=== PATIENT | male | born 1965 | race Two or more races ===

== ENCOUNTER 2023-06-11 10:01 | Emergency (ER) | payer OTHER ==
[~2023-06-11] VITALS: Ht 182.9 cm; Wt 96.3 kg
[2023-06-11 10:59] LABS: Basophils # (auto) 0.1 10 ^3/uL (0-0.2); Basophils % (auto) 1.1 % (0.0-2.0); Eosinophils # (auto) 0.3 10 ^3/uL (0-0.8); Eosinophils % (auto) 2.7 % (0.0-7.0); Hematocrit 48.1 % (41.0-53.0); Hemoglobin 16.9 g/dL (13.5-17.5); Lymphocytes # (auto) 2.1 10 ^3/uL (0.4-5.4); Lymphocytes % (auto) 20.8 % (10.0-50.0); Mean Corpuscular Hemoglobin 31.2 pg (28.0-32.0); Mean Corpuscular Hgb Conc. 35.2 g/dL (32.0-36.0); Mean Corpuscular Volume 88.6 fL (80.0-100.0); Monocytes # (auto) 0.9 10 ^3/uL (0-1.3); Monocytes % (auto) 8.7 % (0.0-12.0); Neutrophils # (auto) 6.7 10 ^3/uL (1.6-8.6); Neutrophils % (auto) 66.7 % (37.0-80.0); Nucleated Red Blood Cells % 0.1 %; Red Blood Cells 5.42 10^6/uL (4.5-5.90); Red Cell Distribution Width 13.7 % (11.8-14.3)
[2023-06-11] MEDS: SODIUM CHLORIDE 0.9% 500 ML IVB ONE (11:19)
[2023-06-11] MEDS: ONDANSETRON ODT 4 MG TAB PO ONE (11:24)
[2023-06-11 11:25] VITALS: PULSE 71; RESP 19; O2SAT 96
[2023-06-11 11:44] LABS: Alanine Aminotransferase 58 U/L (7-40); Albumin 4.5 g/dL (3.2-4.8); Alkaline Phosphatase 78 U/L (46-116); Anion Gap 6 (5-15); Aspartate Aminotransferase 37 U/L (13-40); BUN/Creatinine Ratio 14.2 (10.0-20.0); Blood Urea Nitrogen 17 mg/dL (9-23); Calcium 9.5 mg/dL (8.7-10.4); Carbon Dioxide 31 mmol/L (20-30); Chloride 99 mmol/L (98-107); Glucose 276 mg/dL (74-106); Lipase 47 U/L (12-53); Potassium 3.3 mmol/L (3.5-5.1); Sodium 136 mmol/L (136-145)
[2023-06-11 11:45] LABS: Bilirubin, Total 0.9 mg/dL (0.2-1.0); Total Protein 6.8 g/dL (5.7-8.2)
[2023-06-11 12:05] LABS: Urine Bacteria NONE SEEN /hpf (None Seen); Urine Blood Negative /uL (Negative); Urine Clarity Clear (Clear); Urine Color Yellow (Yellow); Urine Hyaline Cast FEW /lpf (0 - 2); Urine Mucus FEW (None Seen); Urine Protein, UAD TRACE (Negative); Urine Specific Gravity 1.028 (1.001-1.035); Urine Urobilinogen Normal (Negative); Urine WBC 1 /hpf (0 - 3)
[2023-06-11] MEDS ORDERED: ZOFR4T PO (12:15)
[2023-06-11 12:36] VITALS: BP 124/75; PULSE 61; RESP 15; TEMP 97; O2SAT 98
== END 2023-06-11 12:38 | disposition home or self-care (01) ==
LOC: ER 10:01
DX: B34.9 Viral infection, unspecified (principal); R11.0 Nausea; I10 Essential (primary) hypertension; Z79.899 Other long term (current) drug therapy
CPT/HCPCS: 36415; 74176; 80053; 81001; 83690; 85025; 96360; 99284; J7040; Q0162

== ENCOUNTER 2023-07-14 09:27 | Inpatient (IN) | payer OTHER ==
[~2023-07-14] VITALS: Ht 182.9 cm; Wt 95.6 kg
[~2023-07-14 09:27] MED LIST: ZOFR4T PO
[2023-07-14 10:12] LABS: Urine Bacteria None Seen /hpf (None Seen)
[2023-07-14 10:36] LABS: Basophils # (auto) 0.1 10 ^3/uL (0-0.2); Eosinophils # (auto) 0.2 10 ^3/uL (0-0.8); Eosinophils % (auto) 2.5 % (0.0-7.0); Hematocrit 48.8 % (41.0-53.0); Hemoglobin 16.9 g/dL (13.5-17.5); Lymphocytes # (auto) 1.7 10 ^3/uL (0.4-5.4); Lymphocytes % (auto) 24.3 % (10.0-50.0); Mean Corpuscular Hemoglobin 31.1 pg (28.0-32.0); Mean Corpuscular Hgb Conc. 34.6 g/dL (32.0-36.0); Monocytes # (auto) 0.5 10 ^3/uL (0-1.3); Monocytes % (auto) 7.2 % (0.0-12.0); Neutrophils # (auto) 4.5 10 ^3/uL (1.6-8.6); Nucleated Red Blood Cells % 0.1 %; Red Blood Cells 5.42 10^6/uL (4.5-5.90); Red Cell Distribution Width 13.5 % (11.8-14.3); White Blood Cell 6.9 10^3/uL (4.4-10.8)
[2023-07-14 10:39] LABS: Chloride 110 mmol/L (98-107); Sodium 144 mmol/L (136-145)
[2023-07-14 10:40] LABS: Anion Gap 8 (5-15); Calcium 9.5 mg/dL (8.5-10.1); Carbon Dioxide 26 mmol/L (20-30)
[2023-07-14 10:45] LABS: BUN/Creatinine Ratio 13.3 (10.0-20.0); Blood Urea Nitrogen 15 mg/dL (9-23); Glucose 297 mg/dL (74-106)
[2023-07-14 11:10] LABS: Urine Blood Negative /uL (Negative); Urine Clarity Clear (Clear); Urine Color Light-Yellow (Yellow); Urine Protein, UAD Negative (Negative); Urine Specific Gravity 1.028 (1.001-1.035); Urine Urobilinogen Normal (Negative); Urine WBC <1 /hpf (0 - 3)
[2023-07-14] MEDS: SODIUM CHLORIDE 0.9% 1,000 ML IV ONE (11:13)
[2023-07-14] MEDS ORDERED: ONDANSETRON HCL 4 MG/2 ML VIAL IV PRN (12:30)
[2023-07-14] MEDS ORDERED: DOCUSATE SOD 100 MG CAP PO PRN (12:30)
[2023-07-14] MEDS ORDERED: DEXTROSE (50%) 50ML SYRG IV PRN (12:30)
[2023-07-14] MEDS ORDERED: MORPHINE SULFATE INJ 2 MG/ml SYRG IV PRN (12:30)
[2023-07-14] MEDS: ACCU-CHEK COMFORT CURVE STRIP VI SCH (22:17)
[2023-07-14] MEDS: SODIUM CHLORIDE 0.9% 1,000 ML IV SCH (22:17)
[2023-07-14] MEDS: InsuLIN REG 1unit/0.01ml Soln (100units/ml) SC SCH (22:21)
[2023-07-14 22:24] VITALS: PULSE 62; RESP 18; O2SAT 97
[2023-07-14] MEDS: TAMSULOSIN HYDROCHLORIDE 0.4 MG CAP PO SCH (22:28)
[2023-07-15] VITALS (8 sets, daily range): BP systolic 115–138; BP diastolic 72–92; PULSE 48–75; RESP 14–20; TEMP 97.9–98.3; O2SAT 92–100
[2023-07-15] MEDS ORDERED: LISI20TA56 PO (00:30)
[2023-07-15] MEDS ORDERED: LISI-707 PO (00:30)
[2023-07-15] MEDS ORDERED: TAMS-35 PO (00:31)
[2023-07-15 05:43] LABS: Basophils # (auto) 0.1 10 ^3/uL (0-0.2); Basophils % (auto) 0.7 % (0.0-2.0); Eosinophils # (auto) 0.2 10 ^3/uL (0-0.8); Eosinophils % (auto) 2.8 % (0.0-7.0); Hemoglobin 14.8 g/dL (13.5-17.5); Lymphocytes % (auto) 25.1 % (10.0-50.0); Mean Corpuscular Hemoglobin 31.6 pg (28.0-32.0); Mean Corpuscular Hgb Conc. 35.2 g/dL (32.0-36.0); Mean Corpuscular Volume 89.6 fL (80.0-100.0); Monocytes # (auto) 0.6 10 ^3/uL (0-1.3); Monocytes % (auto) 7.7 % (0.0-12.0); Neutrophils # (auto) 5.1 10 ^3/uL (1.6-8.6); Neutrophils % (auto) 63.7 % (37.0-80.0); Red Blood Cells 4.69 10^6/uL (4.5-5.90); Red Cell Distribution Width 13.3 % (11.8-14.3)
[2023-07-15 05:52] LABS: Alanine Aminotransferase 40 U/L (7-40); Albumin 3.7 g/dL (3.2-4.8); Alkaline Phosphatase 65 U/L (46-116); Anion Gap 5 (5-15); Aspartate Aminotransferase 21 U/L (13-40); BUN/Creatinine Ratio 23.7 (10.0-20.0); Bilirubin, Total 1.4 mg/dL (0.2-1.0); Blood Urea Nitrogen 23 mg/dL (9-23); Calcium 9.1 mg/dL (8.7-10.4); Carbon Dioxide 29 mmol/L (20-30); Chloride 108 mmol/L (98-107); Potassium 3.6 mmol/L (3.5-5.1); Sodium 142 mmol/L (136-145); Total Protein 5.5 g/dL (5.7-8.2)
[2023-07-15] MEDS: ACETAMINOPHEN 325 MG TAB PO PRN (06:14)
[2023-07-15 06:24] LABS: Glucose 153 mg/dL (74-106)
[2023-07-16 01:00] VITALS: BP_SYST 138; BP_SYST 143; BP_DIAS 85; BP_DIAS 89; PULSE 57; PULSE 69; RESP 20; TEMP 97.8; O2SAT 93; O2SAT 95
[2023-07-16 05:00] VITALS: BP 136/89; PULSE 69; RESP 20; TEMP 98.1; O2SAT 96
[2023-07-16 07:06] LABS: Anion Gap 3 (5-15); Carbon Dioxide 27 mmol/L (20-30); Chloride 112 mmol/L (98-107); Potassium 3.9 mmol/L (3.5-5.1); Sodium 142 mmol/L (136-145)
[2023-07-16 07:08] LABS: Calcium 8.9 mg/dL (8.7-10.4)
[2023-07-16 07:12] LABS: BUN/Creatinine Ratio 20.4 (10.0-20.0); Blood Urea Nitrogen 19 mg/dL (9-23); Glucose 133 mg/dL (74-106)
[2023-07-16 07:15] LABS: Folate (Folic Acid) 10.32 ng/mL (>5.38)
[2023-07-16 07:19] LABS: Basophils # (auto) 0 10 ^3/uL (0-0.2); Basophils % (auto) 0.6 % (0.0-2.0); Eosinophils # (auto) 0.2 10 ^3/uL (0-0.8); Eosinophils % (auto) 3.4 % (0.0-7.0); Hematocrit 42.5 % (41.0-53.0); Hemoglobin 14.8 g/dL (13.5-17.5); Lymphocytes # (auto) 1.5 10 ^3/uL (0.4-5.4); Lymphocytes % (auto) 24.6 % (10.0-50.0); Mean Corpuscular Hemoglobin 31.3 pg (28.0-32.0); Mean Corpuscular Hgb Conc. 34.9 g/dL (32.0-36.0); Mean Corpuscular Volume 89.7 fL (80.0-100.0); Monocytes # (auto) 0.5 10 ^3/uL (0-1.3); Neutrophils # (auto) 3.8 10 ^3/uL (1.6-8.6); Neutrophils % (auto) 63.4 % (37.0-80.0); Nucleated Red Blood Cells % 0.2 %; Red Blood Cells 4.74 10^6/uL (4.5-5.90); Red Cell Distribution Width 13.6 % (11.8-14.3)
[2023-07-16 08:00] VITALS: PULSE 51
[2023-07-16 09:00] VITALS: BP 149/76; PULSE 57; RESP 20; TEMP 97.5; O2SAT 98
[2023-07-16 13:00] VITALS: BP_SYST 123; BP_SYST 142; BP_SYST 147; BP_DIAS 82; BP_DIAS 92; BP_DIAS 95; PULSE 56; RESP 18; TEMP 98; O2SAT 93
[2023-07-16] MEDS ORDERED: METF-489 PO (13:43)
[2023-07-16] MEDS ORDERED: LINA5TAB PO (13:43)
[2023-07-16 14:30] VITALS: TEMP 36.7
== END 2023-07-16 15:30 | disposition home or self-care (01) | DRG 639 ==
LOC: ER 09:27 → TELE 13:33 → TELE-WESTW 23:07
PROVIDERS: ADMIT Internal Medicine Pulmonary Disease; ATTEND Internal Medicine Pulmonary Disease
DX: E11.65 Type 2 diabetes mellitus with hyperglycemia (principal); I49.5 Sick sinus syndrome; I10 Essential (primary) hypertension; N40.0 Benign prostatic hyperplasia without lower urinary tract symptoms; Z79.4 Long term (current) use of insulin; Z79.899 Other long term (current) drug therapy
CPT/HCPCS: 36415; 70450; 80048; 80053; 81001; 82010; 82607; 82746; 82962; 83036; 83735; 84443; 84484; 85025; 93306; 93886; 96360; G0378; J1815

== ENCOUNTER 2024-01-14 15:13 | Emergency (ER) | payer OTHER ==
[~2024-01-14] VITALS: Ht 182.9 cm; Wt 96.9 kg
[~2024-01-14 15:13] MED LIST changes: +LINA5TAB PO; +LISI-707 PO; +METF-489 PO; +TAMS-35 PO
[2024-01-14 15:42] VITALS: BP 143/97; PULSE 75; RESP 16; TEMP 98; O2SAT 97
[2024-01-14] MEDS: cefTRIAXone SOD 1,000 MG VL IM ONE (16:43)
[2024-01-14 17:22] LABS: Basophils # (auto) 0.1 10 ^3/uL (0-0.2); Eosinophils # (auto) 0.4 10 ^3/uL (0-0.8); Eosinophils % (auto) 5.7 % (0.0-7.0); Hematocrit 43.6 % (41.0-53.0); Hemoglobin 15.3 g/dL (13.5-17.5); Lymphocytes # (auto) 1.6 10 ^3/uL (0.4-5.4); Lymphocytes % (auto) 22.5 % (10.0-50.0); Mean Corpuscular Hemoglobin 31.8 pg (28.0-32.0); Mean Corpuscular Hgb Conc. 35.1 g/dL (32.0-36.0); Mean Corpuscular Volume 90.9 fL (80.0-100.0); Monocytes # (auto) 0.8 10 ^3/uL (0-1.3); Monocytes % (auto) 10.6 % (0.0-12.0); Neutrophils # (auto) 4.3 10 ^3/uL (1.6-8.6); Neutrophils % (auto) 60.2 % (37.0-80.0); Nucleated Red Blood Cells % 0.1 %; Platelet Count (auto) 247 10^3/uL (140-450); Red Blood Cells 4.79 10^6/uL (4.5-5.90); Red Cell Distribution Width 13.6 % (11.8-14.3); White Blood Cell 7.2 10^3/uL (4.4-10.8)
[2024-01-14 17:25] LABS: Chloride 109 mmol/L (98-107); Sodium 146 mmol/L (136-145)
[2024-01-14 17:26] LABS: Anion Gap 6 (5-15); Calcium 10.5 mg/dL (8.7-10.4); Carbon Dioxide 31 mmol/L (20-31)
[2024-01-14] MEDS ORDERED: TRIO1TP EX (17:28)
[2024-01-14] MEDS ORDERED: LORA10TA6 PO (17:28)
[2024-01-14 17:31] LABS: BUN/Creatinine Ratio 11.7 (10.0-20.0); Blood Urea Nitrogen 13 mg/dL (9-23); Glucose 115 mg/dL (74-106)
== END 2024-01-14 17:56 | disposition home or self-care (01) ==
LOC: ER 15:13
DX: I87.2 Venous insufficiency (chronic) (peripheral) (principal); I10 Essential (primary) hypertension; Z79.84 Long term (current) use of oral hypoglycemic drugs; Z79.899 Other long term (current) drug therapy
CPT/HCPCS: 36415; 80048; 85025; 93970; 96372; 99285; J0696

== ENCOUNTER 2024-07-13 09:33 | Inpatient (IN) | payer OTHER ==
[~2024-07-13] VITALS: Ht 182.9 cm; Wt 95.0 kg
[~2024-07-13 09:33] MED LIST changes: +LORA10TA6 PO; +TRIO1TP EX
--- NOTE | 2024-07-13 10:01 | ECG ---
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
--- NOTE | 2024-07-13 11:03 | ED.PDOC ---
History of Present Illness HPI Comments 59 y/o M, with a Hx of DMII, HTN, BPH, and chewing tobacco use, presents with c/o dizziness, lightheadedness, nausea, headache, and shortness of breath for 4 days, today. Patient reports persisting symptoms that occur whenever he stands up or stand for prolong periods of time following initial, unprovoked onset. He also reports on having yellow-watery diarrhea with other symptoms that has since subsided prior to ED arrival. Patient reports no recent injuries, sick contact, travel, or other relevant information upon initial assessment. He denies any chest pain, weakness, fever, chills, urinary symptoms, or other associated symptoms or modifiers at this time. Chief Complaint: Dizziness Time Seen by MD: 10:45 Primary Care Provider: unknown Reviewed Notes: Nurses Notes, Medications, Allergies Allergies: Coded Allergies: Penicillins (Verified Allergy, Severe, anaphylaxis, 07/13/24) Home Meds Active Scripts Loratadine (Loratadine) 10 Mg Tab, 10 MG PO DAILY for 30 Days, #30 TAB 0 Refills Prov:RATNA BECKER NP 01/14/24 Triamcinolone Acetonide (Triamcinolone Acetonide) 0.1 % Cre, 2 GRAMS EX BID for 10 Days, #120 GRAMS 0 Refills Prov:RATNA BECKER NP 01/14/24 Linagliptin Base (TRADJENTA) 5 Mg Tab, 1 TAB PO DAILY for 30 Days, #30 TAB 2 Refills Prov:STEFANIE CHAVEZ RESIDENT 07/16/23 Metformin Hydrochloride (METFORMIN HCL ER) 500 Mg Tab, 1 TAB PO DAILY for 30 Days, #30 TAB 2 Refills Prov:STEFANIE CHAVEZ RESIDENT 07/16/23 Ondansetron Odt 4MG Tab (ZOFRAN PO) 4 Mg Tb, 4 MG PO Q8HP PRN for 5 Days, #15 TAB ODT TAB-DISSOLVE IN MOUTH, THEN SWALLOW Prov:EDELMIRA RICHTER MD 06/11/23 Reported Medications Tamsulosin Hcl (Flomax) 0.4 Mg Cap, 0.4 MG PO DAILY, CAP 07/15/23 Lisinopril & Hydrochlorothiazi (Zestoretic 20-25 mg) 1 Tab Tab, 1 TAB PO DAILY, TAB 07/15/23 Information Source: Patient Mode of Arrival: Ambulatory Severity: Moderate Timing: Days Duration: Since onset Prehospital treatment: None Past Medical History PAST MEDICAL HISTORY: DM (type II ), HTN Past Medical History (Other): BPH Surgical History: Tonsillectomy Family History Family History: Reviewed,noncontributory to illness, No family hx of Cancer, No family hx of Heart vamsi, No family hx of HTN, No family hx ofKidney vamsi, No family hx of Liver vamsi, No family hx of Lung vamsi, No family hx of Stroke, Family hx of DM Social History Smoker: Non-Smoker Alcohol: Denies ETOH Use Drugs: Other (chewing tobacco ) Lives In: Home Constitutional: denies: chills, diaphoresis, fatigue, fever, malaise, sweats, weakness, others EENTM: denies: blurred vision, double vision, ear bleeding, ear discharge, ear drainage, ear pain, ear ringing, eye pain, eye redness, hearing loss, mouth pain, mouth swelling, nasal discharge, nose bleeding, nose congestion, nose pa in, photophobia, tearing, throat pain, throat swelling, voice changes, others Respiratory: reports: shortness of breath; denies: cough, hemoptysis, orthopnea, SOB at rest, SOB with excertion, stridor, wheezing, others Cardiovascular: reports: dizzy spells, lightheadedness; denies: chest pain, diaphoresis, Dyspnea on exertion, edema, irregular heart beat, left arm pain, palpitations, PND, syncope, others Gastrointestinal: reports: nausea; denies: abdomen distended, abdominal pain, blood streaked bowels, constipated, diarrhea, dysphagia, difficulty swallowing, hematemesis, melena, poor appetite, poor fluid intake, rectal bleeding, rectal pain, vomiting, others Genitourinary: denies: burning, dysuria, flank pain, frequency, hematuria, incontinence, penile discharge, penile sore, pain, testicle pain, testicle swelling, urgency, others Neurological: reports: headache; denies: dizziness, fainting, left sided numbness, left sided weakness, numbness, paresthesia, pre-existing deficit, right sided numbness, right sided weakness, seizure, speech problems, tingling, tremors, weakness, others Musculoskeletal: denies: back pain, gout, joint pain, joint swelling, muscle pain, muscle stiffness, neck pain, others Integumetry: denies: bruises, change in color, change in hair/nails, dryness, laceration, lesions, lumps, rash, wounds, others Allergic/Immunocompromised: denies: Difficulty Healing, Frequent Infections, Hives, Itching, others Hematologic/Lymphatic: denies: anemia, blood clots, easy bleeding, easy bruising, swollen glands, others Endocrine: denies: excessive hunger, excessive sweating, excessive thirst, excessive urination, flushing, intolerance to cold, intolerance to heat, unexplained weight gain, unexplained weight loss, others Psychiatric: denies: anxiety, bipolar disorder, depression, hopeless, panic disorder, schizophrenia, sleepless, suicidal, others All Other Systems: Reviewed and Negative Physical Exam General Appearance: Moderate Distress HEENT: Normal ENT Inspection, Pharynx Normal, TMs Normal Neck: Full Range of Motion, Non-Tender, Normal, Normal Inspection Respiratory: Chest Non-Tender, Lungs Clear, No Accessory Muscle Use, No Respiratory Distress, Normal Breath Sounds Cardiovascular: No Edema, No JVD, No Murmur, No Gallop, Normal Peripheral Pulses, Regular Rate/Rhythm Breast Exam: Deferred Gastrointestinal: No Organomegaly, Non Tender, No Pulsatile Mass, Normal Bowel Sounds, Soft Genitalia: Deferred Pelvic: Deferred Rectal: Deferred Extremities: No calf tenderness, Normal capillary refill, No pedal edema Musculoskeletal : Apperance: Normal Neurologic: Alert, graduate internship II-XII nml as Tested, Motor Weakness, Normal Affect, Normal Mood, No Sensory Deficits Cerebellar Function: Ataxia Reflexes: Normal Skin: Dry, Normal Color, Warm Lymphatic: No Adenopathy Was a procedure done? Was a procedure done?: No Differential Dx Considerations may include: vertigo, electrolyte imbalance, dehydration, viral syndrome, URI, UTI, among others X-Ray, Labs, Meds, VS Vital Signs Date Time Temp Pulse Resp B/P (MAP) Pulse Ox O2 Delivery O2 Flow Rate FiO2 07/13/24 09:54 97.9 87 18 111/72 (85) 96 97.9 07/13/24 09:52 72 Lab Test 07/13/24 11:09 Range/Units White Blood Count 8.1 4.4-10.8 10^3/uL Red Blood Count 5.53 4.5-5.90 10^6/uL Hemoglobin 17.2 13.5-17.5 g/dL Hematocrit 50.0 41.0-53.0 % Mean Corpuscular Volume 90.5 80.0-100.0 fL Mean Corpuscular Hemoglobin 31.1 28.0-32.0 pg Mean Corpuscular Hemoglobin Concent 34.4 32.0-36.0 g/dL Red Cell Distribution Width 13.6 11.8-14.3 % Platelet Count 232 140-450 10^3/uL Mean Platelet Volume 7.8 6.9-10.8 fL Neutrophils (%) (Auto) 63.1 37.0-80.0 % Lymphocytes (%) (Auto) 24.5 10.0-50.0 % Monocytes (%) (Auto) 9.2 0.0-12.0 % Eosinophils (%) (Auto) 2.2 0.0-7.0 % Basophils (%) (Auto) 1.0 0.0-2.0 % Neutrophils # (Auto) 5.1 1.6-8.6 10 ^3/uL Lymphocytes # (Auto) 2.0 0.4-5.4 10 ^3/uL Monocytes # (Auto) 0.7 0-1.3 10 ^3/uL Eosinophils # (Auto) 0.2 0-0.8 10 ^3/uL Basophils # (Auto) 0.1 0-0.2 10 ^3/uL Nucleated Red Blood Cells 0.1 % D-Dimer, Quantitative 0.30 0.0-0.49 mg/L FEU Sodium Level 142 136-145 mmol/L Potassium Level 3.4 L 3.5-5.1 mmol/L Chloride Level 103 98-107 mmol/L Carbon Dioxide Level 30 20-31 mmol/L Anion Gap 9 5-15 Blood Urea Nitrogen 21 9-23 mg/dL Creatinine 1.11 0.700-1.30 mg/dL Glomerular Filtration Rate Calc 76 >90 mL/min BUN/Creatinine Ratio 18.9 10.0-20.0 Serum Glucose 124 H 74-106 mg/dL Calcium Level 10.4 8.7-10.4 mg/dL CAT scan of the head is negative The patient's CBC is within normal limits The chemistry panel is within normal limits The D-dimer is negative At this time, the patient is stating they can get somewhat dizzy and seems somewhat off balance. The patient is being admitted with a diagnosis of autonomic dysfunction IV Hep-Lock was established Neurology consult will be obtained Images Reviewed?: Images reviewed and evaluated by me Time of 1ST Reevaluation: 11:15 Reevaluation 1ST: Unchanged Patient Education/Counseling: Diagnosis, Treatment, Prognosis Family Education/Counseling: No Family Present Departure 1 Departure Time of Disposition: 12:07 Impression: Primary Impression: Generalized weakness Additional Impression: Autonomic dysfunction Disposition: 09 ADMITTED INPATIENT Admit to: Tele Condition: Fair Critical Care Note Critical Care Time?: Yes (35 min-critical care time only) Stability Stability form required: Yes Unstable for transfer: Telemetry monitoring (Telemetry monitoring required), ED Physician Assesment (Clinical assesment) Heart Score Heart Score: Heart Score Response (Comments) Value History Moderate Suspicious 1 EKG Normal 0 Age 45-64 1 Risk Factors >3 or Hx ASHD 2 Troponin N/A 0 Total 4 I personally scribed for EDELMIRA RICHTER MD ([email or web address]) on 07/13/24 at 11:03. Electronically submitted by Jeffrey Virgen ([email or web address]). EDELMIRA RICHTER MD Jul 13, 2024 11:03
--- NOTE | 2024-07-13 11:18 | DVH ---
CLINICAL INFORMATION: 59 years old, Male; dizziness. TECHNIQUE: Axial imaging was obtained through the brain without contrast. Coronal and sagittal reform atted images were obtained, reviewed, and stored. Images were reviewed in brain and bone windows. Al l CT scans at this medical facility are performed using dose modulation techniques as appropriate to a performed exam including the following: Automated exposure control was utilized; adjustment of the MA and/or KV according to patient size; and use of iterative reconstruction technique. CTDIvol = 56.9 2 mGy DLP = 912.37 mGy-cm COMPARISON: CT HEAD WITHOUT CONTRAST on DOS: 07/14/23 FINDINGS: There is no acute intracranial hemorrhage. No mass effect or midline shift. The ventricles and sulci are within normal limits in size for age. Basal cisterns are patent. The calvarium is unre markable. Paranasal sinuses and mastoid air cells are clear. IMPRESSION: No CT evidence of acute intracranial abnormality.
[2024-07-13 11:30] LABS: Chloride 103 mmol/L (98-107); Sodium 142 mmol/L (136-145)
[2024-07-13 11:31] LABS: Anion Gap 9 (5-15); Carbon Dioxide 30 mmol/L (20-31)
[2024-07-13 11:36] LABS: BUN/Creatinine Ratio 18.9 (10.0-20.0); Blood Urea Nitrogen 21 mg/dL (9-23)
[2024-07-13 11:38] LABS: Calcium 10.4 mg/dL (8.7-10.4); Glucose 124 mg/dL (74-106); Potassium 3.4 mmol/L (3.5-5.1)
[2024-07-13 11:40] LABS: Basophils # (auto) 0.1 10 ^3/uL (0-0.2); Eosinophils # (auto) 0.2 10 ^3/uL (0-0.8); Eosinophils % (auto) 2.2 % (0.0-7.0); Hemoglobin 17.2 g/dL (13.5-17.5); Lymphocytes % (auto) 24.5 % (10.0-50.0); Mean Corpuscular Hemoglobin 31.1 pg (28.0-32.0); Mean Corpuscular Hgb Conc. 34.4 g/dL (32.0-36.0); Mean Corpuscular Volume 90.5 fL (80.0-100.0); Monocytes # (auto) 0.7 10 ^3/uL (0-1.3); Monocytes % (auto) 9.2 % (0.0-12.0); Neutrophils # (auto) 5.1 10 ^3/uL (1.6-8.6); Neutrophils % (auto) 63.1 % (37.0-80.0); Nucleated Red Blood Cells % 0.1 %; Platelet Count (auto) 232 10^3/uL (140-450); Red Blood Cells 5.53 10^6/uL (4.5-5.90); Red Cell Distribution Width 13.6 % (11.8-14.3); White Blood Cell 8.1 10^3/uL (4.4-10.8)
[2024-07-13 14:01] VITALS: PULSE 66; RESP 16; O2SAT 97
[2024-07-13] MEDS ORDERED: [UNRECOGNIZED DRUG - CODE] PO (14:41)
[2024-07-13] MEDS ORDERED: HYDROcodone-ACET 5/325MG TAB PO PRN (14:45)
[2024-07-13] MEDS ORDERED: DOCUSATE SOD 100 MG CAP PO PRN (14:45)
[2024-07-13] MEDS ORDERED: MORPHINE SULFATE INJ 2 MG/ml SYRG IV PRN (14:45)
[2024-07-13] MEDS ORDERED: DEXTROSE (50%) 50ML SYRG IV PRN (14:45)
[2024-07-13] MEDS ORDERED: ONDANSETRON HCL 4 MG/2 ML VIAL IV PRN (14:45)
[2024-07-13] MEDS ORDERED: NITROGLYCERIN 0.4 MG SL TAB SL PRN (14:45)
--- NOTE | 2024-07-13 14:57 | DVHHP2 ---
History of Present Illness Reason for Visit: Dizziness History of Present Illness Norman Garibay is a 59-year-old male with past medical history of hypertension, diabetes, and BPH, who came in with complaints of being dizzy. Patient states he has been dizzy and had diarrhea for about 5 days. He took medication for the diarrhea yesterday 3 times and states he had diarrhea twice yesterday morning, but nothing since. He states he has been experiencing nausea and headaches as well. Cardiovascular: HTN Musculoskeletal: Chronic low back pain Renal/: Benign prostatic enlarg. Endocrine: Diabetes Past Surgical History: Tonsillectomy Smoke: No ALCOHOL: none Drugs: None Lives: with Family Domestic Violence: Neg Review of Systems Constitutional: Yes: Weakness, Other (headache); No: Fever, Chills, Sweats, Malaise Eyes: No: Pain, Vision change, Conjunctivae inflammation, Eyelid inflammation, Other, Redness ENT: No: Ear pain, Ear discharge, Nose pain, Nose discharge, Nose congestion, Mouth pain, Mouth swelling, Throat pain, Throat swelling, Other Respiratory: No: Cough, Dry, Shortness of breath, SOB with excertion, Wheezing, Hemoptysis, Pleuritic Pain, Sputum, Wheezing, Other Cardiovascular: No: Chest Pain, Palpitations, Orthopnea, Paroxysmal Noc. Dyspnea, Edema, Lt Headedness, Other Gastrointestinal: Diarrhea; No: Nausea, Vomiting, Abdominal Pain, Constipation, Melena, Hematochezia, Other Genitourinary: No Dysuria, No Frequency, No Incontinence, No Hematuria, No Retention, No Other Musculoskeletal: No: other, neck pain, shoulder pain, arm pain, back pain, hand pain, leg pain, foot pain Skin: No: Rash, Lesions, Jaundice, Bruising, Other Neurological: Incoordination, Other (dizziness); No: Weakness, Numbness, Change in speech, Confusion, Seizures Allergies: Coded Allergies: Penicillins (Verified Allergy, Severe, anaphylaxis, 07/13/24) Medications Current Medications Medications Dose Ordered Sig/Shubham Route Start Time Stop Time Status Last Admin Dose Admin Acetaminophen/ Hydrocodone Bitart 1 tab Q4HP PRN PO 07/13/24 14:45 UNV Ondansetron HCl 4 mg Q4HP PRN IV 07/13/24 14:45 UNV Docusate Sodium 100 mg BIDPRN PRN PO 07/13/24 14:45 UNV Acetaminophen 650 mg Q6HP PRN PO 07/13/24 14:45 UNV Nitroglycerin 0.4 mg Q5MINP PRN SL 07/13/24 14:45 UNV Morphine Sulfate 2 mg Q30M PRN IV 07/13/24 14:45 UNV Tamsulosin HCl 0.4 mg DAILY PO 07/14/24 10:00 UNV Patient Own Medication 1 tab DAILY PO 07/14/24 10:00 UNV Diagnostic Test (Pha) 1 strip ACHS 07/13/24 17:00 UNV Insulin Human Regular HS SC 07/13/24 22:00 UNV Insulin Human Regular AC SC 07/13/24 17:00 UNV Dextrose 50 ml UD PRN IV 07/13/24 14:45 UNV Exam Vital Signs Vital Signs Date Time Temp Pulse Resp B/P (MAP) Pulse Ox O2 Delivery O2 Flow Rate FiO2 07/13/24 14:34 51 16 91/60 (70) 97 07/13/24 14:01 Room Air* 0 21 07/13/24 14:01 98.2 98.2 General Appearance: Alert, Oriented X3, Cooperative HEENT: Atraumatic, PERRLA, Mucous membr. moist/pink Respiratory: Clear to auscultation, Normal air movement Cardiovascular: Regular rate, Normal S1, Normal S2, No murmurs Abdominal: Normal bowel sounds, Soft, No tenderness, No hepatospenomegaly Extremities: No clubbing, No cyanosis, No edema, Normal pulses Skin: No rashes, No breakdown, No significant lesion Neuro: Normal gait, Normal speech, Strength at 5/5 X4 ext, Normal tone Psych/Mental Status: Mental status NL, Mood NL Labs/Xrays Labs Test 07/13/24 11:09 Range/Units White Blood Count 8.1 4.4-10.8 10^3/uL Red Blood Count 5.53 4.5-5.90 10^6/uL Hemoglobin 17.2 13.5-17.5 g/dL Hematocrit 50.0 41.0-53.0 % Mean Corpuscular Volume 90.5 80.0-100.0 fL Mean Corpuscular Hemoglobin 31.1 28.0-32.0 pg Mean Corpuscular Hemoglobin Concent 34.4 32.0-36.0 g/dL Red Cell Distribution Width 13.6 11.8-14.3 % Platelet Count 232 140-450 10^3/uL Mean Platelet Volume 7.8 6.9-10.8 fL Neutrophils (%) (Auto) 63.1 37.0-80.0 % Lymphocytes (%) (Auto) 24.5 10.0-50.0 % Monocytes (%) (Auto) 9.2 0.0-12.0 % Eosinophils (%) (Auto) 2.2 0.0-7.0 % Basophils (%) (Auto) 1.0 0.0-2.0 % Neutrophils # (Auto) 5.1 1.6-8.6 10 ^3/uL Lymphocytes # (Auto) 2.0 0.4-5.4 10 ^3/uL Monocytes # (Auto) 0.7 0-1.3 10 ^3/uL Eosinophils # (Auto) 0.2 0-0.8 10 ^3/uL Basophils # (Auto) 0.1 0-0.2 10 ^3/uL Nucleated Red Blood Cells 0.1 % D-Dimer, Quantitative 0.30 0.0-0.49 mg/L FEU Sodium Level 142 136-145 mmol/L Potassium Level 3.4 L 3.5-5.1 mmol/L Chloride Level 103 98-107 mmol/L Carbon Dioxide Level 30 20-31 mmol/L Anion Gap 9 5-15 Blood Urea Nitrogen 21 9-23 mg/dL Creatinine 1.11 0.700-1.30 mg/dL Glomerular Filtration Rate Calc 76 >90 mL/min BUN/Creatinine Ratio 18.9 10.0-20.0 Serum Glucose 124 H 74-106 mg/dL Calcium Level 10.4 8.7-10.4 mg/dL CT Head: FINDINGS: There is no acute intracranial hemorrhage. No mass effect or midline shift. The ventricles and sulci are within normal limits in size for age. Basal cisterns are patent. The calvarium is unremarkable. Paranasal sinuses and mastoid air cells are clear. IMPRESSION: No CT evidence of acute intracranial abnormality. Assessment/Plan Assessment/Plan Assessment: Autonomic dysfunction, Hypokalemia, Dehydration, Hypertension, Diabetes, Plan: Admit to Tele, Neurology consult, IV hydration, Manage/Monitor electrolytes closely, Home medications reconciled, Plan discussed with: Patient My Orders Orders - GREYSON PELAYO CONCRETE VIBRATOR OPERATOR Procedure Category Date Status Time Admit ADMIT 07/13/24 Transmitted 14:32 Code Status CODE 07/13/24 Transmitted 14:32 2 Gm Sodium Diet DIET 07/13/24 Transmitted Dinner Hydrocodone-Acet PHA 07/13/24 Logged 5/325mg Tab ([place] 14:45 Ondansetron Hcl PHA 07/13/24 Logged (Zofran) 14:45 Docusate Sodium PHA 07/13/24 Logged Capsule (Colace 14:45 Complete Blood Count LAB 07/14/24 Verified 04:00 Comprehensive LAB 07/14/24 Verified Metabolic Panel 04:00 Condition: Serious BRIANA 07/13/24 In Process 14:32 Acetaminophen Tablet PHA 07/13/24 Logged (Tylenol Tablet) 14:45 Nitroglycerin PHA 07/13/24 Logged Sublingual (Ntrostat 14:45 Morphine Sulfate PHA 07/13/24 Logged Injection 14:45 Stat Ekg For Chest BRIANA 07/13/24 In Process Pain 14:32 Notify Md Of Changes BANNER 07/13/24 In Process From Base 14:32 Wastewater Treatment Plant Supervisor For BANNER 07/13/24 In Process 24 Hours 14:32 Emergency Dysrhythmia BANNER 07/13/24 In Process Protocol 14:32 Rhythm Strips Once BANNER 07/13/24 In Process Every Shift 14:32 Oxygen By Nasal RT 07/13/24 Transmitted Cannula 14:32 Tamsulosin PHA 07/14/24 Logged Hydrochloride (Flomax) 10:00 (Nf) Lisinopril & PHA 07/14/24 Logged Hydrochlorothiazi (Zes 10:00 Glucose Blood PHA 07/13/24 Logged (Accu-Chek Comfort 17:00 Insulin R (Human) PHA 07/13/24 Logged (Insulin R) 22:00 Insulin R (Human) PHA 07/13/24 Logged (Insulin R) 17:00 Dextrose 50% Syringe PHA 07/13/24 Logged 14:45 Sodium Chloride 0.9% PHA 07/13/24 Logged 14:45 Potassium Er Tablet PHA 07/13/24 Logged (Klor-Con Tablet) 14:45 Date of Service: Jul 13, 2024 Billing Provider: GREYSON PELAYO CONCRETE VIBRATOR OPERATOR Common Visit Codes: [id number] INP/OBS CARE (MOD) GREYSON PELAYO [facility] Jul 13, 2024 14:57
[2024-07-13] MEDS: SODIUM CHLORIDE 0.9% 1,000 ML IV ONE (15:41)
[2024-07-13] MEDS: POTASSIUM CHL 20 Meq TABLET PO ONE (15:49)
[2024-07-13 15:54] LABS: COVID19 ANTIGEN SOFIA FIA NEGATIVE (NEGATIVE)
[2024-07-13 17:00] LABS: Urine Bacteria None Seen /hpf (None Seen)
[2024-07-13 17:14] LABS: Urine Blood Negative /uL (Negative); Urine Clarity Clear (Clear); Urine Color Light-Yellow (Yellow); Urine Hyaline Cast FEW /lpf (0 - 2); Urine Mucus FEW (None Seen); Urine Protein, UAD TRACE (Negative); Urine Specific Gravity 1.016 (1.001-1.035); Urine Squamous Epithelial Cell FEW /hpf (<5); Urine Urobilinogen Normal (Negative); Urine WBC < 1 /HPF (0-3); Urine pH 5.5 (5.0-9.0)
[2024-07-13] MEDS: ACCU-CHEK COMFORT CURVE STRIP VI SCH (17:50)
[2024-07-13] MEDS: InsuLIN REG 1unit/0.01ml Soln (100units/ml) SC SCH ×2 (17:51→22:00)
--- NOTE | 2024-07-13 23:30 | DVHINCON2 ---
Date of service: Jul 13, [address] Elena Reason for Consultation Cerebellar dysfunction History of Present Illness Mr. Garibay is a 59 years old right-handed gentleman with a history of hypertension, diabetes, BPH, he came to the [facility] on 07/13/2024 with a chief company of dizziness, headache. At this time, he is alert and fully oriented, but is not a good historian,, he provided the following history Since 05/2024, he has very brief spells of dizziness/spinning sensation, being tilted off triggered by lying down, getting up from bed, reason or bending the head Since 05/2024, he has bed consistent dizziness/spinning sensation along with nausea, headache, and problems are obvious worsened by lying down, getting up, raising or bending the head, he also has associated imbalance, nausea. He denies vision changes focal weakness numbness except for intermittent pain in the right leg Urinalysis, 07/13/2024: WBC: 1, urine leukocyte esterase: negative CBC, 07/13/2024: Unremarkable BMP, 07/13/2024: Unremarkable Vitamin B12, 06/2023: 970 Folic acid, 06/2023: 10.32 CT head, : No CT evidence of acute intracranial abnormality Past Medical History Hypertension, diabetes, BPH Past Surgical History Tonsillectomy Family History: Diabetes mellitus G8 MOTHER Family History Diabetes mother had dementia Social History He is not a tobacco smoker, he chews tobacco. He was no history of alcohol or recreational substance abuse Allergies: Coded Allergies: Penicillins (Verified Allergy, Severe, anaphylaxis, 07/13/24) Home Meds Active Scripts Loratadine (Loratadine) 10 Mg Tab, 10 MG PO DAILY for 30 Days, #30 TAB 0 Refills Prov:RATNA BECKER GEOCHEMIST 01/14/24 Linagliptin Base (TRADJENTA) 5 Mg Tab, 1 TAB PO DAILY for 30 Days, #30 TAB 2 Refills Prov:STEFANIE CHAVEZ 07/16/23 Reported Medications Metformin Hydrochloride (Glumetza) 1,000 Mg Tab, 1000 MG PO BID 07/13/24 Tamsulosin Hcl (Flomax) 0.4 Mg Cap, 0.4 MG PO DAILY, CAP 07/15/23 Lisinopril & Hydrochlorothiazi (Zestoretic 20-25 mg) 1 Tab Tab, 1 TAB PO DAILY, TAB 07/15/23 Discontinued Scripts Triamcinolone Acetonide (Triamcinolone Acetonide) 0.1 % Cre, 2 GRAMS EX BID for 10 Days, #120 GRAMS 0 Refills Prov:RATNA BECKER GEOCHEMIST 01/14/24 Metformin Hydrochloride (METFORMIN HCL ER) 500 Mg Tab, 1 TAB PO DAILY for 30 Days, #30 TAB 2 Refills Prov:STEFANIE CHAVEZ RESIDENT 07/16/23 Ondansetron Odt 4MG Tab (ZOFRAN PO) 4 Mg Tb, 4 MG PO Q8HP PRN for 5 Days, #15 TAB ODT TAB-DISSOLVE IN MOUTH, THEN SWALLOW Prov:EDELMIRA ELENA MD 06/11/23 Current Medications Current Medications Medications (Trade) Dose Ordered Sig/Shubham Route PRN Reason Start Time Stop Time Status Last Admin Acetaminophen/ Hydrocodone Bitart ([place] 5/325MG Tab) 1 tab Q4HP PRN PO MODERATE PAIN (4-6 PAIN SCALE) 07/13/24 14:45 Ondansetron HCl (Zofran) 4 mg Q4HP PRN IV NAUSEA / VOMITING 07/13/24 14:45 Docusate Sodium (Colace Capsule) 100 mg BIDPRN PRN PO FOR CONSTIPATION 07/13/24 14:45 Acetaminophen (Tylenol Tablet) 650 mg Q6HP PRN PO PAIN SCALE 1-3 OR TEMP>100.4 07/13/24 14:45 Nitroglycerin (Ntrostat Sublingual) 0.4 mg Q5MINP PRN SL FOR CHEST PAIN 07/13/24 14:45 Morphine Sulfate 2 mg Q30M PRN IV FOR CHEST PAIN 07/13/24 14:45 Tamsulosin HCl (Flomax) 0.4 mg DAILY PO 07/14/24 10:00 Patient Own Medication 1 tab DAILY PO 07/14/24 10:00 UNV Diagnostic Test (Pha) (Accu-Chek Comfort Curve T) 1 strip ACHS 07/13/24 17:00 07/13/24 17:50 Insulin Human Regular (InsuLIN R) HS SC 07/13/24 22:00 Insulin Human Regular (InsuLIN R) AC SC 07/13/24 17:00 Dextrose 50 ml UD PRN IV Blood Sugar LESS THAN 60 07/13/24 14:45 Lisinopril (Zestril Tablet) 20 mg DAILY PO 07/14/24 10:00 Hydrochlorothiazide (hydroCHLOROthiazide TABLET) 25 mg DAILY PO 07/14/24 10:00 Review of Systems As above, the other systems are negative Vital Signs Vital Signs Date Time Temp Pulse Resp B/P (MAP) Pulse Ox O2 Delivery O2 Flow Rate FiO2 07/13/24 14:34 51 16 91/60 (70) 97 07/13/24 14:01 Room Air* 0 21 07/13/24 14:01 98.2 98.2 Physical Exam GENERAL EXAM: General: the patient is well developed and nourished. No acute distress. HEENT: Normocephalic, neck is supple, no carotid bruits. No mass. RESPIRATORY: Normal respiratory effort with symmetrical lung expansion. Lungs clear to auscultation. CARDIOVASCULAR: Regular rate and rhythm with no murmurs. S1, S2. ABDOMEN: Soft, nontender, normal bowel sound NEUROLOGICAL: MENTAL STATUS: Awake and alert. Oriented to person, place, time and general circumstances. SPEECH, LANGUAGE, HIGHER CORTICAL FUNCTION: no aphasia or dysathria. CRANIAL NERVES: #2: Intact visual duncan to confrontation. The optic discs were sharp. #3,4,6: Pupils are equal, round and reactive. EOMs full and conjugate. No nystagmus. #5: Facial sensation intact in all three divisions bilaterally. Mandibular strength intact. #7: Facial muscles symmetrical and strength intact. #8: Hearing grossly normal to voice. Tympanic membranes are intact #9,10: Uvula and soft palate rise in the midline. Swallow and voice are normal. #11: Trapezius and sternomastoid strength intact bilaterally. #12: Tongue midline. No fasciculations or atrophy. SENSATION: Sensation to touch and pinprick is normal. MOTOR: Normal tone in the upper and lower extremity. Normal muscle bulk. No fasciculations. No abnormal movements or posturing. Muscle strength of the major groups in the upper extremities is 5/5. Muscle strength of the major groups in the lower extremities is 5/5. REFLEXES: Deep tendon reflexes normal and symmetrical. No pathological reflexes. CEREBELLAR/COORDINATION: Finger to nose is normal bilaterally. GAIT/STATION: deferred. Labs/Diagnostic Data Labs Test 07/13/24 17:46 07/13/24 16:58 07/13/24 14:00 4/15/25 11:09 Range/Units POC Glucose 121 H 70-106 mg/dl Urine Color Light-yellow Yellow Urine Clarity Clear Clear Urine pH 5.5 5.0-9.0 Urine Specific [place] 1.016 1.001-1.035 Urine Protein Trace H Negative Urine Ketones Trace Negative Urine Blood Negative Negative /uL Urine Nitrite Negative Negative Urine Bilirubin Negative Negative Urine Urobilinogen Normal Negative mg/dL Urine Leukocyte Esterase Negative Negative /uL Urine RBC 1 0 - 3 /hpf Urine Microscopic WBC < 1 0-3 /HPF Urine Squamous Epithelial Cells Few <5 /hpf Urine Bacteria None seen None Seen /hpf Urine Hyaline Casts Few 0 - 2 /lpf Urine Mucus Few None Seen Urine Glucose Normal Normal mg/dL SARS-CoV-2 Antigen (Rapid) Negative NEGATIVE White Blood Count 8.1 4.4-10.8 10^3/uL Red Blood Count 5.53 4.5-5.90 10^6/uL Hemoglobin 17.2 13.5-17.5 g/dL Hematocrit 50.0 41.0-53.0 % Mean Corpuscular Volume 90.5 80.0-100.0 fL Mean Corpuscular Hemoglobin 31.1 28.0-32.0 pg Mean Corpuscular Hemoglobin Concent 34.4 32.0-36.0 g/dL Red Cell Distribution Width 13.6 11.8-14.3 % Platelet Count 232 140-450 10^3/uL Mean Platelet Volume 7.8 6.9-10.8 fL Neutrophils (%) (Auto) 63.1 37.0-80.0 % Lymphocytes (%) (Auto) 24.5 10.0-50.0 % Monocytes (%) (Auto) 9.2 0.0-12.0 % Eosinophils (%) (Auto) 2.2 0.0-7.0 % Basophils (%) (Auto) 1.0 0.0-2.0 % Neutrophils # (Auto) 5.1 1.6-8.6 10 ^3/uL Lymphocytes # (Auto) 2.0 0.4-5.4 10 ^3/uL Monocytes # (Auto) 0.7 0-1.3 10 ^3/uL Eosinophils # (Auto) 0.2 0-0.8 10 ^3/uL Basophils # (Auto) 0.1 0-0.2 10 ^3/uL Nucleated Red Blood Cells 0.1 % D-Dimer, Quantitative 0.30 0.0-0.49 mg/L FEU Sodium Level 142 136-145 mmol/L Potassium Level 3.4 L 3.5-5.1 mmol/L Chloride Level 103 98-107 mmol/L Carbon Dioxide Level 30 20-31 mmol/L Anion Gap 9 5-15 Blood Urea Nitrogen 21 9-23 mg/dL Creatinine 1.11 0.700-1.30 mg/dL Glomerular Filtration Rate Calc 76 >90 mL/min BUN/Creatinine Ratio 18.9 10.0-20.0 Serum Glucose 124 H 74-106 mg/dL Calcium Level 10.4 8.7-10.4 mg/dL Assessment Vertigo Benign paroxysmal positional vertigo Rule out acute intracranial pathology, including cerebellum pathology Plan/Recommendation Monitoring Supportive treatment Telemetry MRI brain Echocardiogram Carotid Doppler Up to chair Physical therapy More recommendation per clinical course This medical document was created using an electronic medical record system with [employer] dictation system. Although this document has been carefully reviewed, there may still be some phonetic and typographical errors. These areas are purely typographical due to imperfections of the software programs, and do not reflect any compromise in the patient's medical care. Plan discussed with: Patient VAISHALI MEJIA MD Jul 13, 2024 23:30
[2024-07-14] VITALS (8 sets, daily range): BP systolic 112–144; BP diastolic 56–76; PULSE 54–82; RESP 17–18; TEMP 97.6–98.5; O2SAT 94–96
[2024-07-14] MEDS: ACETAMINOPHEN 325 MG TAB PO PRN (04:48)
[2024-07-14 07:40] LABS: Basophils # (auto) 0 10 ^3/uL (0-0.2); Basophils % (auto) 0.6 % (0.0-2.0); Eosinophils # (auto) 0.2 10 ^3/uL (0-0.8); Eosinophils % (auto) 2.7 % (0.0-7.0); Hematocrit 45.9 % (41.0-53.0); Hemoglobin 16.6 g/dL (13.5-17.5); Lymphocytes # (auto) 1.9 10 ^3/uL (0.4-5.4); Mean Corpuscular Hemoglobin 32.5 pg (28.0-32.0); Mean Corpuscular Hgb Conc. 36.1 g/dL (32.0-36.0); Monocytes # (auto) 0.8 10 ^3/uL (0-1.3); Monocytes % (auto) 8.9 % (0.0-12.0); Neutrophils % (auto) 66.8 % (37.0-80.0); Nucleated Red Blood Cells % 0.1 %; Platelet Count (auto) 206 10^3/uL (140-450); Red Cell Distribution Width 13.5 % (11.8-14.3)
[2024-07-14 07:55] LABS: Albumin 4.5 g/dL (3.2-4.8); Alkaline Phosphatase 61 U/L (46-116); Anion Gap 8 (5-15); Aspartate Aminotransferase 21 U/L (13-40); BUN/Creatinine Ratio 20.6 (10.0-20.0); Blood Urea Nitrogen 20 mg/dL (9-23); Calcium 9.9 mg/dL (8.7-10.4); Carbon Dioxide 27 mmol/L (20-31); Chloride 106 mmol/L (98-107); Potassium 3.6 mmol/L (3.5-5.1); Sodium 141 mmol/L (136-145); Total Protein 6.5 g/dL (5.7-8.2)
[2024-07-14 07:57] LABS: Alanine Aminotransferase 42 U/L (7-40); Bilirubin, Total 1.3 mg/dL (0.2-1.0); Glucose 140 mg/dL (74-106)
[2024-07-14] MEDS: TAMSULOSIN HYDROCHLORIDE 0.4 MG CAP PO SCH (09:13)
[2024-07-14] MEDS: LISINOPRIL 20 MG TAB PO SCH (09:14)
[2024-07-14] MEDS: hydroCHLOROthiazide 25 MG TAB PO SCH (09:14)
[2024-07-14] MEDS ORDERED: PATIENTS OWN MEDICATION (Lisinopril & Hydrochlorothiazi (Zestoretic 20-25 mg) 1 TAB) PO SCH (10:00)
--- NOTE | 2024-07-14 14:59 | DVHPN2 ---
Subjective Patient continues to report having some dizziness. Reviewed: Care Plan, H&P, Labs, Medications Changes from previous H/P or p: No Changes General: Per HPI Eyes: No Pain, No Vision change, No Conjunctivae inflammation, No Eyelid inflammation, No Other, No Redness ENT: No Ear pain, No Ear discharge, No Nose pain, No Nose discharge, No Nose congestion, No Mouth pain, No Mouth swelling, No Throat pain, No Throat swelling, No Other Cardiovascular: No Chest Pain, No Palpitations, No Orthopnea, No Paroxysmal Noc. Dyspnea, No Edema, No Lt Headedness, No Other Respiratory: No Cough, No Dry, No Shortness of breath, No SOB with excertion, No Wheezing, No Hemoptysis, No Pleuritic Pain, No Sputum, No Other Gastrointestinal: No Nausea, No Vomiting, No Abdominal Pain; Diarrhea; No Constipation, No Melena, No Hematochezia, No Other Genitourinary: No Dysuria, No Frequency, No Incontinence, No Hematuria, No Retention, No Other Musculoskeletal: No other, No neck pain, No shoulder pain, No arm pain, No back pain, No hand pain, No leg pain, No foot pain Skin: No Rash, No Lesions, No Jaundice, No Bruising, No Other Objective Vitals Vital Signs Date Time Temp Pulse Resp B/P (MAP) Pulse Ox O2 Delivery O2 Flow Rate FiO2 07/14/24 12:10 98.0 61 18 118/72 (87) 95 98.0 07/14/24 08:00 Room Air* 0 21 Intake/Output Intake and Output 07/14/24 07:00 Intake Total 1000 ml Balance 1000 ml Intake Oral 0 ml IV Total 1000 ml General Appearance: Alert, Oriented X3, Cooperative, No acute distress HEENT: Atraumatic, PERRLA Lungs: Clear to auscultation, Normal air movement Cardiovascular: Normal S1, Normal S2 Abdomen: Normal bowel sounds, Soft, No tenderness, No hepatospenomegaly, No masses Rectal: Normal inspection Musculoskeletal: Normal sensory function, Normal motor function Neuro: Normal speech Skin: Dry, Intact Psych/Mental Status: Mental status NL Medications Current Medications Medications Dose Ordered Sig/Shubham Route Start Time Stop Time Status Last Admin Dose Admin Acetaminophen/ Hydrocodone Bitart 1 tab Q4HP PRN PO 07/13/24 14:45 Ondansetron HCl 4 mg Q4HP PRN IV 07/13/24 14:45 Docusate Sodium 100 mg BIDPRN PRN PO 07/13/24 14:45 Acetaminophen 650 mg Q6HP PRN PO 07/13/24 14:45 07/14/24 04:48 650 MG Nitroglycerin 0.4 mg Q5MINP PRN SL 07/13/24 14:45 Morphine Sulfate 2 mg Q30M PRN IV 07/13/24 14:45 Tamsulosin HCl 0.4 mg DAILY PO 07/14/24 10:00 07/14/24 09:13 0.4 MG Patient Own Medication 1 tab DAILY PO 07/14/24 10:00 UNV Diagnostic Test (Pha) 1 strip ACHS 07/13/24 17:00 07/14/24 11:35 1 STRIP Insulin Human Regular HS SC 07/13/24 22:00 Insulin Human Regular AC SC 07/13/24 17:00 07/14/24 11:37 3 UNITS Dextrose 50 ml UD PRN IV 07/13/24 14:45 Lisinopril 20 mg DAILY PO 07/14/24 10:00 07/14/24 09:14 20 MG Hydrochlorothiazide 25 mg DAILY PO 07/14/24 10:00 07/14/24 09:14 25 MG Laboratory Results Laboratory Tests 07/14/24 07:05 Chemistry Test 07/14/24 07:05 Albumin 4.5 g/dL (3.2-4.8) Calcium Level 9.9 mg/dL (8.7-10.4) Total Protein 6.5 g/dL (5.7-8.2) LFT Test 07/14/24 07:05 Alanine Aminotransferase (ALT) 42 U/L (7-40) H Alkaline Phosphatase 61 U/L (46-116) Aspartate Amino Transferase (AST) 21 U/L (13-40) Total Bilirubin 1.3 mg/dL (0.2-1.0) H Urinalysis Test 07/13/24 16:58 Urine Color Light-yellow (Yellow) Urine Clarity Clear (Clear) Urine pH 5.5 (5.0-9.0) Urine Specific [place] 1.016 (1.001-1.035) Urine Protein Trace (Negative) H Urine Ketones Trace (Negative) Urine Blood Negative /uL (Negative) Urine Nitrite Negative (Negative) Urine Bilirubin Negative (Negative) Urine Urobilinogen Normal mg/dL (Negative) Urine Leukocyte Esterase Negative /uL (Negative) Urine RBC 1 /hpf (0 - 3) Urine Microscopic WBC < 1 /HPF (0-3) Urine Squamous Epithelial Cells Few /hpf (<5) Urine Bacteria None seen /hpf (None Seen) Urine Hyaline Casts Few /lpf (0 - 2) Urine Mucus Few (None Seen) Urine Glucose Normal mg/dL (Normal) Labs and/or images reviewed: Labs reviewed by me, Image(s) reviewed by me Assessment/Plan Assessment/Plan Impression: -? BPPV -orthostatic hypotension -recent diarrhea -primary hypertension -diabetes mellitus -BPH Plan: -orthostatic blood pressures -stop antihypertensives -neurology consultation: Recommendations reviewed -MRI of the brain pending -chest x-ray -check A1c -regular insulin sliding scale -start IV hydration Total time spent with patient discussing and formulating plan of care: 35 minutes. This medical document was created using an electronic medical record system with [employer] dictation system. Although this document has been carefully reviewed, there may still be some phonetic and typographical errors. These areas are purely typographical due to imperfections of the software programs, and do not reflect any compromise in the patient's medical care. Plan discussed with: Patient, Other (RN) My Orders Orders - JADE JORGE NP Procedure Category Date Status Time NS PHA 07/14/24 Verified 15:00 Meclizine Tablet PHA 07/14/24 Verified (Antivert Tablet) 15:00 Hemoglobin A1c LAB 07/14/24 Verified 14:51 C-Reactive Protein LAB 07/14/24 Verified 14:51 Erythrocyte LAB 07/14/24 Verified Sedimentation Rate 14:51 Date of Service: Jul 14, 2024 Billing Provider: JADE JORGE NP Common Visit Codes: [id number] INP/OBS CARE(HIGH) JADE JORGE NP Jul 14, 2024 14:59
--- NOTE | 2024-07-14 15:53 | DVH ---
CHEST RADIOGRAPH Indication: shortness of breath Technique: Single frontal view of the chest was obtained Comparison: None FINDINGS: Lines and Tubes: None Lungs: No focal consolidation. Pleura: No effusion. No pneumothorax. Cardiomediastinal contours: Unremarkable Bones: No acute osseous abnormality. IMPRESSION: No acute cardiopulmonary disease.
[2024-07-14 16:06] LABS: Erythrocyte Sedimentation Rate 2 mm/hr (0-20)
[2024-07-14] MEDS: SODIUM CHLORIDE 0.9% 1,000 ML IV SCH (17:09)
--- NOTE | 2024-07-14 19:21 | DVH ---
PROCEDURE: MRI BRAIN HEAD WO CONTRAST INDICATION: Persistent dizziness, headache, vertigo EXAM DATE: 07/14/2024 04:24 PM COMPARISON: None TECHNIQUE: MRI of the brain without intravenous contrast. FINDINGS: Diffusion weighted images of the brain demonstrate no evidence of acute infarct. No evidence of intracranial hemorrhage, extra-axial collection, mass effect, midline shift, herniati on or hydrocephalus. Ventricles, sulci and cisterns are age appropriate. Signal intensities of the brain parenchyma are within normal limits. No signal abnormality noted on susceptibility weighted sequences. Visualized paranasal sinuses and mastoid air cells are clear. Soft tissues and osseous structures are unremarkable. IMPRESSION: No intracranial abnormality identified.
--- NOTE | 2024-07-14 21:21 | DVHPN2 ---
Progress Note - Dictate Date Seen: Jul 14, 2024 Medical Necessity Reason Pt with a Central, PICC or Fol: No Subjective Mr. Garibay is a 59 years old right-handed gentleman with a history of hypertension, diabetes, BPH, he came to the [facility] on 07/13/2024 with a chief company of dizziness, headache. I have seen and examined the patient, I have discussed with himself and his nurse, he is doing fine but had dizzy spells of dizzy spells today He was not read about the BPPV (in his smartphone) No new complaints Urinalysis, 07/13/2024: WBC: 1, urine leukocyte esterase: negative CBC, 07/13/2024: Unremarkable BMP, 07/13/2024: Unremarkable Vitamin B12, 06/2023: 970 Folic acid, 06/2023: 10.32 CT head, : No CT evidence of acute intracranial abnormality MRI head, 07/14/2024: No intracranial abnormality identified. vital signs Vital Sign Date Time Temp Pulse Resp B/P (MAP) Pulse Ox O2 Delivery O2 Flow Rate FiO2 07/14/24 21:00 98.1 81 18 112/72 (85) 95 98.1 07/14/24 08:00 Room Air* 0 21 Total Intake and Output 07/13/24 07/13/24 07/14/24 15:00 23:00 07:00 Intake Total 1000 ml 0 ml Balance 1000 ml 0 ml medications Current Medications Medications Dose Ordered Sig/Shubham Route Start Time Stop Time Status Last Admin Dose Admin Acetaminophen/ Hydrocodone Bitart 1 tab Q4HP PRN PO 07/13/24 14:45 Ondansetron HCl 4 mg Q4HP PRN IV 07/13/24 14:45 Docusate Sodium 100 mg BIDPRN PRN PO 07/13/24 14:45 Acetaminophen 650 mg Q6HP PRN PO 07/13/24 14:45 07/14/24 04:48 650 MG Nitroglycerin 0.4 mg Q5MINP PRN SL 07/13/24 14:45 Morphine Sulfate 2 mg Q30M PRN IV 07/13/24 14:45 Tamsulosin HCl 0.4 mg DAILY PO 07/14/24 10:00 07/14/24 09:13 0.4 MG Patient Own Medication 1 tab DAILY PO 07/14/24 10:00 UNV Diagnostic Test (Pha) 1 strip ACHS 07/13/24 17:00 07/14/24 17:09 1 STRIP Insulin Human Regular HS SC 07/13/24 22:00 Insulin Human Regular AC SC 07/13/24 17:00 07/14/24 17:14 2 UNITS Dextrose 50 ml UD PRN IV 07/13/24 14:45 Sodium Chloride 1,000 ml @ 100 mls/hr Q10H IV 07/14/24 15:00 07/14/24 17:09 100 MLS/HR Meclizine HCl 25 mg Q8HPRN PRN PO 07/14/24 15:00 objective General: the patient is well developed and nourished. No acute distress. MENTAL STATUS: Awake and alert. Oriented to person, place, time and general circumstances. SPEECH, LANGUAGE, HIGHER CORTICAL FUNCTION: no aphasia or dysathria. CRANIAL NERVES: Pupils are equal, round and reactive. EOMs full and conjugate. No nystagmus. Facial sensation intact in all three divisions bilaterally. Mandibular strength intact. Facial muscles symmetrical and strength intact. . SENSATION: Sensation to touch and pinprick is normal. MOTOR: Normal tone in the upper and lower extremity. Normal muscle bulk. No fasciculations. No abnormal movements or posturing. Muscle strength of the major groups in the upper extremities is 5/5. Muscle strength of the major groups in the lower extremities is 5/5. REFLEXES: Deep tendon reflexes normal and symmetrical. No pathological reflexes. CEREBELLAR/COORDINATION: Finger to nose is normal bilaterally. GAIT/STATION: deferred. laboratory and microbiology Laboratory Tests 07/14/24 07:05 Test 07/14/24 07:05 Range/Units Serum Glucose 140 H 74-106 mg/dL Problem List Vertigo Benign paroxysmal positional vertigo Assessment/Plan Monitoring Supportive treatment Telemetry Up to chair Physical therapy More recommendation per clinical course Okay to discharge in the morning from neurologic point of view This medical document was created using an electronic medical record system with [employer] system. Although this document has been carefully reviewed, there may still be some phonetic and typographical errors. These areas are purely typographical due to imperfections of the software programs, and do not reflect any compromise in the patient's medical care. Prognosis fair Plan discussed with: Patient, Other VAISHALI MEJIA MD Jul 14, 2024 21:21
[2024-07-15] VITALS (7 sets, daily range): BP systolic 106–119; BP diastolic 62–82; PULSE 58–86; RESP 17–18; TEMP 97.9–98.1; O2SAT 94–97
--- NOTE | 2024-07-15 13:58 | DVHDS2 ---
Discharge Summary Date of Admission Jul 13, 2024 at 14:32 Date of Discharge: Jul 15, 2024 Admitting Diagnosis Autonomic dysfunction Labs/Diagnostic Data: Laboratory Results Test 07/15/24 11:25 07/14/24 07:05 07/13/24 16:58 07/13/24 14:00 POC Glucose 151 mg/dl (70-106) White Blood Count 9.0 10^3/uL (4.4-10.8) Red Blood Count 5.10 10^6/uL (4.5-5.90) Hemoglobin 16.6 g/dL (13.5-17.5) Hematocrit 45.9 % (41.0-53.0) Mean Corpuscular Volume 90.0 fL (80.0-100.0) Mean Corpuscular Hemoglobin 32.5 pg (28.0-32.0) Mean Corpuscular Hemoglobin Concent 36.1 g/dL (32.0-36.0) Red Cell Distribution Width 13.5 % (11.8-14.3) Platelet Count 206 10^3/uL (140-450) Mean Platelet Volume 7.8 fL (6.9-10.8) Neutrophils (%) (Auto) 66.8 % (37.0-80.0) Lymphocytes (%) (Auto) 21.0 % (10.0-50.0) Monocytes (%) (Auto) 8.9 % (0.0-12.0) Eosinophils (%) (Auto) 2.7 % (0.0-7.0) Basophils (%) (Auto) 0.6 % (0.0-2.0) Neutrophils # (Auto) 6.0 10 ^3/uL (1.6-8.6) Lymphocytes # (Auto) 1.9 10 ^3/uL (0.4-5.4) Monocytes # (Auto) 0.8 10 ^3/uL (0-1.3) Eosinophils # (Auto) 0.2 10 ^3/uL (0-0.8) Basophils # (Auto) 0 10 ^3/uL (0-0.2) Nucleated Red Blood Cells 0.1 % Erythrocyte Sedimentation Rate 2 mm/hr (0-20) Sodium Level 141 mmol/L (136-145) Potassium Level 3.6 mmol/L (3.5-5.1) Chloride Level 106 mmol/L (98-107) Carbon Dioxide Level 27 mmol/L (20-31) Anion Gap 8 (5-15) Blood Urea Nitrogen 20 mg/dL (9-23) Creatinine 0.97 mg/dL (0.700-1.30) Glomerular Filtration Rate Calc 89 mL/min (>90) BUN/Creatinine Ratio 20.6 (10.0-20.0) Serum Glucose 140 mg/dL (74-106) Hemoglobin A1c 6.6 % A1C (<5.7) Calcium Level 9.9 mg/dL (8.7-10.4) Total Bilirubin 1.3 mg/dL (0.2-1.0) Aspartate Amino Transferase (AST) 21 U/L (13-40) Alanine Aminotransferase (ALT) 42 U/L (7-40) Alkaline Phosphatase 61 U/L (46-116) C-Reactive Protein High Sensitivity 0.36 mg/dL (<1.0) Total Protein 6.5 g/dL (5.7-8.2) Albumin 4.5 g/dL (3.2-4.8) Urine Color Light-yellow (Yellow) Urine Clarity Clear (Clear) Urine pH 5.5 (5.0-9.0) Urine Specific [place] 1.016 (1.001-1.035) Urine Protein Trace (Negative) Urine Ketones Trace (Negative) Urine Blood Negative /uL (Negative) Urine Nitrite Negative (Negative) Urine Bilirubin Negative (Negative) Urine Urobilinogen Normal mg/dL (Negative) Urine Leukocyte Esterase Negative /uL (Negative) Urine RBC 1 /hpf (0 - 3) Urine Microscopic WBC < 1 /HPF (0-3) Urine Squamous Epithelial Cells Few /hpf (<5) Urine Bacteria None seen /hpf (None Seen) Urine Hyaline Casts Few /lpf (0 - 2) Urine Mucus Few (None Seen) Urine Glucose Normal mg/dL (Normal) SARS-CoV-2 Antigen (Rapid) Negative (NEGATIVE) Test 07/13/24 11:09 D-Dimer, Quantitative 0.30 mg/L FEU (0.0-0.49) Other Laboratory Tests 07/14/24 07:05 Brief Hx & Hospital Course: History of Present Illness Norman Garibay is a 59-year-old male with past medical history of hypertension, diabetes, and BPH, who came in with complaints of being dizzy. Patient states he has been dizzy and had diarrhea for about 5 days. He took medication for the diarrhea yesterday 3 times and states he had diarrhea twice yesterday morning, but nothing since. He states he has been experiencing nausea and headaches as well. Course of hospitalization: Neurology consultation was placed. Recommendations reviewed including MRI. MRI unremarkable. Patient had orthostatic blood pressures with the patient was found to have noted increase blood pressure while standing. IV hydration was given to the patient. Discussion was made with the patient regarding his blood pressure dropping secondary to his diarrhea and not having appropriate volume replete. Patient was also treated with meclizine. Patient was also educated on BPPV, for which the primary nurse will provide exercises to assist with this possible condition for his vertigo. Patient was continue all previous home medications. All questions answered. Physical examination General: Alert and Oriented x3. No acute distress. Well-nourished. Eyes: EOMI. Anicteric. HENT: Moist mucous membranes. Lungs: Clear to auscultation bilaterally. No accessory muscle use. Cardiovascular: Regular rate and rhythm. No murmur. No JVD. Abdomen: Soft, non-tender and non-distended. No palpable masses. Extremities: No edema. Non-tender. Skin: No rashes or lesions. Warm. Neurologic: No focal neurological deficits. CN II-XII grossly intact, but not individually tested. Psychiatric: Cooperative. Appropriate mood and affect. Total time spent with patient discussing and formulating plan of care: 35 minutes. This medical document was created using an electronic medical record system with [employer] dictation system. Although this document has been carefully reviewed, there may still be some phonetic and typographical errors. These areas are purely typographical due to imperfections of the software programs, and do not reflect any compromise in the patient's medical care. Consults/Reason for consult Neurology: Dizziness, headache Condition at Discharge: Fair Final Diagnosis/Problems List Autonomic dysfunction Severe hypovolemia Secondary diagnosis: -? BPPV -orthostatic hypotension -recent diarrhea -primary hypertension -diabetes mellitus -BPH Discharge Disposition: Home Discharge Instruct/Medications Follow Up/Referral: PCP in 1-2 weeks Medications: Continue all home medications Meclizine 25 mg p.o. q.8 hours as needed for dizziness 36 Discharge Statement: "Patient was advised to return to the ER or call 911 if any headaches, dizziness, shortness of breath, chest pain, abdominal pain, bleeding, fevers, or worsening of medical condition. Patient was counseled about treatment plan, medications, possible side effects, patientverbalized understanding. All questions were answered to the best of my ability. This discharge took greater then 30 minutes in planning, reviewing documentation, counseling the patient, and discussing with other team members." ASSESSMENT ASSESSMENT Assessment Date of Service: Jul 15, 2024 Billing Provider: JADE JORGE NP Common Visit Codes: 29482-BFL/OBS DISCH DAY >30min JADE JORGE NP Jul 15, 2024 13:58
[2024-07-15] MEDS ORDERED: MECL1TAB42 PO (13:59)
[2024-07-15] MEDS: MECLIZINE HCL 25 MG TAB PO PRN (14:02)
== END 2024-07-15 17:20 | disposition home or self-care (01) | DRG 74 ==
LOC: ER 09:33 → OVERFLOW 14:32 → TELE-WESTW 07-14 03:40
PROVIDERS: ADMIT Nurse Practitioner Acute Care; ATTEND Nurse Practitioner Acute Care
DX: G90.89 Other disorders of autonomic nervous system (principal); E86.1 Hypovolemia; I95.1 Orthostatic hypotension; E86.0 Dehydration; E87.6 Hypokalemia; N40.0 Benign prostatic hyperplasia without lower urinary tract symptoms; H81.13 Benign paroxysmal vertigo, bilateral; I10 Essential (primary) hypertension; G89.29 Other chronic pain; Z87.891 Personal history of nicotine dependence; Z81.8 Family history of other mental and behavioral disorders; Z88.0 Allergy status to penicillin; Z79.84 Long term (current) use of oral hypoglycemic drugs; Z83.3 Family history of diabetes mellitus
CPT/HCPCS: 36415; 70450; 70551; 71045; 80048; 80053; 81001; 82962; 83036; 85025; 85379; 85652; 86141; 87426; 93005; 99291; G0378; J1815

== ENCOUNTER 2024-07-18 15:56 | Emergency (ER) | payer OTHER ==
[~2024-07-18] VITALS: Ht 185.4 cm; Wt 88.3 kg
[~2024-07-18 15:56] MED LIST changes: +MECL1TAB42 PO; -METF-489 PO; -TRIO1TP EX; -ZOFR4T PO; +[UNRECOGNIZED DRUG - CODE] PO
--- NOTE | 2024-07-18 16:09 | ECG ---
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
--- NOTE | 2024-07-18 16:15 | ED.PDOC ---
HPI (NEURO) HPI Comments 59y M who presents to the ED for chief complaint of dizziness. Pt states he was discharged on 07/15/24 after coming to [facility] on 07/13 for dizziness and the following day 07/16, he started to have dizziness with associated shortness of breath that had worsened so he came to the ED for further evaluation. Pt now in the ED, otherwise is alert and oriented x 4 and able to answer all questions. Pt now in the ED, otherwise denies any other symptoms. Time Seen by MD: 16:11 Primary Care Provider: unknown Reviewed Notes: Medications, Allergies Information Source: Patient Mode of Arrival: Ambulatory Brought in by: self Severity: Moderate Dizziness/Weakness Severity: Does not affect activitie Headache Severity: None Timing: Days Duration: Since onset Prehospital treatment: None Onset: At rest Circumstances: Spontaneous Symptoms: Other (shortness of breath) History of: DM, Hypertension Modifying factors: Nothing Associated Signs and Symptoms: None Past Medical History PAST MEDICAL HISTORY: DM, HTN Surgical History: Tonsillectomy Family History Family History: Reviewed,noncontributory to illness, No family hx of Cancer, No family hx of Heart vamsi, No family hx of HTN, No family hx ofKidney vamsi, No family hx of Liver vamsi, No family hx of Lung vamsi, No family hx of Stroke, Family hx of DM Social History Smoker: Non-Smoker Alcohol: Denies ETOH Use Drugs: Other Lives In: Home Constitutional: denies: chills, diaphoresis, fatigue, fever, malaise, sweats, weakness, others EENTM: denies: blurred vision, double vision, ear bleeding, ear discharge, ear drainage, ear pain, ear ringing, eye pain, eye redness, hearing loss, mouth pain, mouth swelling, nasal discharge, nose bleeding, nose congestion, nose pain, photophobia, tearing, throat pain, throat swelling, voice changes, others Respiratory: reports: shortness of breath; denies: cough, hemoptysis, orthopnea, SOB at rest, SOB with excertion, stridor, wheezing, others Cardiovascular: denies: chest pain, dizzy spells, diaphoresis, Dyspnea on exertion, edema, irregular heart beat, left arm pain, lightheadedness, palpitations, PND, syncope, others Gastrointestinal: denies: abdomen distended, abdominal pain, blood streaked bowels, constipated, diarrhea, dysphagia, difficulty swallowing, hematemesis, melena, nausea, poor appetite, poor fluid intake, rectal bleeding, rectal pain, vomiting, others Genitourinary: denies: burning, dysuria, flank pain, frequency, hematuria, incontinence, penile discharge, penile sore, pain, testicle pain, testicle swelling, urgency, others Neurological: reports: dizziness; denies: fainting, headache, left sided numbness, left sided weakness, numbness, paresthesia, pre-existing deficit, right sided numbness, right sided weakness, seizure, speech problems, tingling, tremors, weakness, others Musculoskeletal: denies: back pain, gout, joint pain, joint swelling, muscle pain, muscle stiffness, neck pain, others Integumetry: denies: bruises, change in color, change in hair/nails, dryness, laceration, lesions, lumps, rash, wounds, others Allergic/Immunocompromised: denies: Difficulty Healing, Frequent Infections, Hives, Itching, others Hematologic/Lymphatic: denies: anemia, blood clots, easy bleeding, easy bruising, swollen glands, others Endocrine: denies: excessive hunger, excessive sweating, excessive thirst, excessive urination, flushing, intolerance to cold, intolerance to heat, unexplained weight gain, unexplained weight loss, others Psychiatric: denies: anxiety, bipolar disorder, depression, hopeless, panic disorder, schizophrenia, sleepless, suicidal, others All Other Systems: Reviewed and Negative Physical Exam General Appearance: No Apparent Distress HEENT: Normal ENT Inspection, Pharynx Normal, TMs Normal Neck: Full Range of Motion, Non-Tender, Normal, Normal Inspection Respiratory: Chest Non-Tender, Lungs Clear, No Accessory Muscle Use, No Respiratory Distress, Normal Breath Sounds Cardiovascular: No Edema, No JVD, No Murmur, No Gallop, Normal Peripheral Pulses, Regular Rate/Rhythm Breast Exam: Deferred Gastrointestinal: No Organomegaly, Non Tender, No Pulsatile Mass, Normal Bowel Sounds, Soft Genitalia: Deferred Pelvic: Deferred Rectal: Deferred Extremities: No calf tenderness, Normal capillary refill, Normal inspection, Normal range of motion, Non-tender, No pedal edema Musculoskeletal : Apperance: Normal 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 Was a procedure done?: No Differential Diagnosis (SZ) Seizure: N/A General Weakness: Anemia, Dehydration, Electrolyte imbalance, Encephalopathy, Hypoglycemia, Hypotension, Vertigo: central, Vertigo: peripheral, Vestibular neuronitis Headache: Cluster, Closed Head Injury, Sinusitis X-Ray, Labs, Meds, VS Vital Signs Date Time Temp Pulse Resp B/P (MAP) Pulse Ox O2 Delivery O2 Flow Rate FiO2 07/18/24 16:15 96 07/18/24 16:09 97.1 91 20 121/82 (95) 97 97.1 07/18/24 16:08 96 Lab Test 07/18/24 16:21 Range/Units White Blood Count 9.1 4.4-10.8 10^3/uL Red Blood Count 5.43 4.5-5.90 10^6/uL Hemoglobin 17.2 13.5-17.5 g/dL Hematocrit 48.4 41.0-53.0 % Mean Corpuscular Volume 89.1 80.0-100.0 fL Mean Corpuscular Hemoglobin 31.7 28.0-32.0 pg Mean Corpuscular Hemoglobin Concent 35.5 32.0-36.0 g/dL Red Cell Distribution Width 13.5 11.8-14.3 % Platelet Count 244 140-450 10^3/uL Mean Platelet Volume 7.8 6.9-10.8 fL Neutrophils (%) (Auto) 61.1 37.0-80.0 % Lymphocytes (%) (Auto) 26.5 10.0-50.0 % Monocytes (%) (Auto) 8.3 0.0-12.0 % Eosinophils (%) (Auto) 3.5 0.0-7.0 % Basophils (%) (Auto) 0.6 0.0-2.0 % Neutrophils # (Auto) 5.6 1.6-8.6 10 ^3/uL Lymphocytes # (Auto) 2.4 0.4-5.4 10 ^3/uL Monocytes # (Auto) 0.8 0-1.3 10 ^3/uL Eosinophils # (Auto) 0.3 0-0.8 10 ^3/uL Basophils # (Auto) 0.1 0-0.2 10 ^3/uL Nucleated Red Blood Cells 0.0 % Sodium Level 141 136-145 mmol/L Potassium Level 3.9 3.5-5.1 mmol/L Chloride Level 105 98-107 mmol/L Carbon Dioxide Level 27 20-31 mmol/L Anion Gap 9 5-15 Blood Urea Nitrogen 18 9-23 mg/dL Creatinine 1.22 0.700-1.30 mg/dL Glomerular Filtration Rate Calc 68 >90 mL/min BUN/Creatinine Ratio Pending Serum Glucose 131 H 74-106 mg/dL Calcium Level 10.5 H 8.7-10.4 mg/dL CBC and chemistry panel are within normal limits The glucose is 131 The previous MRI was negative The patient was being discharged at this time The patient was diagnosis paroxysmal vertigo Images Reviewed?: Images reviewed and evaluated by me Time of 1ST Reevaluation: 16:40 Reevaluation 1ST: Unchanged Patient Education/Counseling: Diagnosis, Treatment, Prognosis, Need For Follow Up Family Education/Counseling: No Family Present Additional Information -Reviewed patient's previous visit(s): - The following tests were ordered, and results were reviewed by me: cbc, cmp, ekg x1 - Additional information was gathered from interviewing the following independent Historian: patient - I reviewed and agreed with the following test results read by other provider: none - I discussed treatments and results with medical personnel and: patient Comprehensive systems review obtained and negative except for what is stated in the HPI. Departure 1 Departure Time of Disposition: 16:46 Impression: Primary Impression: Benign paroxysmal positional vertigo Qualified Codes: H81.10 - Benign paroxysmal vertigo, unspecified ear Disposition: 01 HOME / SELF CARE / HOMELESS Condition: Fair Discharged With: Self Critical Care Note Critical Care Time?: No Stability Stability form required: No Heart Score Heart Score: Heart Score Response (Comments) Value History N/A 0 EKG N/A 0 Age N/A 0 Risk Factors N/A 0 Troponin N/A 0 Total 0 I personally scribed for EDELMIRA RICHTER MD ([email or web address]) on 07/18/24 at 16:15. Electronically submitted by Delma Velasquez ([facility] [email or web address]). I personally scribed for EDELMIRA RICHTER MD ([email or web address]) on 07/18/24 at 16:15. Electronically submitted by Delma Velasquez ([email or web address]). EDELMIRA RICHTER MD Jul 18, 2024 16:15
[2024-07-18 16:31] LABS: Basophils # (auto) 0.1 10 ^3/uL (0-0.2); Basophils % (auto) 0.6 % (0.0-2.0); Eosinophils # (auto) 0.3 10 ^3/uL (0-0.8); Eosinophils % (auto) 3.5 % (0.0-7.0); Hematocrit 48.4 % (41.0-53.0); Hemoglobin 17.2 g/dL (13.5-17.5); Lymphocytes # (auto) 2.4 10 ^3/uL (0.4-5.4); Lymphocytes % (auto) 26.5 % (10.0-50.0); Mean Corpuscular Hemoglobin 31.7 pg (28.0-32.0); Mean Corpuscular Hgb Conc. 35.5 g/dL (32.0-36.0); Mean Corpuscular Volume 89.1 fL (80.0-100.0); Monocytes # (auto) 0.8 10 ^3/uL (0-1.3); Monocytes % (auto) 8.3 % (0.0-12.0); Neutrophils # (auto) 5.6 10 ^3/uL (1.6-8.6); Neutrophils % (auto) 61.1 % (37.0-80.0); Platelet Count (auto) 244 10^3/uL (140-450); Red Blood Cells 5.43 10^6/uL (4.5-5.90); Red Cell Distribution Width 13.5 % (11.8-14.3); White Blood Cell 9.1 10^3/uL (4.4-10.8)
[2024-07-18 16:37] LABS: Chloride 105 mmol/L (98-107); Potassium 3.9 mmol/L (3.5-5.1); Sodium 141 mmol/L (136-145)
[2024-07-18 16:38] LABS: Anion Gap 9 (5-15); Carbon Dioxide 27 mmol/L (20-31)
[2024-07-18 16:40] LABS: Calcium 10.5 mg/dL (8.7-10.4)
[2024-07-18 16:44] LABS: Glucose 131 mg/dL (74-106)
[2024-07-18 16:56] VITALS: BP 121/82; PULSE 91; RESP 20; TEMP 97.7; O2SAT 97
[2024-07-18 17:01] LABS: BUN/Creatinine Ratio 14.8 (10.0-20.0); Blood Urea Nitrogen 18 mg/dL (9-23)
== END 2024-07-18 17:00 | disposition home or self-care (01) ==
LOC: ER 16:02
DX: H81.10 Benign paroxysmal vertigo, unspecified ear (principal); E11.9 Type 2 diabetes mellitus without complications; I10 Essential (primary) hypertension; Z90.89 Acquired absence of other organs
CPT/HCPCS: 36415; 80048; 85025; 93005

== ENCOUNTER 2024-08-02 12:19 | Inpatient (IN) | payer OTHER ==
[~2024-08-02] VITALS: Ht 182.9 cm; Wt 92.8 kg
--- NOTE | 2024-08-02 12:49 | ECG ---
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
--- NOTE | 2024-08-02 13:02 | ED.PDOC ---
History of Present Illness HPI Comments 59 year old male presents to the ED with a chief complaint of slurred speech onset yesterday (08/01/24). states she noticed patient was experiencing slurred speech since yesterday as well as poor appetite. For the past 3 weeks, patient has been experiencing dizziness, was diagnosed with vertigo, has seen chiropractor and done recommended exercises with no improvement of symptoms. PMHx HTN, DM. Denies nausea, vomiting, diarrhea, headache, chest pain, shortness of breath. No other symptoms or modifying factors present at this time. Chief Complaint: Dizziness Time Seen by MD: 12:42 Primary Care Provider: courtney Morgan Notes: Medications, Allergies Allergies: Coded Allergies: Penicillins (Verified Allergy, Severe, anaphylaxis, 07/13/24) Home Meds Active Scripts Meclizine HCl (Meclizine 25) 25 Mg Tab, 25 MG PO Q8HP PRN, #30 TAB Prov:JADE JORGE LAWN CARE WORKER 07/15/24 Loratadine (Loratadine) 10 Mg Tab, 10 MG PO DAILY for 30 Days, #30 TAB 0 Refills Prov:RATNA BECKER LAWN CARE WORKER 01/14/24 Linagliptin Base (TRADJENTA) 5 Mg Tab, 1 TAB PO DAILY for 30 Days, #30 TAB 2 Refills Prov:STEFANIE CHAVEZ RESIDENT 07/16/23 Reported Medications Metformin Hydrochloride (Glumetza) 1,000 Mg Tab, 1000 MG PO BID 07/13/24 Tamsulosin Hcl (Flomax) 0.4 Mg Cap, 0.4 MG PO DAILY, CAP 07/15/23 Lisinopril & Hydrochlorothiazi (Zestoretic 20-25 mg) 1 Tab Tab, 1 TAB PO DAILY, TAB 07/15/23 Information Source: Patient, Spouse Mode of Arrival: Wheelchair Severity: Moderate Timing: Days Duration: Since onset Prehospital treatment: None Past Medical History PAST MEDICAL HISTORY: DM, HTN Surgical History: Tonsillectomy Family History Family History: Family hx of DM, Family hx of Cancer, Family hx of stroke Social History Smoker: Non-Smoker Alcohol: Denies ETOH Use Drugs: Other Lives In: Home Constitutional: denies: chills, diaphoresis, fatigue, fever, malaise, sweats, weakness, others EENTM: denies: blurred vision, double vision, ear bleeding, ear discharge, ear drainage, ear pain, ear ringing, eye pain, eye redness, hearing loss, mouth pain, mouth swelling, nasal discharge, nose bleeding, nose congestion, nose pain, photophobia, tearing, throat pain, throat swelling, voice changes, others Respiratory: denies: cough, hemoptysis, orthopnea, SOB at rest, shortness of breath, SOB with excertion, stridor, wheezing, others Cardiovascular: denies: chest pain, dizzy spells, diaphoresis, Dyspnea on exertion, edema, irregular heart beat, left arm pain, lightheadedness, palpitations, PND, syncope, others Gastrointestinal: reports: poor appetite; denies: abdomen distended, abdominal pain, blood streaked bowels, constipated, diarrhea, dysphagia, difficulty swallowing, hematemesis, melena, nausea, poor fluid intake, rectal bleeding, rectal pain, vomiting, others Genitourinary: denies: burning, dysuria, flank pain, frequency, hematuria, incontinence, penile discharge, penile sore, pain, testicle pain, testicle swelling, urgency, others Neurological: reports: dizziness, speech problems (slurred); denies: fainting, headache, left sided numbness, left sided weakness, numbness, paresthesia, pre- existing deficit, right sided numbness, right sided weakness, seizure, tingling, tremors, weakness, others Musculoskeletal: denies: back pain, gout, joint pain, joint swelling, muscle pain, muscle stiffness, neck pain, others Integumetry: denies: bruises, change in color, change in hair/nails, dryness, laceration, lesions, lumps, rash, wounds, others Allergic/Immunocompromised: denies: Difficulty Healing, Frequent Infections, Hives, Itching, others Hematologic/Lymphatic: denies: anemia, blood clots, easy bleeding, easy bruising, swollen glands, others Endocrine: denies: excessive hunger, excessive sweating, excessive thirst, excessive urination, flushing, intolerance to cold, intolerance to heat, unexplained weight gain, unexplained weight loss, others Psychiatric: denies: anxiety, bipolar disorder, depression, hopeless, panic disorder, schizophrenia, sleepless, suicidal, others All Other Systems: Reviewed and Negative Physical Exam General Appearance: No Apparent Distress, Normal HEENT: Normal ENT Inspection, Pharynx Normal, TMs Normal Neck: Full Range of Motion, Non-Tender, Normal, Normal Inspection Respiratory: Chest Non-Tender, Lungs Clear, No Accessory Muscle Use, No Respiratory Distress, Normal Breath Sounds Cardiovascular: No Edema, No JVD, No Murmur, No Gallop, Normal Peripheral Pulses, Regular Rate/Rhythm Breast Exam: Deferred Gastrointestinal: No Organomegaly, Non Tender, No Pulsatile Mass, Normal Bowel Sounds, Soft Genitalia: Deferred Pelvic: Deferred Rectal: Deferred Extremities: No calf tenderness, Normal capillary refill, Normal inspection, Normal range of motion, Non-tender, No pedal edema Musculoskeletal : Apperance: Normal Neurologic: Alert, insurance clerk II-XII nml as Tested, No Motor Deficits, Normal Affect, Normal Mood, No Sensory Deficits Cerebellar Function: Normal Reflexes: Normal Skin: Dry, Normal Color, Warm Lymphatic: No Adenopathy Was a procedure done? Was a procedure done?: No Differential Dx Considerations may include: CVA, ACS, viral syndrome, X-Ray, Labs, Meds, VS Vital Signs Date Time Temp Pulse Resp B/P (MAP) Pulse Ox O2 Delivery O2 Flow Rate FiO2 08/02/24 12:48 74 08/02/24 12:42 98.4 70 19 115/83 (94) 96 98.4 Lab Test 08/02/24 13:11 08/02/24 12:35 Range/Units White Blood Count 7.0 4.4-10.8 10^3/uL Red Blood Count 5.43 4.5-5.90 10^6/uL Hemoglobin 16.8 13.5-17.5 g/dL Hematocrit 48.8 41.0-53.0 % Mean Corpuscular Volume 90.0 80.0-100.0 fL Mean Corpuscular Hemoglobin 31.0 28.0-32.0 pg Mean Corpuscular Hemoglobin Concent 34.5 32.0-36.0 g/dL Red Cell Distribution Width 13.7 11.8-14.3 % Platelet Count 231 140-450 10^3/uL Mean Platelet Volume 7.7 6.9-10.8 fL Neutrophils (%) (Auto) 67.1 37.0-80.0 % Lymphocytes (%) (Auto) 19.7 10.0-50.0 % Monocytes (%) (Auto) 9.1 0.0-12.0 % Eosinophils (%) (Auto) 3.8 0.0-7.0 % Basophils (%) (Auto) 0.3 0.0-2.0 % Neutrophils # (Auto) 4.7 1.6-8.6 10 ^3/uL Lymphocytes # (Auto) 1.4 0.4-5.4 10 ^3/uL Monocytes # (Auto) 0.6 0-1.3 10 ^3/uL Eosinophils # (Auto) 0.3 0-0.8 10 ^3/uL Basophils # (Auto) 0 0-0.2 10 ^3/uL Nucleated Red Blood Cells 0.0 % Sodium Level 144 136-145 mmol/L Potassium Level 3.8 3.5-5.1 mmol/L Chloride Level 111 H 98-107 mmol/L Carbon Dioxide Level 24 20-31 mmol/L Anion Gap 9 5-15 Blood Urea Nitrogen 21 9-23 mg/dL Creatinine 0.96 0.700-1.30 mg/dL Glomerular Filtration Rate Calc 90 >90 mL/min BUN/Creatinine Ratio 21.9 H 10.0-20.0 Serum Glucose 159 H 74-106 mg/dL Calcium Level 9.9 8.7-10.4 mg/dL Troponin I High Sensitivity 5 </=54 ng/L POC Glucose 161 H 70-106 mg/dl [place] [id number] Ph: [phone] DIAGNOSTIC IMAGING Diagnostic Imaging Report : [id number] Signed PATIENT: RICHARD TORRES ACCT: [id number] UNIT: [id number] : 1965 LOC: ER ROOM / BED: / AGE / SEX: 59 / M ADM STATUS: REG ER SERVICE 1249 ORDERING PHYSICIAN: HECTOR NASH MD PROCEDURE(s): CXRP - CHEST PORTABLE REASON: slurred speach ORDER NUMBER(s): [id number], ACCESSION NUMBER(s): [id number] CHEST RADIOGRAPH Indication: slurred speach Technique: Single frontal view of the chest was obtained COMPARISON: XY CHEST XRAY 1 VIEW on DOS: 07/14/24 FINDINGS: Lines and Tubes: None Lungs: Clear Pleura: No effusion. No pneumothorax. Cardiomediastinal contours: Unremarkable Bones: Unremarkable IMPRESSION: No acute disease. ATED BY: JOHN MCDONOUGH MD DICTATED DATE/TIME: 08/02/241339 SIGNED BY: JOHN MCDONOUGH MD SIGNED DATE/TIME: 08/02/241339 CC: Time of 1ST Reevaluation: 13:12 Reevaluation 1ST: Unchanged Patient Education/Counseling: Diagnosis, Treatment, Prognosis Family Education/Counseling: Diagnosis, Treatment, Prognosis Additional Information The following tests were ordered, and results were reviewed by me: EKG, BMP, CBC, TROP -x3, UA, XY CHEST, CT HEAD WO CONTRAST Additional Information was gathered from interviewing the following independent historians: I reviewed and agreed with the following test results read by other providers: XY CHEST, CT HEAD WO CONTRAST I discussed treatment and results with medical personnel and: patient, Comprehensive systems review obtained and negative except for what is stated in the HPI. Departure 1 Departure Time of Disposition: 14:00 (Patient with a concern for CVA however patient is out of the window. Labs are benign and CT brain is unremarkable. We will admit patient for further workup) Impression: Primary Impression: Slurred speech Additional Impression: Dizziness Disposition: ADMITTED INPATIENT Admit to: Med Surg Condition: Serious Critical Care Note Critical Care Time?: Yes Critical care comment: Concern for CVA Authorized and Performed by: Hector Nash MD Total critical care time: Approximately 43 minutes Due to a high probability of clinically significant, life threatening deterioration, the patient required my highest level of preparedness to intervene emergently and I personally spent this critical care time directly and personally managing the patient. This critical care time included obtaining a history; examining the patient; pulse oximetry; ordering and review of studies; arranging urgent treatment with development of a management plan; evaluation of patient's response to treatment; frequent reassessment; and, discussions with other providers. This critical care time was performed to assess and manage the high probability of imminent, life-threatening deterioration that could result in multi-organ failure. It was exclusive of separately billable procedures and treating other patients and teaching time. Please see my other sections and the rest of the note for further information on patient assessment and treatment. Stability Stability form required: No I personally scribed for HECTOR NASH MD ([email or web address]) on 08/02/24 at 13:02. Electronically submitted by Arely Sosa ([email or web address]). I personally scribed for HECTOR NASH MD ([email or web address]) on 08/02/24 at 13:16. Electronically submitted by Arely Sosa ([email or web address]). I personally scribed for HECTOR NASH MD ([email or web address]) on 08/02/24 at 13:47. Electronically submitted by Arely Sosa ([email or web address]). HECTOR NASH MD August 02, 2024 13:02
[2024-08-02 13:27] LABS: Basophils # (auto) 0 10 ^3/uL (0-0.2); Basophils % (auto) 0.3 % (0.0-2.0); Eosinophils # (auto) 0.3 10 ^3/uL (0-0.8); Eosinophils % (auto) 3.8 % (0.0-7.0); Hematocrit 48.8 % (41.0-53.0); Hemoglobin 16.8 g/dL (13.5-17.5); Lymphocytes # (auto) 1.4 10 ^3/uL (0.4-5.4); Lymphocytes % (auto) 19.7 % (10.0-50.0); Mean Corpuscular Hgb Conc. 34.5 g/dL (32.0-36.0); Monocytes # (auto) 0.6 10 ^3/uL (0-1.3); Monocytes % (auto) 9.1 % (0.0-12.0); Neutrophils # (auto) 4.7 10 ^3/uL (1.6-8.6); Neutrophils % (auto) 67.1 % (37.0-80.0); Platelet Count (auto) 231 10^3/uL (140-450); Red Blood Cells 5.43 10^6/uL (4.5-5.90); Red Cell Distribution Width 13.7 % (11.8-14.3)
[2024-08-02 13:36] LABS: Potassium 3.8 mmol/L (3.5-5.1); Sodium 144 mmol/L (136-145)
[2024-08-02 13:37] LABS: Anion Gap 9 (5-15); Calcium 9.9 mg/dL (8.7-10.4); Carbon Dioxide 24 mmol/L (20-31); Chloride 111 mmol/L (98-107)
[2024-08-02 13:42] LABS: BUN/Creatinine Ratio 21.9 (10.0-20.0); Blood Urea Nitrogen 21 mg/dL (9-23)
--- NOTE | 2024-08-02 13:42 | DVH ---
CHEST RADIOGRAPH Indication: slurred speach Technique: Single frontal view of the chest was obtained COMPARISON: XY CHEST XRAY 1 VIEW on DOS: 07/14/24 FINDINGS: Lines and Tubes: None Lungs: Clear Pleura: No effusion. No pneumothorax. Cardiomediastinal contours: Unremarkable Bones: Unremarkable IMPRESSION: No acute disease.
[2024-08-02 13:45] LABS: Glucose 159 mg/dL (74-106)
--- NOTE | 2024-08-02 13:53 | DVH ---
EXAM: CT HEAD WITHOUT CONTRAST INDICATION: slurred speach TECHNIQUE: CT of the head without intravenous contrast. Radiation Dose : 1. Head: CT Dose: CTDI volume is 58.75 mGy. Dose-length product is 1040.27 mGy*cm The dose indicators for CT are the volume Computed Tomography (CT) Dose Index (CTDIvol) and the Dose Length Product (DLP), and are measured in units of mGy and mGy-cm, respectively. These indicators are not patient dose, but values generated from the CT scanner acquisition factors. The report includes radiation exposure data for exposures received during this examination. COMPARISON: CT HEAD WITHOUT CONTRAST on DOS: 07/13/24, CT HEAD WITHOUT CONTRAST on DOS: 07/14/23 FINDINGS: There is no evidence of acute intracranial hemorrhage, extra-axial collection, mass effect, midline s hift, herniation or hydrocephalus. The ventricles, sulci and cisterns are age appropriate. The paz-white differentiation is intact. Patchy periventricular and subcortical white matter hypoattenuation is nonspecific but may be related to small vessel ischemic disease. The visualized paranasal sinuses and mastoid air cells are clear. The surrounding soft tissues and osseous structures are unremarkable. IMPRESSION: No acute intracranial abnormality. Radiation optimization: All CT scans at this facility use at least one of these dose optimization kacie hniques: automated exposure control mA and/or kV adjustment per patient size (includes targeted exam s where dose is matched to clinical indication) or iterative reconstruction.
[2024-08-02 17:08] VITALS: PULSE 58; RESP 16; O2SAT 95
[2024-08-02] MEDS ORDERED: ONDANSETRON HCL 4 MG/2 ML VIAL IV PRN (19:00)
[2024-08-02] MEDS ORDERED: DEXTROSE (50%) 50ML SYRG IV PRN (19:00)
[2024-08-02 19:28] LABS: LDL Cholesterol 118 mg/dL (< 100); Triglycerides 158 mg/dL (< 150)
[2024-08-02 19:29] LABS: Cholesterol 163 mg/dL (< 200)
[2024-08-02 19:36] LABS: HDL Cholesterol 30 mg/dL (40-59)
[2024-08-02] MEDS: ACETAMINOPHEN 325 MG TAB PO PRN (20:07)
[2024-08-02 20:15] VITALS: BP 125/77; PULSE 65; RESP 16; TEMP 98; O2SAT 98
[2024-08-02 20:27] VITALS: BP 125/77; PULSE 65; RESP 16; TEMP 98; O2SAT 97
[2024-08-02] MEDS: ACCU-CHEK COMFORT CURVE STRIP VI SCH (21:41)
[2024-08-02] MEDS: InsuLIN REG 1unit/0.01ml Soln (100units/ml) SC SCH (21:47)
[2024-08-02] MEDS: ATORVASTATIN 20 MG TAB PO SCH (21:50)
--- NOTE | 2024-08-02 22:02 | DVHHP2 ---
History of Present Illness Reason for Visit: Generalized weakness r History of Present Illness 59-year-old male presents for evaluation of generalized weakness. Patient reports a history of generalized weakness with associated fatigue, dizziness and questionable slurred speech. Patient reports feeling extremely weak and unable to get out of bed. No unilateral weakness no headache or blurred vision. Patient reports having difficulty formulating words. Past Medical History Hypertension and diabetes mellitus Past Surgical History Tonsillectomy Family History Cancer, diabetes mellitus Smoke: No ALCOHOL: none Drugs: None Lives: with Family Review of Systems Review of Systems Review of systems are currently negative otherwise addressed in HPI. Allergies: Coded Allergies: Penicillins (Verified Allergy, Severe, anaphylaxis, 07/13/24) Medications Current Medications Medications Dose Ordered Sig/Shubham Route Start Time Stop Time Status Last Admin Dose Admin Lisinopril 20 mg DAILY PO 08/03/24 10:00 Hydrochlorothiazide 25 mg DAILY PO 08/03/24 10:00 Diagnostic Test (Pha) 1 strip ACHS 08/02/24 22:00 08/02/24 21:41 1 STRIP Insulin Human Regular ACHS SC 08/02/24 22:00 08/02/24 21:47 4 UNITS Dextrose 50 ml UD PRN IV 08/02/24 19:00 Ondansetron HCl 4 mg Q4HP PRN IV 08/02/24 19:00 Acetaminophen 650 mg Q6HP PRN PO 08/02/24 19:00 08/02/24 20:07 650 MG Aspirin 81 mg DAILY PO 08/03/24 10:00 Atorvastatin Calcium 10 mg HS PO 08/02/24 22:00 Exam Vital Signs Vital Signs Date Time Temp Pulse Resp B/P (MAP) Pulse Ox O2 Delivery O2 Flow Rate FiO2 08/02/24 20:27 65 16 97 Room Air* 0 21 08/02/24 20:27 98.0 125/77 (93) 98.0 Exam Gen: 59-year-old male in no apparent distress. Skin: Warm, dry, normal color and texture, no rash. HEENT: Normocephalic atraumatic, mucous membranes moist and pink. Neck: Cervical and supraclavicular nodes normal without enlargement, trachea is midline, thyroid gland is normal without masses. Pulmonary: Clear to auscultation and percussion bilaterally. Cardiac: Regular rate and rhythm. No murmur Abdomen: Soft, nontender, nondistended, bowel sounds present all 4 quadrants, no guarding, no rigidity, no organomegaly. Extremities: No cyanosis, clubbing, no edema Neuro: Cranial nerves II through XII grossly intact, normal affect and speech, no focal motor deficits. Labs/Xrays ORDERING PHYSICIAN: HECTOR NASH MD PROCEDURE(s): CXRP - CHEST PORTABLE REASON: mitchelurred danielle ORDER NUMBER(s): [id number], ACCESSION NUMBER(s): [id number] CHEST RADIOGRAPH Indication: slurred speach Technique: Single frontal view of the chest was obtained COMPARISON: XY CHEST XRAY 1 VIEW on DOS: 07/14/24 FINDINGS: Lines and Tubes: None Lungs: Clear Pleura: No effusion. No pneumothorax. Cardiomediastinal contours: Unremarkable Bones: Unremarkable IMPRESSION: No acute disease. RING PHYSICIAN: HECTOR NASH MD PROCEDURE(s): HWOCT - HEAD WITHOUT CONTRAST REASON: slurred spealma delia ORDER NUMBER(s): [id number], ACCESSION NUMBER(s): [id number] EXAM: CT HEAD WITHOUT CONTRAST INDICATION: slurred speach TECHNIQUE: CT of the head without intravenous contrast. Radiation Dose : 1. Head: CT Dose: CTDI volume is 58.75 mGy. Dose-length product is 1040.27 mGy*cm The dose indicators for CT are the volume Computed Tomography (CT) Dose Index (CTDIvol) and the Dose Length Product (DLP), and are measured in units of mGy a nd mGy-cm, respectively. These indicators are not patient dose, but values generated from the CT scanner acquisition factors. The report includes radiation exposure data for exposures received during this examination. COMPARISON: CT HEAD WITHOUT CONTRAST on DOS: 07/13/24, CT HEAD WITHOUT CONTRAST on DOS: 07/14/23 FINDINGS: There is no evidence of acute intracranial hemorrhage, extra-axial collection, mass effect, midline shift, herniation or hydrocephalus. The ventricles, sulci and cisterns are age appropriate. The paz-white differentiation is intact. Patchy periventricular and subcortical white matter hypoattenuation is n onspecific but may be related to small vessel ischemic disease. The visualized paranasal sinuses and mastoid air cells are clear. The surrounding soft tissues and osseous structures are unremarkable. IMPRESSION: No acute intracranial abnormality. Radiation optimization: All CT scans at this facility use at least one of these dose optimization techniques: automated exposure control mA and/or kV adjustment per patient size (includes targeted exams where dose is matched to clinical indication) or iterative reconstruction. Labs Test 08/02/24 21:32 08/02/24 16:16 08/02/24 13:11 Range/Units POC Glucose 202 H 70-106 mg/dl Troponin I High Sensitivity 5 </=54 ng/L White Blood Count 7.0 4.4-10.8 10^3/uL Red Blood Count 5.43 4.5-5.90 10^6/uL Hemoglobin 16.8 13.5-17.5 g/dL Hematocrit 48.8 41.0-53.0 % Mean Corpuscular Volume 90.0 80.0-100.0 fL Mean Corpuscular Hemoglobin 31.0 28.0-32.0 pg Mean Corpuscular Hemoglobin Concent 34.5 32.0-36.0 g/dL Red Cell Distribution Width 13.7 11.8-14.3 % Platelet Count 231 140-450 10^3/uL Mean Platelet Volume 7.7 6.9-10.8 fL Neutrophils (%) (Auto) 67.1 37.0-80.0 % Lymphocytes (%) (Auto) 19.7 10.0-50.0 % Monocytes (%) (Auto) 9.1 0.0-12.0 % Eosinophils (%) (Auto) 3.8 0.0-7.0 % Basophils (%) (Auto) 0.3 0.0-2.0 % Neutrophils # (Auto) 4.7 1.6-8.6 10 ^3/uL Lymphocytes # (Auto) 1.4 0.4-5.4 10 ^3/uL Monocytes # (Auto) 0.6 0-1.3 10 ^3/uL Eosinophils # (Auto) 0.3 0-0.8 10 ^3/uL Basophils # (Auto) 0 0-0.2 10 ^3/uL Nucleated Red Blood Cells 0.0 % Sodium Level 144 136-145 mmol/L Potassium Level 3.8 3.5-5.1 mmol/L Chloride Level 111 H 98-107 mmol/L Carbon Dioxide Level 24 20-31 mmol/L Anion Gap 9 5-15 Blood Urea Nitrogen 21 9-23 mg/dL Creatinine 0.96 0.700-1.30 mg/dL Glomerular Filtration Rate Calc 90 >90 mL/min BUN/Creatinine Ratio 21.9 H 10.0-20.0 Serum Glucose 159 H 74-106 mg/dL Calcium Level 9.9 8.7-10.4 mg/dL Triglycerides Level 158 H < 150 mg/dL Cholesterol Level 163 < 200 mg/dL LDL Cholesterol 118 H < 100 mg/dL HDL Cholesterol 30 L 40-59 mg/dL Thyroid Stimulating Hormone (TSH) 1.15 0.55-4.78 uIU/mL Assessment/Plan Assessment/Plan Assessment Rule out CVA Diabetes mellitus Hypertension Plan Admit the patient to [facility] to the hospitalist MRI of the brain pending Resume home medications Continue treatment per orders. Plan discussed with: Patient My Orders Orders - RENU OROSCO Procedure Category Date Status Time Lisinopril Tablet PHA 08/03/24 In Process (Zestril Tablet) 10:00 Hydrochlorothiazide PHA 08/03/24 In Process Tablet (Hydrochlorot 10:00 Brain Head Wo Contrast MRI 08/02/24 Logged 18:48 Glucose Blood PHA 08/02/24 In Process (Accu-Chek Comfort 22:00 Insulin R (Human) PHA 08/02/24 In Process (Insulin R) 22:00 Dextrose 50% Syringe PHA 08/02/24 In Process 19:00 Admit ADMIT 08/02/24 Transmitted 18:48 Ondansetron Hcl PHA 08/02/24 In Process (Zofran) 19:00 Condition: Stable BRIANA 08/02/24 In Process 18:48 Acetaminophen Tablet PHA 08/02/24 In Process (Tylenol Tablet) 19:00 Bedrest With Bathroom BRIANA 08/02/24 In Process Privileg 18:48 Aspirin Tablet PHA 08/03/24 In Process 10:00 Atorvastatin (Lipitor) PHA 08/02/24 In Process 22:00 Mrsa Screen DAX 08/02/24 Logged 21:30 Mrsa Screen DAX 08/02/24 In Process 21:29 Date of Service: August 02, 2024 Billing Provider: RENU OROSCO Common Visit Codes: [id number] INP/OBS CARE (HIGH) RENU OROSCO August 02, 2024 22:02
[2024-08-03 01:00] VITALS: BP 142/94; PULSE 54; RESP 15; TEMP 97.7; O2SAT 96
[2024-08-03 01:19] LABS: Urine Bacteria FEW /hpf (None Seen); Urine Blood Negative /uL (Negative); Urine Clarity Clear (Clear); Urine Color Yellow (Yellow); Urine Mucus FEW (None Seen); Urine Protein, UAD TRACE (Negative); Urine Specific Gravity 1.034 (1.001-1.035); Urine Squamous Epithelial Cell FEW /hpf (<5); Urine Urobilinogen Normal (Negative); Urine WBC 2 /HPF (0-3); Urine pH 5.5 (5.0-9.0)
[2024-08-03 05:08] VITALS: BP 142/86; PULSE 50; RESP 14; TEMP 97.8; O2SAT 96
--- NOTE | 2024-08-03 08:54 | DVH ---
MRI BRAIN HEAD WO CONTRAST INDICATION: r/o cva : 59 old Male r/o cva EXAM DATE: 08/03/2024 08:14 AM COMPARISON: MRI BRAIN HEAD WO CONTRAST on DOS: 07/14/24 PROCEDURE: Using a 1.5 Amie scanner, multisequence multiplanar imaging of the brain was obtained. FINDINGS: The brainshows normal morphology and signal characteristics. No abnormal T2 hyperintensity, diffusion restriction, or susceptibility hypointensity is present. The ventricles are normal in size . The midline structures are intact. The major intracranial flow voids are present. The aerated space s are normal. The orbital contents and extracranial soft tissues appear normal. IMPRESSION: No acute abnormal MRI findings of the brain.
[2024-08-03] MEDS: ASPirin 81 mg TAB PO SCH (09:35)
[2024-08-03] MEDS: LISINOPRIL 20 MG TAB PO SCH (09:36)
[2024-08-03] MEDS: hydroCHLOROthiazide 25 MG TAB PO SCH (09:37)
[2024-08-03 10:55] VITALS: BP 126/72; PULSE 67; RESP 18; TEMP 97.8; O2SAT 97
[2024-08-03 12:30] VITALS: BP 138/74; PULSE 51; RESP 20; TEMP 97.9; O2SAT 97
[2024-08-03 14:00] VITALS: BP_SYST 121; BP_SYST 130; BP_SYST 133; BP_DIAS 79; BP_DIAS 85; PULSE 57; PULSE 66; PULSE 85; O2SAT 95
--- NOTE | 2024-08-03 16:27 | DVHPN2 ---
Subjective 59-year-old male with a history of type 2 diabetes and hypertension came for generalized weakness and dizziness He had dizziness for about a month now He was here and was diagnosed with vertigo and was sent home meclizine but is not helping He is also having some nausea According to his who is at the bedside he also is having difficulty formulating his words Changes from previous H/P or p: Changes Objective Vitals Vital Signs Date Time Temp Pulse Resp B/P (MAP) Pulse Ox O2 Delivery O2 Flow Rate FiO2 08/03/24 12:30 97.9 51 20 138/74 (95) 97 97.9 08/02/24 20:27 Room Air* 0 21 Intake/Output Intake and Output 08/03/24 07:00 Intake Total 240 ml Balance 240 ml Intake Oral 240 ml # Voids 3 General Appearance: Alert, Oriented X3, Cooperative, No acute distress Lungs: Clear to auscultation, Normal air movement Cardiovascular: Regular rate, Normal S1, Normal S2 Abdomen: Normal bowel sounds, Soft, No tenderness Extremities: No edema Medications Current Medications Medications Dose Ordered Sig/Shubham Route Start Time Stop Time Status Last Admin Dose Admin Lisinopril 20 mg DAILY PO 08/03/24 10:00 08/03/24 09:36 20 MG Hydrochlorothiazide 25 mg DAILY PO 08/03/24 10:00 08/03/24 09:37 25 MG Diagnostic Test (Pha) 1 strip ACHS 08/02/24 22:00 08/03/24 12:13 1 STRIP Insulin Human Regular ACHS SC 08/02/24 22:00 08/02/24 21:47 4 UNITS Dextrose 50 ml UD PRN IV 08/02/24 19:00 Ondansetron HCl 4 mg Q4HP PRN IV 08/02/24 19:00 Acetaminophen 650 mg Q6HP PRN PO 08/02/24 19:00 08/03/24 01:40 650 MG Aspirin 81 mg DAILY PO 08/03/24 10:00 08/03/24 09:35 81 MG Atorvastatin Calcium 10 mg HS PO 08/02/24 22:00 08/02/24 21:50 10 MG Laboratory Results Laboratory Tests 08/02/24 13:11 Urinalysis Test 08/03/24 00:05 Urine Color Yellow (Yellow) Urine Clarity Clear (Clear) Urine pH 5.5 (5.0-9.0) Urine Specific Rogers 1.034 (1.001-1.035) Urine Protein Trace (Negative) H Urine Ketones 1+ (Negative) H Urine Blood Negative /uL (Negative) Urine Nitrite Negative (Negative) Urine Bilirubin Negative (Negative) Urine Urobilinogen Normal mg/dL (Negative) Urine Leukocyte Esterase Negative /uL (Negative) Urine RBC 1 /hpf (0 - 3) Urine Microscopic WBC 2 /HPF (0-3) Urine Squamous Epithelial Cells Few /hpf (<5) Urine Bacteria Few /hpf (None Seen) H Urine Mucus Few (None Seen) Urine Glucose 1+ mg/dL (Normal) H Microbiology Microbiology Date/Time Source Procedure Growth Status 08/02/24 21:29 Nose MRSA Screen - Final Complete Assessment/Plan Assessment/Plan Dizziness Type 2 diabetes Hypertension Mixed hyperlipidemia Plan Aspirin Lipitor Resume the home medications hydrochlorothiazide and lisinopril MRI is negative Carotid Doppler was done 1 year ago was normal Neurology consult Repeat echocardiogram, last echo was done 1 year ago Discussed with the at the bedside Full code Advance directives discussed for 20 minute Plan discussed with: Patient Date of Service: August 03, 2024 Billing Provider: JAYY PFEIFFER MD Common Visit Codes: [id number] INP/OBS CARE(HIGH) Secondary Visit Codes: [id number] CARE PLAN 30 MINUTES JAYY PFEIFFER MD August 03, 2024 16:27
[2024-08-03 21:00] VITALS: BP 139/86; PULSE 63; RESP 16; TEMP 98.3; O2SAT 96
--- NOTE | 2024-08-03 23:20 | DVHINCON2 ---
Date of service: August 03, [address] Jackson Reason for Consultation Slurred speech History of Present Illness Mr. Garibay is a 59 years old right-handed gentleman with a history of hypertension, diabetes, BPH, he came to the [facility] on 07/13/2024 with a chief company of dizziness, headache. At this time, he is alert and fully oriented, but is not a good historian,, he provided the following history I saw him on 07/13/2024 for cerebellum dysfunction/vertigo Since 05/2024, he has very brief spells of dizziness/spinning sensation, being tilted off triggered by lying down, getting up from bed, raising or bending the head, he has noticed turning on to the left side in the bed also triggers a mild attack. He denies vision changes focal weakness numbness except for intermittent pain in the right leg Since he was discharged from the [facility] last time, he has gait disturbance, in the he feels drunk when he walks, and he needs put his hands on the wall or furniture as for support On 08/01/2024, his noticed slurred speech on him Urinalysis, 07/13/2024: WBC: 1, urine leukocyte esterase: negative CBC, : Unremarkable BMP, 08/02/2024: Unremarkable TG/HDL/LDL/HDL, 08/02/2024: 158/136/118/30 Vitamin B12, 06/2023: 970 Folic acid, 06/2023: 10.32 TSH, 08/02/2024: 1.15 CT head, : No CT evidence of acute intracranial abnormality MRI head, 07/14/2024: No intracranial abnormality identified MRI head, 08/03/2024: No acute abnormal MRI findings of the brain . Past Medical History Hypertension, diabetes, BPH Past Surgical History Tonsillectomy Family History: Diabetes mellitus G8 MOTHER Family History Diabetes. Mother had dementia Social History He is not a tobacco smoker, he chews tobacco. He was no history of alcohol or recreational substance abuse Allergies: Coded Allergies: Penicillins (Verified Allergy, Severe, anaphylaxis, 07/13/24) Home Meds Active Scripts Meclizine HCl (Meclizine 25) 25 Mg Tab, 25 MG PO Q8HP PRN, #30 TAB Prov:JADE JORGE RESIDENT CARE AIDE 07/15/24 Loratadine (Loratadine) 10 Mg Tab, 10 MG PO DAILY for 30 Days, #30 TAB 0 Refills Prov:RATNA BECKER RESIDENT CARE AIDE 01/14/24 Linagliptin Base (TRADJENTA) 5 Mg Tab, 1 TAB PO DAILY for 30 Days, #30 TAB 2 Refills Prov:STEFANIE CHAVEZ RESIDENT 07/16/23 Reported Medications Metformin Hydrochloride (Glumetza) 1,000 Mg Tab, 1000 MG PO BID 07/13/24 Tamsulosin Hcl (Flomax) 0.4 Mg Cap, 0.4 MG PO DAILY, CAP 07/15/23 Lisinopril & Hydrochlorothiazi (Zestoretic 20-25 mg) 1 Tab Tab, 1 TAB PO DAILY, TAB 07/15/23 Current Medications Current Medications Medications (Trade) Dose Ordered Sig/Shubham Route PRN Reason Start Time Stop Time Status Last Admin Lisinopril (Zestril Tablet) 20 mg DAILY PO 08/03/24 10:00 08/03/24 09:36 Hydrochlorothiazide (hydroCHLOROthiazide TABLET) 25 mg DAILY PO 08/03/24 10:00 08/03/24 09:37 Aspirin 81 mg DAILY PO 08/03/24 10:00 08/03/24 09:35 Review of Systems As above, the other systems are negative Vital Signs Vital Signs Date Time Temp Pulse Resp B/P (MAP) Pulse Ox O2 Delivery O2 Flow Rate FiO2 08/03/24 21:00 98.3 63 16 139/86 (103) 96 98.3 08/02/24 20:27 Room Air* 0 21 Physical Exam GENERAL EXAM: General: the patient is well developed and nourished. No acute distress. HEENT: Normocephalic, neck is supple, no carotid bruits. No mass. RESPIRATORY: Normal respiratory effort with symmetrical lung expansion. Lungs clear to auscultation. CARDIOVASCULAR: Regular rate and rhythm with no murmurs. S1, S2. ABDOMEN: Soft, nontender, normal bowel sound NEUROLOGICAL: MENTAL STATUS: Awake and alert. Oriented to person, place, time and general circumstances. SPEECH, LANGUAGE, HIGHER CORTICAL FUNCTION: no aphasia, but there is slight dysathria. CRANIAL NERVES: #2: Intact visual duncan to confrontation. The optic discs were sharp. #3,4,6: Pupils are equal, round and reactive. EOMs full and conjugate. No nystagmus. #5: Facial sensation intact in all three divisions bilaterally. Mandibular strength intact. #7: Facial muscles symmetrical and strength intact. #8: Hearing grossly normal to voice. Tympanic membranes are intact #9,10: Uvula and soft palate rise in the midline. Swallow and voice are normal. #11: Trapezius and sternomastoid strength intact bilaterally. #12: Tongue midline. No fasciculations or atrophy. SENSATION: Sensation to touch and pinprick is normal. MOTOR: Normal tone in the upper and lower extremity. Normal muscle bulk. No fasciculations. No abnormal movements or posturing. Muscle strength of the major groups in the upper extremities is 5/5. Muscle strength of the major groups in the lower extremities is 5/5. REFLEXES: Deep tendon reflexes normal and symmetrical. No pathological reflexes. CEREBELLAR/COORDINATION: Finger to nose is normal bilaterally. GAIT/STATION: Slightly unsteady Labs/Diagnostic Data Labs Test 08/03/24 21:33 08/03/24 00:05 08/02/24 16:16 08/02/24 13:11 Range/Units POC Glucose 148 H 70-106 mg/dl Urine Color Yellow Yellow Urine Clarity Clear Clear Urine pH 5.5 5.0-9.0 Urine Specific [place] 1.034 1.001-1.035 Urine Protein Trace H Negative Urine Ketones 1+ H Negative Urine Blood Negative Negative /uL Urine Nitrite Negative Negative Urine Bilirubin Negative Negative Urine Urobilinogen Normal Negative mg/dL Urine Leukocyte Esterase Negative Negative /uL Urine RBC 1 0 - 3 /hpf Urine Microscopic WBC 2 0-3 /HPF Urine Squamous Epithelial Cells Few <5 /hpf Urine Bacteria Few H None Seen /hpf Urine Mucus Few None Seen Urine Glucose 1+ H Normal mg/dL Troponin I High Sensitivity 5 </=54 ng/L White Blood Count 7.0 4.4-10.8 10^3/uL Red Blood Count 5.43 4.5-5.90 10^6/uL Hemoglobin 16.8 13.5-17.5 g/dL Hematocrit 48.8 41.0-53.0 % Mean Corpuscular Volume 90.0 80.0-100.0 fL Mean Corpuscular Hemoglobin 31.0 28.0-32.0 pg Mean Corpuscular Hemoglobin Concent 34.5 32.0-36.0 g/dL Red Cell Distribution Width 13.7 11.8-14.3 % Platelet Count 231 140-450 10^3/uL Mean Platelet Volume 7.7 6.9-10.8 fL Neutrophils (%) (Auto) 67.1 37.0-80.0 % Lymphocytes (%) (Auto) 19.7 10.0-50.0 % Monocytes (%) (Auto) 9.1 0.0-12.0 % Eosinophils (%) (Auto) 3.8 0.0-7.0 % Basophils (%) (Auto) 0.3 0.0-2.0 % Neutrophils # (Auto) 4.7 1.6-8.6 10 ^3/uL Lymphocytes # (Auto) 1.4 0.4-5.4 10 ^3/uL Monocytes # (Auto) 0.6 0-1.3 10 ^3/uL Eosinophils # (Auto) 0.3 0-0.8 10 ^3/uL Basophils # (Auto) 0 0-0.2 10 ^3/uL Nucleated Red Blood Cells 0.0 % Sodium Level 144 136-145 mmol/L Potassium Level 3.8 3.5-5.1 mmol/L Chloride Level 111 H 98-107 mmol/L Carbon Dioxide Level 24 20-31 mmol/L Anion Gap 9 5-15 Blood Urea Nitrogen 21 9-23 mg/dL Creatinine 0.96 0.700-1.30 mg/dL Glomerular Filtration Rate Calc 90 >90 mL/min BUN/Creatinine Ratio 21.9 H 10.0-20.0 Serum Glucose 159 H 74-106 mg/dL Calcium Level 9.9 8.7-10.4 mg/dL Triglycerides Level 158 H < 150 mg/dL Cholesterol Level 163 < 200 mg/dL LDL Cholesterol 118 H < 100 mg/dL HDL Cholesterol 30 L 40-59 mg/dL Thyroid Stimulating Hormone (TSH) 1.15 0.55-4.78 uIU/mL Microbiology Date/Time Source Procedure Growth Status 08/02/24 21:29 Nose MRSA Screen - Final Complete Assessment Vertigo Benign paroxysmal positional vertigo Gait disturbance Slurred speech Unremarkable MRI brain on 07/14/2024 and Plan/Recommendation Monitoring Supportive treatment Telemetry Up to chair Physical therapy Further address benign paroxysmal positional vertigo as outpatient More recommendation per clinical course This medical document was created using an electronic medical record system with [employer] computerized dictation system. Although this document has been carefully reviewed, there may still be some phonetic and typographical errors. These areas are purely typographical due to imperfections of the software programs, and do not reflect any compromise in the patient's medical care Plan discussed with: Patient, Other VAISHALI MEJIA MD August 03, 2024 23:20
[2024-08-04] VITALS (8 sets, daily range): BP systolic 103–128; BP diastolic 65–82; PULSE 45–74; RESP 14–18; TEMP 97.4–98.8; O2SAT 95–98
--- NOTE | 2024-08-04 10:21 | DVHPN2 ---
Subjective Still c/o dizziness when he gets up HR 50-60 Changes from previous H/P or p: Changes Objective Vitals Vital Signs Date Time Temp Pulse Resp B/P (MAP) Pulse Ox O2 Delivery O2 Flow Rate FiO2 08/04/24 09:53 117/81 08/04/24 08:58 98.1 61 16 95 98.1 08/03/24 20:00 Room Air* 0 21 Intake/Output Intake and Output 08/04/24 07:00 Intake Total 1320 ml Balance 1320 ml Intake Oral 1320 ml # Voids 7 General Appearance: Alert, Oriented X3, Cooperative, No acute distress Lungs: Clear to auscultation, Normal air movement Cardiovascular: Regular rate, Normal S1, Normal S2 Abdomen: Normal bowel sounds, Soft, No tenderness Extremities: No edema Medications Current Medications Medications Dose Ordered Sig/Shubham Route Start Time Stop Time Status Last Admin Dose Admin Lisinopril 20 mg DAILY PO 08/03/24 10:00 08/04/24 09:53 20 MG Hydrochlorothiazide 25 mg DAILY PO 08/03/24 10:00 08/04/24 09:52 25 MG Diagnostic Test (Pha) 1 strip ACHS 08/02/24 22:00 08/04/24 06:29 1 STRIP Insulin Human Regular ACHS SC 08/02/24 22:00 08/04/24 06:28 2 UNITS Dextrose 50 ml UD PRN IV 08/02/24 19:00 Ondansetron HCl 4 mg Q4HP PRN IV 08/02/24 19:00 Acetaminophen 650 mg Q6HP PRN PO 08/02/24 19:00 08/04/24 09:52 650 MG Aspirin 81 mg DAILY PO 08/03/24 10:00 08/04/24 09:53 81 MG Atorvastatin Calcium 10 mg HS PO 08/02/24 22:00 08/03/24 22:19 10 MG Laboratory Results Laboratory Tests 08/02/24 13:11 Chemistry Test 08/04/24 05:12 Magnesium Level 2.0 mg/dL (1.6-2.6) Urinalysis Test 08/03/24 00:05 Urine Color Yellow (Yellow) Urine Clarity Clear (Clear) Urine pH 5.5 (5.0-9.0) Urine Specific [place] 1.034 (1.001-1.035) Urine Protein Trace (Negative) H Urine Ketones 1+ (Negative) H Urine Blood Negative /uL (Negative) Urine Nitrite Negative (Negative) Urine Bilirubin Negative (Negative) Urine Urobilinogen Normal mg/dL (Negative) Urine Leukocyte Esterase Negative /uL (Negative) Urine RBC 1 /hpf (0 - 3) Urine Microscopic WBC 2 /HPF (0-3) Urine Squamous Epithelial Cells Few /hpf (<5) Urine Bacteria Few /hpf (None Seen) H Urine Mucus Few (None Seen) Urine Glucose 1+ mg/dL (Normal) H Microbiology Microbiology Date/Time Source Procedure Growth Status 08/02/24 21:29 Nose MRSA Screen - Final Complete Assessment/Plan Assessment/Plan Dizziness Type 2 diabetes Hypertension Mixed hyperlipidemia Plan Aspirin Lipitor Resume the home medications hydrochlorothiazide and lisinopril MRI is negative Carotid Doppler was done 1 year ago was normal Neurology consult Repeat echocardiogram, last echo was done 1 year ago Discussed with the at the bedside Full code Advance directives discussed for 20 minute 08/04/24: Dizziness: Physical therapy Bradycardia: Consult Cardiology, echocardiogram Aspirin Lipitor Hydrochlorothiazide Lisinopril Monitor closely Plan discussed with: Patient My Orders Orders - JAYY PFEIFFER MD Procedure Category Date Status Time * Neurology Consult CONS 08/03/24 Transmitted 16:23 * Cardiology Consult CONS 08/04/24 Transmitted 08:47 Date of Service: August 04, 2024 Billing Provider: JAYY PFEIFFER MD Common Visit Codes: [id number] INP/OBS CARE(HIGH) JAYY PFEIFFER MD August 04, 2024 10:21
--- NOTE | 2024-08-04 15:33 | DVHINCON2 ---
NIDIA BENDER [facility] 08/04/24 1533: Date Seen: August 04, 2024 Referring Physician MD Manuel Reason for Consultation Bradycardia History of Present Illness This is a pleasant 59-year-old man who presented to the emergency room with a chief complaint of dizziness for three weeks. The patient complains of dizziness mostly associated with positional changes such as standing from a lying or sitting position and associated with slurred speech. Orthostatic vital signs are negative. A 12 lead electrocardiogram revealed a normal sinus rhythm at 74 bpm. sales operations consultant reviewed revealing intermittent sinus bradycardia as low as 45 bpm without evidence of atrioventricular blocks or sinus pauses. Bradycardia events are mostly HS. Of note, the patient had a recent admission to this facility for similar complains where he was diagnosed with autonomic dysfunction and severe hypovolemia secondary to diarrhea and for which he was administered IV fluids and sent home on meclizine as needed for dizziness with discharged home on 07/15/2024. Past medical history includes hypertension, onf-iuehlrm-qoqydhqst diabetes mellitus, benign prostatic hyperplasia on tamsulosin, and obesity. Past Medical History Past medical history reviewed. No other significant than mentioned above. Past Surgical History Cataracts Family History: Diabetes mellitus G8 MOTHER Family History Family history reviewed. Social History Denies the use of illicit drugs, alcohol, or tobacco use. Allergies: Coded Allergies: Penicillins (Verified Allergy, Severe, anaphylaxis, 07/13/24) Home Meds Active Scripts Meclizine HCl (Meclizine 25) 25 Mg Tab, 25 MG PO Q8HP PRN, #30 TAB Prov:JADE JORGE TRANSPORTATION PROJECT MANAGER 07/15/24 Loratadine (Loratadine) 10 Mg Tab, 10 MG PO DAILY for 30 Days, #30 TAB 0 Refills Prov:RATNA BECKER TRANSPORTATION PROJECT MANAGER 01/14/24 Linagliptin Base (TRADJENTA) 5 Mg Tab, 1 TAB PO DAILY for 30 Days, #30 TAB 2 Refills Prov:STEFANIE CHAVEZ RESIDENT 07/16/23 Reported Medications Metformin Hydrochloride (Glumetza) 1,000 Mg Tab, 1000 MG PO BID 07/13/24 Tamsulosin Hcl (Flomax) 0.4 Mg Cap, 0.4 MG PO DAILY, CAP 07/15/23 Lisinopril & Hydrochlorothiazi (Zestoretic 20-25 mg) 1 Tab Tab, 1 TAB PO DAILY, TAB 07/15/23 Home Meds Home medications reviewed. Review of Systems Constitutional: No symptom reported Ears, Nose, & Throat: No symptom reported Eyes: No symptom reported Neurological: Dizziness, slurred speech Pulmonary/Respiratory: No symptom reported Cardiovascular: No symptom reported Gastrointestinal: No symptom reported Genitourinary: No symptom reported Musculoskeletal: No symptom reported Skin: No symptom reported Psychiatric: No symptom reported Endocrine: No symptom reported Hemotologic/Lymphatic: No symptom reported Vital Signs Vital Signs Date Time Temp Pulse Resp B/P (MAP) Pulse Ox O2 Delivery O2 Flow Rate FiO2 08/04/24 13:00 97.4 68 16 111/81 (91) 98 97.4 08/04/24 08:00 Room Air* 0 21 Physical Exam General Appearance: Cooperative. Well developed. Well nourished. In no acute distress Head Exam: Normal inspection Neck Exam: Normal inspection. Non-tender. Normal alignment Pulmonary/Respiratory: Chest non-tender. Clear bilateral breath sounds Cardiovascular/Chest: Regular rate and rhythm. S1, S2. Sinus rhythm with no evidence of AV blocks or sinus pauses. No murmurs. No JVD. Peripheral Pulses: 2+ Radial (R). 2+ Radial (L). 2+ Pedal (R). 2+ Pedal (L) Abdominal Exam: Normal bowel sounds. Soft. Nontender. No hepatospenomegaly. No masses Ankle Exam: Negative ankle edema Lower extremities: Negative lower extremity edema Neuro/Mental Status: A&O x4. Coherent Thoughts/Psych: Normal thought pattern. Appropriate mood and affect. Good judgement and insight Appearance: In no acute distress Skin Exam: Normal inspection. Normal color. Warm. Dry Labs/Diagnostic Data Labs Test 08/04/24 11:11 08/04/24 05:12 08/03/24 00:05 08/02/24 16:16 Range/Units POC Glucose 151 H 70-106 mg/dl Magnesium Level 2.0 1.6-2.6 mg/dL Urine Color Yellow Yellow Urine Clarity Clear Clear Urine pH 5.5 5.0-9.0 Urine Specific [place] 1.034 1.001-1.035 Urine Protein Trace H Negative Urine Ketones 1+ H Negative Urine Blood Negative Negative /uL Urine Nitrite Negative Negative Urine Bilirubin Negative Negative Urine Urobilinogen Normal Negative mg/dL Urine Leukocyte Esterase Negative Negative /uL Urine RBC 1 0 - 3 /hpf Urine Microscopic WBC 2 0-3 /HPF Urine Squamous Epithelial Cells Few <5 /hpf Urine Bacteria Few H None Seen /hpf Urine Mucus Few None Seen Urine Glucose 1+ H Normal mg/dL Troponin I High Sensitivity 5 </=54 ng/L Test 08/02/24 13:11 Range/Units White Blood Count 7.0 4.4-10.8 10^3/uL Red Blood Count 5.43 4.5-5.90 10^6/uL Hemoglobin 16.8 13.5-17.5 g/dL Hematocrit 48.8 41.0-53.0 % Mean Corpuscular Volume 90.0 80.0-100.0 fL Mean Corpuscular Hemoglobin 31.0 28.0-32.0 pg Mean Corpuscular Hemoglobin Concent 34.5 32.0-36.0 g/dL Red Cell Distribution Width 13.7 11.8-14.3 % Platelet Count 231 140-450 10^3/uL Mean Platelet Volume 7.7 6.9-10.8 fL Neutrophils (%) (Auto) 67.1 37.0-80.0 % Lymphocytes (%) (Auto) 19.7 10.0-50.0 % Monocytes (%) (Auto) 9.1 0.0-12.0 % Eosinophils (%) (Auto) 3.8 0.0-7.0 % Basophils (%) (Auto) 0.3 0.0-2.0 % Neutrophils # (Auto) 4.7 1.6-8.6 10 ^3/uL Lymphocytes # (Auto) 1.4 0.4-5.4 10 ^3/uL Monocytes # (Auto) 0.6 0-1.3 10 ^3/uL Eosinophils # (Auto) 0.3 0-0.8 10 ^3/uL Basophils # (Auto) 0 0-0.2 10 ^3/uL Nucleated Red Blood Cells 0.0 % Sodium Level 144 136-145 mmol/L Potassium Level 3.8 3.5-5.1 mmol/L Chloride Level 111 H 98-107 mmol/L Carbon Dioxide Level 24 20-31 mmol/L Anion Gap 9 5-15 Blood Urea Nitrogen 21 9-23 mg/dL Creatinine 0.96 0.700-1.30 mg/dL Glomerular Filtration Rate Calc 90 >90 mL/min BUN/Creatinine Ratio 21.9 H 10.0-20.0 Serum Glucose 159 H 74-106 mg/dL Calcium Level 9.9 8.7-10.4 mg/dL Triglycerides Level 158 H < 150 mg/dL Cholesterol Level 163 < 200 mg/dL LDL Cholesterol 118 H < 100 mg/dL HDL Cholesterol 30 L 40-59 mg/dL Thyroid Stimulating Hormone (TSH) 1.15 0.55-4.78 uIU/mL Microbiology Date/Time Source Procedure Growth Status 08/02/24 21:29 Nose MRSA Screen - Final Complete Assessment Sinus bradycardia rule out chronotropic incompetence Rule out obstructive sleep apnea Zuw-ytyrdls-wqnjijbui diabetes mellitus Hypertension BPH on tamsulosin Obesity Plan/Recommendation (Dr. Cisse) The patient presents with intermittent sinus bradycardia at rest with no ev idence of atrioventricular blocks or sinus pauses. He is scheduled for a chronotropic response evaluation at first available. In the meantime, avoid AV jamie blocking agents. Orthostatic VS, TSH level, bilateral carotid duplex, and brain MRI are all negative. There is also correlation in between bradycardic events at HS for which patient should be ruled out for obstructive sleep apnea as outpatient. He is scheduled for an outpatient follow-up with Cardiology for an event monitor on 08/10/2024 at 1400. Notify cardiology in the setting of high degree AV blocks on monitor or HR <30 bpm. Rest of plan per clinical course. Thank you for allowing us to participate in this patient's care. Please call if you have any questions or concerns. Critical care time: 40 min. This medical document was created using an electronic medical record system with voice recognition software and computerized dictation system. Although this document has been carefully reviewed, there might still be some phonetic and typographical errors. Occasional wrong-word or ``sound-alike�� substitutions may have occurred due to the inherent limitations of voice recognition software. These areas are purely typographical due to imperfections of the software programs and do not reflect any compromise in the patient's medical care. Please read the chart carefully and recognize, using context, where these substitutions have occurred. Plan discussed with: Patient, Other [place]HA Physical activity limitations: NA Date of Service: August 04, 2024 Billing Provider: NIDIA BENDER ARMATURE INSPECTOR Cardiology Common Codes: [id number] INP/OBS CARE (High) ADI PINEDA DO 08/04/24 1936: Date Seen: August 04, 2024 Family History: Diabetes mellitus G8 MOTHER Allergies: Coded Allergies: Penicillins (Verified Allergy, Severe, anaphylaxis, 07/13/24) Home Meds Active Scripts Meclizine HCl (Meclizine 25) 25 Mg Tab, 25 MG PO Q8HP PRN, #30 TAB Prov:JADE JORGE TRANSPORTATION PROJECT MANAGER 07/15/24 Loratadine (Loratadine) 10 Mg Tab, 10 MG PO DAILY for 30 Days, #30 TAB 0 Refills Prov:RATNA BECKER TRANSPORTATION PROJECT MANAGER 01/14/24 Linagliptin Base (TRADJENTA) 5 Mg Tab, 1 TAB PO DAILY for 30 Days, #30 TAB 2 Refills Prov:STEFANIE CHAVEZ RESIDENT 07/16/23 Reported Medications Metformin Hydrochloride (Glumetza) 1,000 Mg Tab, 1000 MG PO BID 07/13/24 Tamsulosin Hcl (Flomax) 0.4 Mg Cap, 0.4 MG PO DAILY, CAP 07/15/23 Lisinopril & Hydrochlorothiazi (Zestoretic 20-25 mg) 1 Tab Tab, 1 TAB PO DAILY, TAB 07/15/23 Plan/Recommendation The patient was discussed with Nidia Bender NP. I agree with her Assessment and Plan, which was formulated with me. Plan discussed with: Patient Date of Service: August 04, 2024 Billing Provider: ADI PINEDA DO Cardiology Common Codes: [id number] INP/OBS CARE (High) NIDIA BENDER ARMATURE INSPECTOR August 04, 2024 15:33 ADI PINEDA DO August 04, 2024 19:36
--- NOTE | 2024-08-04 22:37 | DVHPN2 ---
Progress Note - Dictate Date Seen: August 04, 2024 Medical Necessity Reason Pt with a Central, PICC or Fol: No Subjective Mr. Garibay is a 59 years old right-handed gentleman with a history of hypertension, diabetes, BPH, he came to the [facility] on 07/13/2024 with a chief company of dizziness, headache. I saw him on 07/13/2024 for cerebellum dysfunction/vertigo I have seen and examined the patient was, talked to his nurse, the patient is doing fine, fully oriented, still has gait disturbance, dizziness, and voice is slightly slurry He was noticed to have bradycardia, assurance analyst is on case Urinalysis, 07/13/2024: WBC: 1, urine leukocyte esterase: negative CBC, : Unremarkable BMP, 08/02/2024: Unremarkable TG/HDL/LDL/HDL, 08/02/2024: 158/136/118/30 Vitamin B12, 06/2023: 970 Folic acid, 06/2023: 10.32 TSH, 08/02/2024: 1.15 CT head, : No CT evidence of acute intracranial abnormality MRI head, 07/14/2024: No intracranial abnormality identified MRI head, 08/03/2024: No acute abnormal MRI findings of the brain vital signs Vital Sign Date Time Temp Pulse Resp B/P (MAP) Pulse Ox O2 Delivery O2 Flow Rate FiO2 08/04/24 17:00 97.8 54 14 104/76 (85) 98 97.8 08/04/24 08:00 Room Air* 0 21 Total Intake and Output 08/03/24 08/03/24 08/04/24 15:00 23:00 07:00 Intake Total 120 ml 450 ml 750 ml Balance 120 ml 450 ml 750 ml medications Current Medications Medications Dose Ordered Sig/Shubham Route Start Time Stop Time Status Last Admin Dose Admin Lisinopril 20 mg DAILY PO 08/03/24 10:00 08/04/24 09:53 20 MG Hydrochlorothiazide 25 mg DAILY PO 08/03/24 10:00 08/04/24 09:52 25 MG Diagnostic Test (Pha) 1 strip ACHS 08/02/24 22:00 08/04/24 22:15 1 STRIP Insulin Human Regular ACHS SC 08/02/24 22:00 08/04/24 21:54 3 UNITS Dextrose 50 ml UD PRN IV 08/02/24 19:00 Ondansetron HCl 4 mg Q4HP PRN IV 08/02/24 19:00 Acetaminophen 650 mg Q6HP PRN PO 08/02/24 19:00 08/04/24 09:52 650 MG Aspirin 81 mg DAILY PO 08/03/24 10:00 08/04/24 09:53 81 MG Atorvastatin Calcium 10 mg HS PO 08/02/24 22:00 08/04/24 21:51 10 MG objective General: the patient is well developed and nourished. No acute distress. MENTAL STATUS: Awake and alert. Oriented to person, place, time and general circumstances. SPEECH, LANGUAGE, HIGHER CORTICAL FUNCTION: no aphasia, but there is slight dysathria. CRANIAL NERVES: Pupils are equal, round and reactive. EOMs full and conjugate. No nystagmus. Facial sensation intact in all three divisions bilaterally. Mandibular strength intact. Facial muscles symmetrical and strength intact. SENSATION: Sensation to touch and pinprick is normal. MOTOR: Normal tone in the upper and lower extremity. Normal muscle bulk. No fasciculations. No abnormal movements or posturing. Muscle strength of the major groups in the extremities is 5/5. REFLEXES: Deep tendon reflexes normal and symmetrical. No pathological reflexes. CEREBELLAR/COORDINATION: Finger to nose is normal bilaterally. GAIT/STATION: Slightly unsteady laboratory and microbiology Laboratory Tests 08/02/24 13:11 Test 08/02/24 13:11 Range/Units Serum Glucose 159 H 74-106 mg/dL Problem List Vertigo Benign paroxysmal positional vertigo Gait disturbance Slurred speech Unremarkable MRI brain on 07/14/2024 and Bradycardia Assessment/Plan Monitoring Supportive treatment Telemetry Up to chair Physical therapy Further address benign paroxysmal positional vertigo as outpatient Cardiology on case More recommendation per clinical course This medical document was created using an electronic medical record system with [employer] dictation system. Although this document has been carefully reviewed, there may still be some phonetic and typographical errors. These areas are purely typographical due to imperfections of the software programs, and do not reflect any compromise in the patient's medical care Prognosis poor Plan discussed with: Patient, Other VAISHALI MEJIA MD August 04, 2024 22:37
[2024-08-05] VITALS (8 sets, daily range): BP systolic 106–131; BP diastolic 66–91; PULSE 54–83; RESP 16–18; TEMP 98.4–98.7; O2SAT 95–96
--- NOTE | 2024-08-05 10:20 | DVHCARD ---
Cardiology Stress Test [place] Treadmill Stress Test [place] Referring MD: BA Bender Protocol: Mod. kiran (without cardiolite) Reason for referral: Other (Chronotropic response evaluation) Target heart Rate:@85%: 136 Percent MPHR: 160 METS: 2.3 Resting Heart rate: 83 Resting Blood Pressure: 131/91 Exercise Heart Rate: 129 Exercise Blood Pressure: 146/127 Reason for Termination of Test: Completion of Protocol Baseline EKG: NSR Stress EKG: Sinus tachycardia Functional Capacity: Mildly Decreased Heart Rate Response: Adequate Blood Pressure Response: Hypertensive Arrhythmia?: No Comments: NOT A STRESS TEST. CHRONOTROPIC RESPONSE EVALUATION Date of Service: August 05, 2024 Billing Provider: STEFFEN BENDER Cardiology Common Codes: PROCEDURE ONLY Treadmill for Chron Res Eval: 42564-THGLK, INTERPRETATION, RPT STEFFEN BENDER August 05, 2024 10:20
--- NOTE | 2024-08-05 10:27 | DVHPN2 ---
Consult Progress Note Date Seen: August 05, 2024 Subjective Review of Systems: CVS:Normal, RESPIRATORY:Normal, NEURO:Abnormal (Dizziness) Other Systems: C/o dizziness mostly with positional changes Objective vital signs Vital Sign Date Time Temp Pulse Resp B/P (MAP) Pulse Ox O2 Delivery O2 Flow Rate FiO2 08/05/24 09:37 109/66 08/05/24 09:00 98.7 63 16 96 98.7 08/05/24 08:00 Room Air* 0 21 Total Intake and Output 08/04/24 08/04/24 08/05/24 15:00 23:00 07:00 Intake Total 800 ml 600 ml Balance 800 ml 600 ml medications Current Medications Medications Dose Ordered Sig/Shubham Route Start Time Stop Time Status Last Admin Dose Admin Lisinopril 20 mg DAILY PO 08/03/24 10:00 08/05/24 09:37 20 MG Hydrochlorothiazide 25 mg DAILY PO 08/03/24 10:00 08/05/24 09:36 25 MG Diagnostic Test (Pha) 1 strip ACHS 08/02/24 22:00 08/05/24 06:41 1 STRIP Insulin Human Regular ACHS SC 08/02/24 22:00 08/05/24 06:40 2 UNITS Dextrose 50 ml UD PRN IV 08/02/24 19:00 Ondansetron HCl 4 mg Q4HP PRN IV 08/02/24 19:00 Acetaminophen 650 mg Q6HP PRN PO 08/02/24 19:00 08/04/24 09:52 650 MG Aspirin 81 mg DAILY PO 08/03/24 10:00 08/05/24 09:36 81 MG Atorvastatin Calcium 10 mg HS PO 08/02/24 22:00 08/04/24 21:51 10 MG Examination: LUNGS:Normal, CVS:Normal, NEURO:Normal laboratory and microbiology Laboratory Tests 08/02/24 13:11 Test 08/02/24 13:11 Range/Units Serum Glucose 159 H 74-106 mg/dL Problem List/Assessment/Plan Problem List/Assessment/Plan Sinus bradycardia w/o AV blocks or sinus arrest Chronotropic incompetence ruled out Rule out obstructive sleep apnea Agp-rjkzxie-kgwfgiclr diabetes mellitus Hypertension BPH on tamsulosin Obesity Plan/Recommendation (Dr. Arellano) The patient presents with intermittent sinus bradycardia at rest with no evidence of atrioventricular blocks or sinus pauses. He underwent a chronotropic response evaluation on a treadmill for a total of 6 minutes with an exercise heart rate up to 129 bpm. There is correlation in between bradycardic events at HS/rest for which patient should be ruled out for obstructive sleep apnea as outpatient. Orthostatic VS, TSH level, bilateral carotid duplex, and brain MRI are all negative. Avoid AV jamie blocking agents. Consider discontinuation of Tamsulosin. He is scheduled for an outpatient follow-up with Cardiology for an event monitor and transthoracic echocardiogram results on 08/10/2024 at 1400. 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 Advised to avoid heavy machinery use given persistent dizziness and lack of balance. Continue neurological recommendations. Kindly call if in need to re-consult. Thank you for allowing us to participate in this patient's care. This medical document was created using an electronic medical record system with voice recognition software and computerized dictation system. Although this document has been carefully reviewed, there might still be some phonetic and typographical errors. Occasional wrong-word or ``sound-alike�� substitutions may have occurred due to the inherent limitations of voice recognition software. These areas are purely typographical due to imperfections of the software programs and do not reflect any compromise in the patient's medical care. Please read the chart carefully and recognize, using context, where these substitutions have occurred. Plan discussed with: Patient, Other Date of Service: August 05, 2024 Billing Provider: STEFFEN BENDER Cardiology Common Codes: [id number] HOSP CARE(High STEFFEN BENDER August 05, 2024 10:27
--- NOTE | 2024-08-05 11:38 | DVHPN2 ---
Subjective Stress test today Changes from previous H/P or p: Changes Objective Vitals Vital Signs Date Time Temp Pulse Resp B/P (MAP) Pulse Ox O2 Delivery O2 Flow Rate FiO2 08/05/24 09:58 83 17 92 08/05/24 09:37 109/66 08/05/24 09:00 98.7 96 98.7 08/05/24 08:00 Room Air* 0 21 Intake/Output Intake and Output 08/05/24 07:00 Intake Total 1400 ml Balance 1400 ml Intake Oral 1400 ml # Voids 6 # Bowel Movements 3 General Appearance: Alert, Oriented X3, Cooperative, No acute distress Lungs: Clear to auscultation, Normal air movement Cardiovascular: Regular rate, Normal S1, Normal S2 Abdomen: Normal bowel sounds, Soft, No tenderness Extremities: No edema Medications Current Medications Medications Dose Ordered Sig/Shubham Route Start Time Stop Time Status Last Admin Dose Admin Lisinopril 20 mg DAILY PO 08/03/24 10:00 08/05/24 09:37 20 MG Hydrochlorothiazide 25 mg DAILY PO 08/03/24 10:00 08/05/24 09:36 25 MG Diagnostic Test (Pha) 1 strip ACHS 08/02/24 22:00 08/05/24 11:08 1 STRIP Insulin Human Regular ACHS SC 08/02/24 22:00 08/05/24 11:09 2 UNITS Dextrose 50 ml UD PRN IV 08/02/24 19:00 Ondansetron HCl 4 mg Q4HP PRN IV 08/02/24 19:00 Acetaminophen 650 mg Q6HP PRN PO 08/02/24 19:00 08/04/24 09:52 650 MG Aspirin 81 mg DAILY PO 08/03/24 10:00 08/05/24 09:36 81 MG Atorvastatin Calcium 10 mg HS PO 08/02/24 22:00 08/04/24 21:51 10 MG Laboratory Results Laboratory Tests 08/02/24 13:11 Urinalysis Test 08/03/24 00:05 Urine Color Yellow (Yellow) Urine Clarity Clear (Clear) Urine pH 5.5 (5.0-9.0) Urine Specific [place] 1.034 (1.001-1.035) Urine Protein Trace (Negative) H Urine Ketones 1+ (Negative) H Urine Blood Negative /uL (Negative) Urine Nitrite Negative (Negative) Urine Bilirubin Negative (Negative) Urine Urobilinogen Normal mg/dL (Negative) Urine Leukocyte Esterase Negative /uL (Negative) Urine RBC 1 /hpf (0 - 3) Urine Microscopic WBC 2 /HPF (0-3) Urine Squamous Epithelial Cells Few /hpf (<5) Urine Bacteria Few /hpf (None Seen) H Urine Mucus Few (None Seen) Urine Glucose 1+ mg/dL (Normal) H Microbiology Microbiology Date/Time Source Procedure Growth Status 08/02/24 21:29 Nose MRSA Screen - Final Complete Assessment/Plan Assessment/Plan Dizziness Type 2 diabetes Hypertension Mixed hyperlipidemia Plan Aspirin Lipitor Resume the home medications hydrochlorothiazide and lisinopril MRI is negative Carotid Doppler was done 1 year ago was normal Neurology consult Repeat echocardiogram, last echo was done 1 year ago Discussed with the at the bedside Full code Advance directives discussed for 20 minute 08/04/24: Dizziness: Physical therapy Bradycardia: Consult Cardiology, echocardiogram Aspirin Lipitor Hydrochlorothiazide Lisinopril Monitor closely 08/05/2024: Stress test today Echocardiogram still pending Aspirin and Lipitor Monitor closely The rest of the management will depend on the hospital course Plan discussed with: Patient My Orders Orders - JAYY PFEIFFER MD Procedure Category Date Status Time Stress Test Routine NM 08/05/24 Taken 10:44 Date of Service: August 05, 2024 Billing Provider: JAYY PFEIFFER MD Common Visit Codes: [id number] INP/OBS CARE(HIGH) JAYY PFEIFFER MD August 05, 2024 11:38
--- NOTE | 2024-08-05 12:40 | DVHSR ---
APPROVED REPORT EXAM: Two-dimensional and M-mode echocardiogram with Doppler and color Doppler. Blood Pressure: 138/74 mmHg INDICATION Dizziness RISK FACTORS Height: 6'0", Weight: 207 DIMENSIONS LVDd3.8 (3.8-5.7cm)LA (2D)3.7 (1.9-4.0cm)Aortic Root3.4 (2.0-3.7cm) LVDs2.6 (2.5-4.0cm)LA (MM) (1.9-4.0cm)Aortic Cusp Exc1.9 (1.5-2.0cm) EF (%) 60.0 (55-70%)Rt. Atrium3.4 (1.9-4.0cm)Asc. Aorta cm IVSd1.0 (0.7-1.1cm)RV (D) (1.8-2.4cm) PWd1.1 (0.7-1.1cm) Mitral Valve MitralMitral Stenosis E wave0.61m/sMV Mean GR.mmHg A wave0.85m/sMV Peak GR.mmHg E/A ratio0.72D MVAcm2 DECEL [id number] 1/2 Timems Aortic Valve Aortic ValveAortic Stenosis V11.17m/Mikki Mean GR.3mmHg V21.18m/Mikki Peak GR.6mmHg LVOT Diameter2.0 (1.8-2.4cm)Doppler AVA3.11cm2 Pulmonic Valve V20.85m/s Other Information Quality : Rhythm : Bradycardia Technically limited study due to body habitus. Conclusion lvef 60% mild LVH normal rv function left atrium enlarged no severe valve abnormalities noted
--- NOTE | 2024-08-05 18:52 | DVHDS2 ---
Discharge Summary Date of Admission August 02, 2024 at 18:48 Date of Discharge: August 05, 2024 Labs/Diagnostic Data: Laboratory Results Test 08/05/24 16:13 08/04/24 05:12 08/03/24 00:05 08/02/24 16:16 POC Glucose 171 mg/dl (70-106) Magnesium Level 2.0 mg/dL (1.6-2.6) Urine Color Yellow (Yellow) Urine Clarity Clear (Clear) Urine pH 5.5 (5.0-9.0) Urine Specific [place] 1.034 (1.001-1.035) Urine Protein Trace (Negative) Urine Ketones 1+ (Negative) Urine Blood Negative /uL (Negative) Urine Nitrite Negative (Negative) Urine Bilirubin Negative (Negative) Urine Urobilinogen Normal mg/dL (Negative) Urine Leukocyte Esterase Negative /uL (Negative) Urine RBC 1 /hpf (0 - 3) Urine Microscopic WBC 2 /HPF (0-3) Urine Squamous Epithelial Cells Few /hpf (<5) Urine Bacteria Few /hpf (None Seen) Urine Mucus Few (None Seen) Urine Glucose 1+ mg/dL (Normal) Troponin I High Sensitivity 5 ng/L (</=54) Test 08/02/24 13:11 White Blood Count 7.0 10^3/uL (4.4-10.8) Red Blood Count 5.43 10^6/uL (4.5-5.90) Hemoglobin 16.8 g/dL (13.5-17.5) Hematocrit 48.8 % (41.0-53.0) Mean Corpuscular Volume 90.0 fL (80.0-100.0) Mean Corpuscular Hemoglobin 31.0 pg (28.0-32.0) Mean Corpuscular Hemoglobin Concent 34.5 g/dL (32.0-36.0) Red Cell Distribution Width 13.7 % (11.8-14.3) Platelet Count 231 10^3/uL (140-450) Mean Platelet Volume 7.7 fL (6.9-10.8) Neutrophils (%) (Auto) 67.1 % (37.0-80.0) Lymphocytes (%) (Auto) 19.7 % (10.0-50.0) Monocytes (%) (Auto) 9.1 % (0.0-12.0) Eosinophils (%) (Auto) 3.8 % (0.0-7.0) Basophils (%) (Auto) 0.3 % (0.0-2.0) Neutrophils # (Auto) 4.7 10 ^3/uL (1.6-8.6) Lymphocytes # (Auto) 1.4 10 ^3/uL (0.4-5.4) Monocytes # (Auto) 0.6 10 ^3/uL (0-1.3) Eosinophils # (Auto) 0.3 10 ^3/uL (0-0.8) Basophils # (Auto) 0 10 ^3/uL (0-0.2) Nucleated Red Blood Cells 0.0 % Sodium Level 144 mmol/L (136-145) Potassium Level 3.8 mmol/L (3.5-5.1) Chloride Level 111 mmol/L (98-107) Carbon Dioxide Level 24 mmol/L (20-31) Anion Gap 9 (5-15) Blood Urea Nitrogen 21 mg/dL (9-23) Creatinine 0.96 mg/dL (0.700-1.30) Glomerular Filtration Rate Calc 90 mL/min (>90) BUN/Creatinine Ratio 21.9 (10.0-20.0) Serum Glucose 159 mg/dL (74-106) Calcium Level 9.9 mg/dL (8.7-10.4) Triglycerides Level 158 mg/dL (< 150) Cholesterol Level 163 mg/dL (< 200) LDL Cholesterol 118 mg/dL (< 100) HDL Cholesterol 30 mg/dL (40-59) Thyroid Stimulating Hormone (TSH) 1.15 uIU/mL (0.55-4.78) Other Laboratory Tests 08/02/24 13:11 Brief Hx & Hospital Course: Final diagnoses: Benign positional vertigo Dizziness Type 2 diabetes Hypertension Mixed hyperlipidemia 59 year old male with history of diabetes and hypertension and hyperlipidemia came with dizziness. He had a diagnoses of vertigo and was given meclizine few weeks ago but he says he did not feel any better and therefore he came to the emergency room and was admitted and had evaluation again Workup has been practically negative including MRI of the brain and echocardiogram. Neurology recommended conservative treatment for vertigo Because he was also borderline bradycardic heart rate in the high 50s and low 60s we consulted Cardiology. Cardiology recommended a stress test which had done today and it was negative Cardiology has recommended outpatient follow up for an event monitor. Patient can be discharged home to follow up as an outpatient with his primary care physician and with Cardiology Resume the home medications Stable for discharge Condition at Discharge: Stable Final Diagnosis/Problems List Paroxysmal Benign Potional Vertigo Dizziness Type 2 diabetes Hypertension Mixed hyperlipidemia Discharge Disposition: Home SNF Discharge Will this Physician continue t: No Discharge Instruct/Medications Diet: Cardiac 2g Na,low cholest Activity: No Restrictions, As Tolerated Follow Up/Referral: PCP STEPHEN Medications: Same home meds Discharge Statement: "Patient was advised to return to the ER or call 911 if any headaches, dizziness, shortness of breath, chest pain, abdominal pain, bleeding, fevers, or worsening of medical condition. Patient was counseled about treatment plan, medications, possible side effects, patient�verbalized understanding. All questions were answered to the best of my ability. This discharge took greater then 30 minutes in planning, reviewing documentation, counseling the patient, and discussing with other team members." ASSESSMENT ASSESSMENT Assessment Paroxysmal Benign Potional Vertigo Date of Service: August 05, 2024 Billing Provider: JAYY PFEIFFER MD Common Visit Codes: 60640-TDB/OBS DISCH DAY >30min JAYY PFEIFFER MD August 05, 2024 18:52
--- NOTE | 2024-08-05 21:15 | DVHPN2 ---
Progress Note - Dictate Date Seen: August 05, 2024 Medical Necessity Reason Pt with a Central, PICC or Fol: No Subjective Mr. Garibay is a 59 years old right-handed gentleman with a history of hypertension, diabetes, BPH, he came [facility] on 07[facility]2024 with a chief company of dizziness, headache. I saw him on 07/13/2024 for cerebellum dysfunction/vertigo I have seen and examined the patient, talked to his nurse, the patient is doing fine, he was to be discharged today, he speech sounds fine today, but he reports drifting to the left side when he walks I recommend him to follow with his doctor, and to do the poison exercises (I gave him the instruction after he was discharged from our hospital the last time) Urinalysis, 07/13/2024: WBC: 1, urine leukocyte esterase: negative CBC, : Unremarkable BMP, 08/02/2024: Unremarkable TG/HDL/LDL/HDL, 08/02/2024: 158/136/118/30 Vitamin B12, 06/2023: 970 Folic acid, 06/2023: 10.32 TSH, 08/02/2024: 1.15 CT head, : No CT evidence of acute intracranial abnormality MRI head, 07/14/2024: No intracranial abnormality identified MRI head, 08/03/2024: No acute abnormal MRI findings of the brain vital signs Vital Sign Date Time Temp Pulse Resp B/P (MAP) Pulse Ox O2 Delivery O2 Flow Rate FiO2 08/05/24 20:00 Room Air* 0 21 08/05/24 19:33 98.7 66 17 96 08/05/24 16:42 106/72 (83) Total Intake and Output 08/04/24 08/04/24 08/05/24 15:00 23:00 07:00 Intake Total 800 ml 600 ml Balance 800 ml 600 ml medications Current Medications Medications Dose Ordered Sig/Shubham Route Start Time Stop Time Status Last Admin Dose Admin Lisinopril 20 mg DAILY PO 08/03/24 10:00 08/05/24 09:37 20 MG Hydrochlorothiazide 25 mg DAILY PO 08/03/24 10:00 08/05/24 09:36 25 MG Diagnostic Test (Pha) 1 strip ACHS 08/02/24 22:00 08/05/24 16:29 1 STRIP Insulin Human Regular ACHS SC 08/02/24 22:00 08/05/24 16:29 3 UNITS Dextrose 50 ml UD PRN IV 08/02/24 19:00 Ondansetron HCl 4 mg Q4HP PRN IV 08/02/24 19:00 Acetaminophen 650 mg Q6HP PRN PO 08/02/24 19:00 08/04/24 09:52 650 MG Aspirin 81 mg DAILY PO 08/03/24 10:00 08/05/24 09:36 81 MG Atorvastatin Calcium 10 mg HS PO 08/02/24 22:00 08/04/24 21:51 10 MG objective General: the patient is well developed and nourished. No acute distress. MENTAL STATUS: Awake and alert. Oriented to person, place, time and general circumstances. SPEECH, LANGUAGE, HIGHER CORTICAL FUNCTION: no aphasia, but there is slight dysathria. CRANIAL NERVES: Pupils are equal, round and reactive. EOMs full and conjugate. No nystagmus. Facial sensation intact in all three divisions bilaterally. Mandibular strength intact. Facial muscles symmetrical and strength intact. SENSATION: Sensation to touch and pinprick is normal. MOTOR: Normal tone in the upper and lower extremity. Normal muscle bulk. No fasciculations. No abnormal movements or posturing. Muscle strength of the major groups in the extremities is 5/5. REFLEXES: Deep tendon reflexes normal and symmetrical. No pathological reflexes. CEREBELLAR/COORDINATION: Finger to nose is normal bilaterally. GAIT/STATION: Slightly unsteady laboratory and microbiology Laboratory Tests 08/02/24 13:11 Test 08/02/24 13:11 Range/Units Serum Glucose 159 H 74-106 mg/dL Problem List Vertigo Benign paroxysmal positional vertigo Gait disturbance Slurred speech Unremarkable MRI brain on 07/14/2024 and Bradycardia Assessment/Plan Monitoring Supportive treatment Telemetry Up to chair Physical therapy Further address benign paroxysmal positional vertigo as outpatient Cardiology on case More recommendation per clinical course This medical document was created using an electronic medical record system with [employer] system. Although this document has been carefully reviewed, there may still be some phonetic and typographical errors. These areas are purely typographical due to imperfections of the software programs, and do not reflect any compromise in the patient's medical care Prognosis poor Plan discussed with: Patient, Other VAISHALI MEJIA MD August 05, 2024 21:15
== END 2024-08-05 20:45 | disposition home or self-care (01) | DRG 149 ==
LOC: ER 12:19 → OVERFLOW 18:48 → CENTRAL 18:52 → TELE-CENTR 08-04 12:43
PROVIDERS: ADMIT Internal Medicine Geriatric Medicine; ATTEND Internal Medicine Geriatric Medicine
DX: H81.13 Benign paroxysmal vertigo, bilateral (principal); E11.9 Type 2 diabetes mellitus without complications; N40.0 Benign prostatic hyperplasia without lower urinary tract symptoms; I10 Essential (primary) hypertension; E78.2 Mixed hyperlipidemia; E66.9 Obesity, unspecified; R26.9 Unspecified abnormalities of gait and mobility; R47.81 Slurred speech; Z88.0 Allergy status to penicillin; Z79.84 Long term (current) use of oral hypoglycemic drugs; Z83.3 Family history of diabetes mellitus; Z81.8 Family history of other mental and behavioral disorders; Z82.3 Family history of stroke; Z68.28 Body mass index [BMI] 28.0-28.9, adult; Z79.899 Other long term (current) drug therapy
CPT/HCPCS: 36415; 70450; 70551; 71045; 80048; 80061; 81001; 82962; 83735; 84443; 84484; 85025; 87081; 93005; 93017; 93306; 97116; 97163; 97530; 99291; G0378; J1815

== ENCOUNTER 2024-10-18 08:44 | Outpatient (CLI) | payer OTHER ==
[2024-10-18 10:36] LABS: Hematocrit 43.7 % (41.0-53.0); Hemoglobin 15.6 g/dL (13.5-17.5); Mean Corpuscular Hemoglobin 31.4 pg (28.0-32.0); Mean Corpuscular Volume 88.1 fL (80.0-100.0); Nucleated Red Blood Cells % 0.1 %
[2024-10-18 10:44] LABS: Alkaline Phosphatase 70 U/L (46-116); Anion Gap 8 (5-15); BUN/Creatinine Ratio 19.4 (10.0-20.0); Blood Urea Nitrogen 20 mg/dL (9-23); Calcium 9.9 mg/dL (8.7-10.4); Chloride 105 mmol/L (98-107); Total Protein 6.3 g/dL (5.7-8.2); Triglycerides 97 mg/dL (< 150)
[2024-10-18 10:45] LABS: Albumin 4.3 g/dL (3.2-4.8); Bilirubin, Total 1.1 mg/dL (0.2-1.0); Cholesterol 148 mg/dL (< 200)
[2024-10-18 10:46] LABS: Alanine Aminotransferase 49 U/L (7-40); Carbon Dioxide 32 mmol/L (20-31); Glucose 113 mg/dL (74-106); HDL Cholesterol 34 mg/dL (40-59); Potassium 3.4 mmol/L (3.5-5.1); Sodium 145 mmol/L (136-145)
[2024-10-18 12:56] LABS: Free T3 2.9 pg/mL (2.3-4.2)
[2024-10-18 12:57] LABS: Free T4 (Free Thyroxine) 0.93 ng/dL (0.89-1.76)
== END 2024-10-18 17:00 | disposition home or self-care (01) ==
LOC: LAB 08:44
PROVIDERS: ATTEND Internal Medicine
DX: I95.9 Hypotension, unspecified (principal); R42 Dizziness and giddiness
CPT/HCPCS: 36415; 80053; 80061; 84439; 84443; 84481; 85025

== ENCOUNTER 2024-10-21 09:45 | Outpatient (CLI) | payer OTHER ==
[~2024-10-21] VITALS: Ht 182.9 cm; Wt 83.9 kg
[2024-10-21] MEDS: REGADENOSON 0.4 MG/5 ML SYRG IV ONE ×2 (09:24→11:34)
--- NOTE | 2024-11-15 11:17 | DVHSR ---
APPROVED REPORT Exam: Nuclear Stress Test BMI: 0 Stress Test Details Stress Test: Pharmacologic stress testing performed using 0.4 mg of regadenoson per 5 mL given IV ov er 10 seconds. HR Resting HR: 44 bpmMax Heart Rate (APMHR): 160.331966 bpm Max HR Achieved: 86 bpmTarget HR (85% APMHR): 136.984533 bpm % of APMHR: 53.75 Recovery HR: 53 bpm BP Resting BP: 141/76 mmHg Recovery BP: 130/73 mmHg ECG Resting ECG: Sinus Bradycardia Clinical Reason for Termination: Completed protocol Nurse Comments Recieved pt. from [facility]. A/Ox4 on RA. Connected to laboratory monitor, VS stable. PIV flushes well. Re viewed POC. Pt. verbalized understanding of procedure including risks and side effects, agrees for st ress testing. Lexiscan stress test performed per protocol. [facility] tech administered Cardiolite. Pt. tolerated well . Pt. stable, no change on exam. VS returned to baseline. Transferred to [facility] via wheelchair w/ te ch. Stress ECG Conclusion lvef 53% septal ischemia inferior wall ischemia clinical correlate NM EXAM: Myocardial Perfusion REST/STRESS Imaging Protocol: Rest Tc-99m/Stress Tc-99m 1 day Resting Data Rest SPECT myocardial perfusion imaging was performed in supine position 60 minutes following the int ravenous injection of 11.4 mCi of Tc-99m Sestamibi. Time of rest injection: 09:30 Date: 10/21/2024 Time of rest imagin:30 Date: 10/21/2024 Administration Route: IV Administration Site: Left AC Pharmacologic Stress Pharmacologic stress test was performed by injecting Regadenoson 0.4 mg IV push followed by the intra venous injection of 31.4 mCi of Tc-99m Sestamibi. Time of stress injection: 11:30 Date: 10/21/2024 Time of stress imagin:30 Date: 10/21/2024 Administration Route: IV Administration Site: Left AC Gated Stress SPECT was performed 60 minutes after stress injection. The images were gated to evaluate regional wall motion and calculate left ventricular ejection fracti on. Stress only was performed in the Supine position. Nuclear Conclusion Nuclear Findings: positive for ischemia lvef 53% septal ischemia inferior wall ischemia clinical correlate
== END 2024-10-21 17:00 | disposition home or self-care (01) ==
LOC: XYW 09:45
PROVIDERS: ATTEND Internal Medicine
DX: I25.9 Chronic ischemic heart disease, unspecified (principal); R00.1 Bradycardia, unspecified; R07.9 Chest pain, unspecified
CPT/HCPCS: 78452; 93017; A9500; J2785

== ENCOUNTER 2024-11-02 17:42 | Inpatient (IN) | payer OTHER ==
[~2024-11-02] VITALS: Ht 182.9 cm; Wt 81.0 kg
--- NOTE | 2024-11-02 18:18 | ED.PDOC ---
History of Present Illness HPI Comments This is a 59-year-old male with past medical history of hypertension, type 2 diabetes mellitus, BPPV presented to the ED via EMS with a complaint of lightheadedness and generalized weakness, diaphoresis and chest discomfort for last 2 days prior to this visit. According to the EMS they brought the patient from home and at scene he was diaphoretic, heart rate was 80, blood pressure systolic was low 90, orthostatic was positive and they gave the patient 500 mL bolus of normal saline that improved the blood pressure to 106/64. The patient mentioned that he has diarrhea for last 2 days and also complaint of nausea for the same duration. He was previously admitted in [facility] on last July with a complaint of dizziness and later diagnosed with BPPV and following Dr. Nicole. He denies active chest pain, shortness of breath, blurred vision, abdominal pain, vomiting, dysuria, hematuria or any recent positive sick contact. Chief Complaint: General Weakness Time Seen by MD: 17:54 Primary Care Provider: courtney Allergies: Coded Allergies: Penicillins (Verified Allergy, Severe, anaphylaxis, 07/13/24) Home Meds Active Scripts Meclizine HCl (Meclizine 25) 25 Mg Tab, 25 MG PO Q8HP PRN, #30 TAB Prov:JADE JORGE TUBING MILL OPERATOR 07/15/24 Loratadine (Loratadine) 10 Mg Tab, 10 MG PO DAILY for 30 Days, #30 TAB 0 Refills Prov:RATNA BECKER [employer]ING M[employer] OPERATOR 01/14/24 Linagliptin Base (TRADJENTA) 5 Mg Tab, 1 TAB PO DAILY for 30 Days, #30 TAB 2 Refills Prov:STEFANIE CHAVEZ RESIDENT 07/16/23 Reported Medications Metformin Hydrochloride (Glumetza) 1,000 Mg Tab, 1000 MG PO BID 07/13/24 Tamsulosin Hcl (Flomax) 0.4 Mg Cap, 0.4 MG PO DAILY, CAP 07/15/23 Lisinopril & Hydrochlorothiazi (Zestoretic 20-25 mg) 1 Tab Tab, 1 TAB PO DAILY, TAB 07/15/23 Information Source: Patient, Emergency Med Personnel Mode of Arrival: EMS Severity: Moderate Timing: Days Duration: Since onset Prehospital treatment: IVF Past Medical History PAST MEDICAL HISTORY: DM, HTN Surgical History: Tonsillectomy Family History Family History: Family hx of DM, Family hx of Cancer, Family hx of stroke Social History Smoker: Non-Smoker Alcohol: Denies ETOH Use Drugs: Other Lives In: Home Constitutional: reports: diaphoresis, weakness; denies: chills, fatigue, fever, malaise, sweats, others EENTM: denies: blurred vision, double vision, ear bleeding, ear discharge, ear drainage, ear pain, ear ringing, eye pain, eye redness, hearing loss, mouth pain, mouth swelling, nasal discharge, nose bleeding, nose congestion, nose pain, photophobia, tearing, throat pain, throat swelling, voice changes, others Respiratory: denies: cough, hemoptysis, orthopnea, SOB at rest, shortness of breath, SOB with excertion, stridor, wheezing, others Cardiovascular: reports: lightheadedness; denies: chest pain, dizzy spells, diaphoresis, Dyspnea on exertion, edema, irregular heart beat, left arm pain, palpitations, PND, syncope, others Gastrointestinal: reports: diarrhea, nausea, vomiting; denies: abdomen distended, abdominal pain, blood streaked bowels, constipated, dysphagia, difficulty swallowing, hematemesis, melena, poor appetite, poor fluid intake, rectal bleeding, rectal pain, others Genitourinary: denies: burning, dysuria, flank pain, frequency, hematuria, incontinence, penile discharge, penile sore, pain, testicle pain, testicle swelling, urgency, others Neurological: reports: dizziness; denies: fainting, headache, left sided numbness, left sided weakness, numbness, paresthesia, pre-existing deficit, right sided numbness, right sided weakness, seizure, speech problems, tingling, tremors, weakness, others Musculoskeletal: denies: back pain, gout, joint pain, joint swelling, muscle pain, muscle stiffness, neck pain, others Integumetry: denies: bruises, change in color, change in hair/nails, dryness, laceration, lesions, lumps, rash, wounds, others Hematologic/Lymphatic: denies: anemia, blood clots, easy bleeding, easy b ruising, swollen glands, others Endocrine: denies: excessive hunger, excessive sweating, excessive thirst, excessive urination, flushing, intolerance to cold, intolerance to heat, unexplained weight gain, unexplained weight loss, others Psychiatric: denies: anxiety, bipolar disorder, depression, hopeless, panic disorder, schizophrenia, sleepless, suicidal, others Physical Exam General Appearance: Mild Distress HEENT: Other (Dry mucous membrane) Neck: Full Range of Motion, Non-Tender, Normal, Normal Inspection Respiratory: Chest Non-Tender, Lungs Clear, No Accessory Muscle Use, No Respiratory Distress, Normal Breath Sounds Cardiovascular: No Edema, No JVD, No Murmur, No Gallop, Normal Peripheral Pulses, Regular Rate/Rhythm Breast Exam: Deferred Gastrointestinal: No Organomegaly, Non Tender, No Pulsatile Mass, Normal Bowel Sounds, Soft Genitalia: Deferred Pelvic: Deferred Rectal: Deferred Extremities: No calf tenderness, Normal capillary refill, Normal inspection, Normal range of motion, Non-tender, No pedal edema Neurologic: NOT DONE Cerebellar Function: Normal Reflexes: NOT DONE Skin: Bruises Peripheral Pulses: 2+ carotid (R), 2+ carotid (L), 2+ femoral (R), 2+ femoral (L), 2+ dorsalis pedis (R), 2+ dorsalis pedis (L), 2+ Radial (R), 2+ Radial (L), 2+ Brachial (R), 2+ Brachial (L) Lymphatic: NOT DONE Was a procedure done? Was a procedure done?: No Differential Dx Considerations may include: Dizziness, hypotension, autonomic instability, CVA, BPPV X-Ray, Labs, Meds, VS Vital Signs Date Time Temp Pulse Resp B/P (MAP) Pulse Ox O2 Delivery O2 Flow Rate FiO2 11/02/24 18:06 98.1 88 16 106/64 95 98.1 11/02/24 17:50 74 Lab Test 11/02/24 18:32 Range/Units White Blood Count 7.8 4.4-10.8 10^3/uL Red Blood Count 5.13 4.5-5.90 10^6/uL Hemoglobin 16.1 13.5-17.5 g/dL Hematocrit 44.7 41.0-53.0 % Mean Corpuscular Volume 87.0 80.0-100.0 fL Mean Corpuscular Hemoglobin 31.3 28.0-32.0 pg Mean Corpuscular Hemoglobin Concent 36.0 32.0-36.0 g/dL Red Cell Distribution Width 13.3 11.8-14.3 % Platelet Count 279 140-450 10^3/uL Mean Platelet Volume 7.9 6.9-10.8 fL Neutrophils (%) (Auto) 71.1 37.0-80.0 % Lymphocytes (%) (Auto) 18.9 10.0-50.0 % Monocytes (%) (Auto) 7.9 0.0-12.0 % Eosinophils (%) (Auto) 1.5 0.0-7.0 % Basophils (%) (Auto) 0.6 0.0-2.0 % Neutrophils # (Auto) 5.6 1.6-8.6 10 ^3/uL Lymphocytes # (Auto) 1.5 0.4-5.4 10 ^3/uL Monocytes # (Auto) 0.6 0-1.3 10 ^3/uL Eosinophils # (Auto) 0.1 0-0.8 10 ^3/uL Basophils # (Auto) 0 0-0.2 10 ^3/uL Nucleated Red Blood Cells 0.4 % Sodium Level 139 136-145 mmol/L Potassium Level 3.2 L 3.5-5.1 mmol/L Chloride Level 100 98-107 mmol/L Carbon Dioxide Level 28 20-31 mmol/L Anion Gap 11 5-15 Blood Urea Nitrogen 20 9-23 mg/dL Creatinine 1.09 0.700-1.30 mg/dL Glomerular Filtration Rate Calc 78 >90 mL/min BUN/Creatinine Ratio 18.3 10.0-20.0 Serum Glucose 154 H 74-106 mg/dL Calcium Level 9.1 8.7-10.4 mg/dL Troponin I High Sensitivity < 3 L </=54 ng/L B-Type Natriuretic Peptide Pending X-Ray, Labs, Meds, VS Comment EXAMINATION: AP portable chest radiograph CLINICAL HISTORY: Dizziness COMPARISON: XY CHEST PORTABLE on DOS: 08/02/24 FINDINGS: No dominant consolidations. The costophrenic angles appear clear. No sizable pleural effusion or pneumothorax identified. The cardiomediastinal silhouette appears within normal limits given technique. IMPRESSION: No acute cardiopulmonary findings as visualized. Images Reviewed?: Images reviewed and evaluated by me Time of 1ST Reevaluation: 19:46 Reevaluation 1ST: Improved Patient Education/Counseling: Diagnosis, Treatment Family Education/Counseling: No Family Present SEPSIS Sepsis Screen Physician Orders B-Type Natriuretic Peptide (11/02/24 18:14) Chest Portable (11/02/24 18:14) Urinalysis (11/02/24 18:14) Head Without Contrast (11/02/24 19:08) Potassium Chl 20meq/100ml (11/02/24 19:45) Orthostatic Vital Signs (11/02/24 ) Vital Signs Date Time Temp Pulse Resp B/P (MAP) Pulse Ox O2 Delivery O2 Flow Rate FiO2 11/02/24 18:06 98.1 88 16 106/64 95 98.1 11/02/24 17:50 74 Laboratory Tests Test 11/02/24 18:32 White Blood Count 7.8 10^3/uL (4.4-10.8) Departure 1 Departure Time of Disposition: 19:47 Impression: Primary Impression: Dizziness Additional Impression: Hypotension Disposition: 30 STILL A PATIENT Admit to: Tele Condition: Guarded Critical Care Note Critical Care Time?: No Stability Stability form required: SUNDEEP Prescott RESIDENT Nov 02, 2024 18:18
--- NOTE | 2024-11-02 18:53 | ECG ---
[facility] Test Date: 2024-11-02 Test Time: 17:50:03 Pat Name: RICHARD TORRES Department: ED Room: 0219T Gender: M Service Cashier: LORENA : 1965 Requested By: EDELMIRA RICHTER Order Number: [id number] Reading MD: Rich Arellano Measurements Intervals [place] Rate: 74 P: 60 [place]: 157 QRS: 77 QRSD: 119 T: 35 QT: 406 QTc: 451 Interpretive Statements Sinus rhythm Electronically Signed On 11-08-2024 17:47:52 PDT by Rich Arellano Please click the below link to view image of tracing.
--- NOTE | 2024-11-02 18:56 | DVH ---
EXAMINATION: AP portable chest radiograph CLINICAL HISTORY: Dizziness COMPARISON: XY CHEST PORTABLE on DOS: 08/02/24 FINDINGS: No dominant consolidations. The costophrenic angles appear clear. No sizable pleural effusion or pne umothorax identified. The cardiomediastinal silhouette appears within normal limits given technique. IMPRESSION: No acute cardiopulmonary findings as visualized.
[2024-11-02 19:05] LABS: Hematocrit 44.7 % (41.0-53.0); Hemoglobin 16.1 g/dL (13.5-17.5); Mean Corpuscular Hemoglobin 31.3 pg (28.0-32.0); Mean Corpuscular Volume 87.0 fL (80.0-100.0); Nucleated Red Blood Cells % 0.4 %
[2024-11-02 19:17] LABS: Chloride 100 mmol/L (98-107); Sodium 139 mmol/L (136-145)
[2024-11-02 19:18] LABS: Anion Gap 11 (5-15); Carbon Dioxide 28 mmol/L (20-31)
[2024-11-02 19:19] LABS: Calcium 9.1 mg/dL (8.7-10.4)
[2024-11-02 19:24] LABS: BUN/Creatinine Ratio 18.3 (10.0-20.0); Blood Urea Nitrogen 20 mg/dL (9-23)
[2024-11-02 19:26] LABS: Glucose 154 mg/dL (74-106); Potassium 3.2 mmol/L (3.5-5.1)
[2024-11-02] MEDS ORDERED: ACETAMINOPHEN 325 MG TAB PO PRN (20:00)
[2024-11-02] MEDS ORDERED: hydrALAZINE HCL 20 MG/ML VL IV PRN (20:00)
[2024-11-02] MEDS ORDERED: HYDROcodone-ACET 5/325MG TAB PO PRN (20:00)
[2024-11-02] MEDS ORDERED: ONDANSETRON HCL 4 MG/2 ML VIAL IV PRN (20:00)
[2024-11-02] MEDS ORDERED: DOCUSATE SOD 100 MG CAP PO PRN (20:00)
[2024-11-02] MEDS ORDERED: DEXTROSE (50%) 50ML SYRG IV PRN (20:00)
[2024-11-03] MEDS: POTASSIUM CHL 20MEQ/100ML 100 ML IV SCH (12:15)
[2024-11-03] MEDS: ACCU-CHEK COMFORT CURVE STRIP VI SCH (12:16)
[2024-11-03] MEDS: SODIUM CHLORIDE 0.9% 1,000 ML IV SCH (12:16)
[2024-11-03] MEDS: InsuLIN REG 1unit/0.01ml Soln (100units/ml) SC SCH ×2 (12:16→12:55)
[2024-11-03] MEDS: ONDANSETRON HCL 4 MG/2 ML VIAL IV ONE (12:17)
[2024-11-03] MEDS: SODIUM CHLORIDE 0.9% 1,000 ML IV ONE (12:18)
[2024-11-03 16:20] LABS: Urine Protein, UAD Negative (Negative)
[2024-11-03] MEDS: TAMSULOSIN HYDROCHLORIDE 0.4 MG CAP PO SCH (18:33)
[2024-11-03 22:05] VITALS: PULSE 71; RESP 18; O2SAT 85; O2SAT 95
--- NOTE | 2024-11-03 22:11 | DVHHP2 ---
History of Present Illness Reason for Visit: Generalized weakness History of Present Illness 59-year-old male presents for evaluation of generalized weakness. Patient reports a two day history of worsening generalized weakness with associated dizziness and diaphoresis. When EMS checked his blood pressure it was reading low. Denies abdominal pain. No fever or chills. No cardiac or respiratory symptoms. Past Medical History Vertigo, hypertension, diabetes mellitus Past Surgical History Tonsillectomy Family History Cancer, diabetes mellitus Smoke: No ALCOHOL: none Drugs: None Review of Systems Review of Systems Review of systems are currently negative otherwise addressed in HPI. Allergies: Coded Allergies: Penicillins (Verified Allergy, Severe, anaphylaxis, 07/13/24) Medications Current Medications Medications Dose Ordered Sig/Shubham Route Start Time Stop Time Status Last Admin Dose Admin Tamsulosin HCl 0.4 mg QPM PO 11/03/24 18:00 11/03/24 18:33 0.4 MG Hydralazine HCl 10 mg Q6HP PRN IV 11/02/24 20:00 Diagnostic Test (Pha) 1 strip ACHS 11/02/24 22:00 11/03/24 17:00 1 STRIP Insulin Human Regular HS SC 11/02/24 22:00 Insulin Human Regular AC SC 11/03/24 07:00 Dextrose 50 ml UD PRN IV 11/02/24 20:00 Sodium Chloride 1,000 ml @ 60 mls/hr [id number] IV 11/02/24 20:00 11/03/24 12:45 60 MLS/HR Acetaminophen/ Hydrocodone Bitart 1 tab Q4HP PRN PO 11/02/24 20:00 Ondansetron HCl 4 mg Q4HP PRN IV 11/02/24 20:00 Docusate Sodium 100 mg BIDPRN PRN PO 11/02/24 20:00 Acetaminophen 650 mg Q6HP PRN PO 11/02/24 20:00 Exam Vital Signs Vital Signs Date Time Temp Pulse Resp B/P (MAP) Pulse Ox O2 Delivery O2 Flow Rate FiO2 11/03/24 18:30 59 14 95/55 (68) 94 11/03/24 13:00 97.1 97.1 11/03/24 12:30 Room Air* 0 21 Exam Gen: 59-year-old male in no apparent distress. Skin: Warm, dry, normal color and texture, no rash. HEENT: Normocephalic atraumatic, mucous membranes moist and pink. Neck: Cervical and supraclavicular nodes normal without enlargement, trachea is midline, thyroid gland is normal without masses. Pulmonary: Clear to auscultation and percussion bilaterally. Cardiac: Regular rate and rhythm. No murmur Abdomen: Soft, nontender, nondistended, bowel sounds present all 4 quadrants, no guarding, no rigidity, no organomegaly. Extremities: No cyanosis, clubbing, no edema Neuro: Cranial nerves II through XII grossly intact, normal affect and speech, no focal motor deficits. Labs/Xrays ORDERING PHYSICIAN: JAYY PFEIFFER MD PROCEDURE(s): ECIDC - ECHO 2D MODE CARDIAC DOP REASON: dizziness ORDER NUMBER(s): [id number], ACCESSION NUMBER(s): [id number] APPROVED REPORT EXAM: Two-dimensional and M-mode echocardiogram with Doppler and color Doppler. Blood Pressure: 138/74 mmHg INDICATION Dizziness RISK FACTORS Height: 6'0", Weight: 207 DIMENSIONS LVDd 3.8 (3.8-5.7cm) LA (2D) 3.7 (1.9-4.0cm) Aortic Root 3.4 (2.0- 3.7cm) LVDs 2.6 (2.5-4.0cm) LA (MM) (1.9-4.0cm) Aortic Cusp Exc 1.9 (1.5- 2.0cm) EF (%) 60.0 (55-70%) Rt. Atrium 3.4 (1.9-4.0cm) Asc. Aorta cm IVSd 1.0 (0.7-1.1cm) RV (D) (1.8-2.4cm) PWd 1.1 (0.7-1.1cm) Mitral Valve Mitral Mitral Stenosis E wave 0.61m/s MV Mean GR. mmHg A wave 0.85m/s MV Peak GR. mmHg E/A ratio 0.7 2D MVA cm2 DECEL Time 325ms PRESS 1/2 Time ms Aortic Valve Aortic Valve Aortic Stenosis V1 1.17m/s AO Mean GR. 3mmHg V2 1.18m/s AO Peak GR. 6mmHg LVOT Diameter 2.0 (1.8-2.4cm) Doppler BETO 3.11cm2 Pulmonic Valve V2 0.85m/s Other Information Quality : Rhythm : Bradycardia Technically limited study due to body habitus. Conclusion lvef 60% mild LVH normal rv function left atrium enlarged no severe valve abnormalities noted ORDERING PHYSICIAN: SUNDEEP SOL PROCEDURE(s): CXRP - CHEST PORTABLE REASON: Dizziness ORDER NUMBER(s): [id number], ACCESSION NUMBER(s): [id number] EXAMINATION: AP portable chest radiograph CLINICAL HISTORY: Dizziness COMPARISON: XY CHEST PORTABLE on DOS: 08/02/24 FINDINGS: No dominant consolidations. The costophrenic angles appear clear. No sizable pleural effusion or pneumothorax identified. The cardiomediastinal silhouette appears within normal limits given technique. IMPRESSION: No acute cardiopulmonary findings as visualized. Labs Test 11/03/24 12:52 11/03/24 12:45 11/02/24 18:32 Range/Units POC Glucose 94 70-106 mg/dl Urine Color Yellow Yellow Urine Clarity Clear Clear Urine pH 6.0 5.0-9.0 Urine Specific [place] 1.026 1.001-1.035 Urine Protein Negative Negative Urine Ketones 1+ H Negative Urine Blood Negative Negative /uL Urine Nitrite Negative Negative Urine Bilirubin Negative Negative Urine Urobilinogen Normal Negative mg/dL Urine Leukocyte Esterase Negative Negative /uL Urine RBC <1 0 - 3 /hpf Urine Microscopic WBC 1 0-3 /HPF Urine Squamous Epithelial Cells Few <5 /hpf Urine Bacteria None seen None Seen /hpf Urine Mucus Few None Seen Urine Glucose Normal Normal mg/dL White Blood Count 7.8 4.4-10.8 10^3/uL Red Blood Count 5.13 4.5-5.90 10^6/uL Hemoglobin 16.1 13.5-17.5 g/dL Hematocrit 44.7 41.0-53.0 % Mean Corpuscular Volume 87.0 80.0-100.0 fL Mean Corpuscular Hemoglobin 31.3 28.0-32.0 pg Mean Corpuscular Hemoglobin Concent 36.0 32.0-36.0 g/dL Red Cell Distribution Width 13.3 11.8-14.3 % Platelet Count 279 140-450 10^3/uL Mean Platelet Volume 7.9 6.9-10.8 fL Neutrophils (%) (Auto) 71.1 37.0-80.0 % Lymphocytes (%) (Auto) 18.9 10.0-50.0 % Monocytes (%) (Auto) 7.9 0.0-12.0 % Eosinophils (%) (Auto) 1.5 0.0-7.0 % Basophils (%) (Auto) 0.6 0.0-2.0 % Neutrophils # (Auto) 5.6 1.6-8.6 10 ^3/uL Lymphocytes # (Auto) 1.5 0.4-5.4 10 ^3/uL Monocytes # (Auto) 0.6 0-1.3 10 ^3/uL Eosinophils # (Auto) 0.1 0-0.8 10 ^3/uL Basophils # (Auto) 0 0-0.2 10 ^3/uL Nucleated Red Blood Cells 0.4 % Sodium Level 139 136-145 mmol/L Potassium Level 3.2 L 3.5-5.1 mmol/L Chloride Level 100 98-107 mmol/L Carbon Dioxide Level 28 20-31 mmol/L Anion Gap 11 5-15 Blood Urea Nitrogen 20 9-23 mg/dL Creatinine 1.09 0.700-1.30 mg/dL Glomerular Filtration Rate Calc 78 >90 mL/min BUN/Creatinine Ratio 18.3 10.0-20.0 Serum Glucose 154 H 74-106 mg/dL Calcium Level 9.1 8.7-10.4 mg/dL Troponin I High Sensitivity < 3 L </=54 ng/L B-Type Natriuretic Peptide 2.19 0-100 pg/mL SEPSIS Sepsis Screen Date sepsis recognized/suspect: Nov 03, 2024 Time Sepsis recognized/suspect: 1300 Recent Procedure: No On Antibiotic Therapy: No Respiratory Rate >20: No Heart Rate >90: No Temp<36 C (96.8 F) or >38.3 C: No SBP <90 or MAP <65 mmHG: No New Acute Mental Status Change: No Is the patient on CPAP, BIPAP,: No Physician Orders Orthostatic Vital Signs (11/03/24 22:04) Meclizine Tablet (Antivert Tablet) (11/03/24 22:15) Consistent Carb(Ccho)Diabetes (11/04/24 Breakfast) Basic Metabolic Panel (11/03/24 22:04) NS (11/03/24 22:15) Glucose Blood (Accu-Chek Comfort Curve T (11/04/24 07:00) Mild Sliding Scale (11/04/24 07:00) Dextrose 50% Syringe (11/03/24 22:15) Admit (11/03/24 22:04) Ondansetron Hcl (Zofran) (11/03/24 22:15) Enoxaparin Sodium (Lovenox) (11/04/24 10:00) Acetaminophen Tablet (Tylenol Tablet) (11/03/24 22:15) Vital Signs Date Time Temp Pulse Resp B/P (MAP) Pulse Ox O2 Delivery O2 Flow Rate FiO2 11/03/24 18:30 59 14 95/55 (68) 94 11/03/24 17:00 54 16 96/59 (71) 94 11/03/24 15:00 53 16 91/59 (70) 94 Medications Medications Dose Ordered Sig/Shubham Route Start Time Stop Time Status Last Admin Dose Admin Tamsulosin HCl 0.4 mg QPM PO 11/03/24 18:00 11/03/24 18:33 0.4 MG Assessment/Plan Assessment/Plan Assessment Symptomatic hypotension Generalized weakness Diabetes mellitus BPPV Plan Admit the patient to [facility] to the hospitalist Orthostatic vital signs Hold antihypertensives Repeat blood work Continue treatment per orders. Plan discussed with: Patient My Orders Orders - RENU OROSCO Procedure Category Date Status Time Orthostatic Vital ORDERS 11/03/24 Verified Signs 22:04 Meclizine Tablet PHA 11/03/24 Verified (Antivert Tablet) 22:15 Consistent DIET 11/04/24 Verified Carb(Ccho)Diabetes Breakfast Basic Metabolic Panel LAB 11/03/24 Verified 22:04 NS PHA 11/03/24 Verified 22:15 Glucose Blood PHA 11/04/24 Verified (Accu-Chek Comfort 07:00 Mild Sliding Scale PHA 11/04/24 Verified 07:00 Dextrose 50% Syringe PHA 11/03/24 Verified 22:15 Admit ADMIT 11/03/24 Verified 22:04 Ondansetron Hcl PHA 11/03/24 Verified (Zofran) 22:15 Enoxaparin Sodium PHA 11/04/24 Verified (Lovenox) 10:00 Acetaminophen Tablet PHA 11/03/24 Verified (Tylenol Tablet) 22:15 Date of Service: Nov 03, 2024 Billing Provider: RENU OROSCO Common Visit Codes: [id number] INP/OBS CARE (HIGH) RENU OROSCO Nov 03, 2024 22:11
[2024-11-03] MEDS ORDERED: DEXTROSE (50%) 50ML SYRG IV PRN (22:15)
[2024-11-03] MEDS ORDERED: ACETAMINOPHEN 325 MG TAB PO PRN (22:15)
[2024-11-03] MEDS ORDERED: ONDANSETRON HCL 4 MG/2 ML VIAL IV PRN (22:15)
[2024-11-03] MEDS ORDERED: MECLIZINE HCL 25 MG TAB PO PRN (22:15)
[2024-11-03] MEDS: SODIUM CHLORIDE 0.9% 500 ML IV ONE (22:29)
[2024-11-03 22:42] LABS: Chloride 103 mmol/L (98-107); Potassium 3.5 mmol/L (3.5-5.1); Sodium 144 mmol/L (136-145)
[2024-11-03 22:43] LABS: Anion Gap 9 (5-15); Calcium 9.7 mg/dL (8.7-10.4)
[2024-11-03 22:48] LABS: BUN/Creatinine Ratio 20.0 (10.0-20.0); Blood Urea Nitrogen 22 mg/dL (9-23); Glucose 96 mg/dL (74-106)
[2024-11-03 22:50] LABS: Carbon Dioxide 32 mmol/L (20-31)
[2024-11-04] MEDS: InsuLIN REG 1unit/0.01ml Soln (100units/ml) SC SCH (06:44)
[2024-11-04] MEDS ORDERED: ACCU-CHEK COMFORT CURVE STRIP VI SCH ×2 (07:00→10:00)
[2024-11-04 07:30] VITALS: PULSE 55; RESP 16; O2SAT 97
[2024-11-04] MEDS: ENOXAPARIN SOD 40 MG/0.4 ML SYRINGE SC SCH (10:08)
[2024-11-04] MEDS: ACCU-CHEK COMFORT CURVE STRIP VI SCH (11:43)
[2024-11-04] MEDS ORDERED: cefTRIAXone 1GM/50ML D5W 50 ML IV ONE ×2 (11:45→12:00)
[2024-11-04] MEDS: SODIUM CHLORIDE 0.9% 1,000 ML IV SCH ×2 (12:00→21:14)
[2024-11-04] MEDS: POTASSIUM EFFERVESENT TAB 25 MEQ PO ONE (13:10)
[2024-11-04] MEDS: SODIUM CHLORIDE 0.9% 500 ML IV ONE (14:40)
[2024-11-04] MEDS ORDERED: SCOP1DIS9 TD (17:32)
[2024-11-04] MEDS: Ensure HIGH Protein Chocolate 8oz Bottle PO SCH (19:15)
--- NOTE | 2024-11-04 19:24 | DVHPNRES ---
Progress Note Date Seen: Nov 04, 2024 Resident Creating Document: CAMRYN OGDEN RESIDENT Medical Necessity Reason Pt with a Central, PICC or Fol: No Subjective Review of Systems This is a 59-year-old male with past medical history of hypertension, type 2 diabetes mellitus, BPPV presented to the ED via EMS with a complaint of lightheadedness and generalized weakness, diaphoresis and chest discomfort for last 2 days prior to this visit. According to the EMS they brought the patient from home and at scene he was diaphoretic, heart rate was 80, blood pressure systolic was low 90, orthostatic was positive and they gave the patient 500 mL bolus of normal saline that improved the blood pressure to 106/64. The patient mentioned that he has diarrhea for 2 episodes and also complaint of nausea for the same duration. He was previously admitted in [facility] on last July with a complaint of dizziness and later diagnosed with BPPV and following Dr. Nicole. He denies active chest pain, shortness of breath, blurred vision, abdominal pain, vomiting, dysuria, hematuria or any recent positive sick contact.\ Past Medical History Vertigo, hypertension, diabetes mellitus Past Surgical History Tonsillectomy Family History Cancer, diabetes mellitus Smoke: No ALCOHOL: none Drugs: None allergy: Penicillin ROS: Patient was seen and examined by me at the bedside. Overnight events were reviewed. Patient has been in the emergency for the past 2 days and reports that he is feeling better. He has no diarrhea episodes. He feels slightly dizzy. Objective vital signs Vital Sign Date Time Temp Pulse Resp B/P (MAP) Pulse Ox O2 Delivery O2 Flow Rate FiO2 11/04/24 17:23 88 11/04/24 15:30 18 115/70 (85) 98 11/04/24 07:30 Room Air* 0 21 11/04/24 07:30 98.1 98.1 Total Intake and Output 11/03/24 11/03/24 11/04/24 15:00 23:00 07:00 Intake Total 120 ml 420 ml 920 ml Balance 120 ml 420 ml 920 ml medications Current Medications Medications Dose Ordered Sig/Shubham Route Start Time Stop Time Status Last Admin Dose Admin Tamsulosin HCl 0.4 mg QPM PO 11/03/24 18:00 11/04/24 18:55 0.4 MG Hydralazine HCl 10 mg Q6HP PRN IV 11/02/24 20:00 Dextrose 50 ml UD PRN IV 11/02/24 20:00 Cancel Acetaminophen/ Hydrocodone Bitart 1 tab Q4HP PRN PO 11/02/24 20:00 Ondansetron HCl 4 mg Q4HP PRN IV 11/02/24 20:00 Cancel Acetaminophen 650 mg Q6HP PRN PO 11/02/24 20:00 Cancel Meclizine HCl 25 mg Q6HPRN PRN PO 11/03/24 22:15 Diagnostic Test (Pha) 1 strip ACHS 11/04/24 07:00 Cancel Insulin Human Regular ACHS SC 11/04/24 07:00 Dextrose 50 ml UD PRN IV 11/03/24 22:15 Ondansetron HCl 4 mg Q4HP PRN IV 11/03/24 22:15 Enoxaparin Sodium 40 mg DAILY SC 11/04/24 10:00 11/04/24 10:08 40 MG Acetaminophen 650 mg Q6HP PRN PO 11/03/24 22:15 Diagnostic Test (Pha) 1 strip ACHS 11/04/24 11:30 11/04/24 11:43 1 STRIP Sodium Chloride 1,000 ml @ 100 mls/hr Q10H IV 11/04/24 12:00 11/04/24 12:00 100 MLS/HR Metronidazole 100 ml @ 100 mls/hr Q8H IV 11/04/24 20:00 Examination Gen: 59-year-old male in no apparent distress. Skin: Warm, dry, normal color and texture, no rash. HEENT: Normocephalic atraumatic, mucous membranes moist and pink. Neck: Cervical and supraclavicular nodes normal without enlargement, trachea is midline, thyroid gland is normal without masses. Pulmonary: Clear to auscultation and percussion bilaterally. Cardiac: Regular rate and rhythm. No murmur Abdomen: Soft, nontender, nondistended, bowel sounds present all 4 quadrants, no guarding, no rigidity, no organomegaly. Extremities: No cyanosis, clubbing, no edema Neuro: Cranial nerves II through XII grossly intact, normal affect and speech, no focal motor deficits. laboratory and microbiology Laboratory Tests 11/03/24 22:20 11/02/24 18:32 Test 11/03/24 22:20 Range/Units Serum Glucose 96 74-106 mg/dL Labs and/or images reviewed: Labs reviewed by me, Image(s) reviewed by me Problem List/Assessment/Plan Problem List/Assessment/Plan #Acute gastroenteritis -Zofran -IV fluid continue NS 75 cc/hour -500 mL fluid bolus given -stool studies, stool culture, C diff -metronidazole continue -CMP, pending -azithromycin #Orthostatic hypotension -All hypertensive medications held as patient had hypotension -orthostatic vitals positive -TSH, cortisol ordered, pending # bradycardia -monitor for symptoms, if below 40 and symptomatic give atropine #Paroxysmal Benign Potional Vertigo #Dizziness -09/14/2024 MRI No evidence of hemodynamically significant intracranial stenosis, proximal occlusion or aneurysm -08/03/24 echo: lvef 60% -epleys maneuver negative -scopolamine patches #hx of Type 2 diabetes -Sliding scale insulin - HB A1c ordered, pending GI prophylaxis: Protonix 40 mg per orally daily DVT prophylaxis: Lovenox 40 mg subcutaneous daily Diet: diabetic diet Goals of care discussed with the patient for more than 27 minutes: Full code status Case discussed with Dr. Snyder, patient and nurse. Plan discussed with: Patient, Other (rn) My Orders My Orders Orders - CAMRYN OGDEN RESIDENT Procedure Category Date Status Time Hemoglobin A1c LAB 11/05/24 Verified 04:00 Complete Blood Count LAB 11/05/24 Verified 04:00 Comprehensive LAB 11/05/24 Verified Metabolic Panel 04:00 Lipase LAB 11/05/24 Verified 04:00 Stool Wbc LAB 11/04/24 Logged 19:05 Stool Bacterial DAX 11/04/24 Uncollected Culture 19:05 Clostridium Difficile DAX 11/04/24 Uncollected Toxin 19:05 Pantoprazole Tablet PHA 11/05/24 Logged (Protonix Tablet) 06:00 Communication Order ORDERS 11/04/24 Transmitted 19:18 CAMRYN OGDEN RESIDENT Nov 04, 2024 19:23
--- NOTE | 2024-11-04 20:12 | DVH ---
CT LS SPINE WO CONTRAST Indication: tenderness, paraesthesias EXAM DATE: 11/04/2024 07:30 PM COMPARISON: None TECHNIQUE: CT of the lumbar spine without intravenous contrast. RADIATION DOSE: CTDIvol: 17.37 mGy, DLP: 17.37 mGy*cm FINDINGS: Lumbar vertebral body heights are maintained. Moderate multilevel disc space narrowing with anterior osteophytosis. Moderate facet hypertrophic changes. Mild lumbar dextrocurvature. Moderate bilateral sacroiliac degenerative joint disease. 3 mm disc protrusions at L4-5 and L5-S1. Moderate neural foraminal stenosis at L3-4, L4-5, L5-S1. Aortic atherosclerotic disease. IMPRESSION: Moderate lumbar degenerative disc disease. Moderate bilateral sacroiliac degenerative joint disease. Mild lumbar dextrocurvature.
[2024-11-04] MEDS: AZITHROMYCIN 500MG/ 250ML 250 ML IV ONE (20:51)
[2024-11-04 22:00] VITALS: BP 99/67; PULSE 55; RESP 18; TEMP 97.4; O2SAT 96
[2024-11-05] VITALS (8 sets, daily range): BP systolic 93–128; BP diastolic 53–80; PULSE 44–63; RESP 16–18; TEMP 97.4–98.2; O2SAT 93–98
[2024-11-05] MEDS: PANTOPRAZOLE 40 MG TAB PO SCH (05:53)
[2024-11-05 05:58] LABS: Hematocrit 40.9 % (41.0-53.0); Hemoglobin 14.5 g/dL (13.5-17.5); Mean Corpuscular Hemoglobin 30.8 pg (28.0-32.0); Mean Corpuscular Volume 87.0 fL (80.0-100.0); Nucleated Red Blood Cells % 0.1 %
[2024-11-05 06:10] LABS: Albumin 4.0 g/dL (3.2-4.8); Alkaline Phosphatase 67 U/L (46-116); Anion Gap 9 (5-15); BUN/Creatinine Ratio 25.7 (10.0-20.0); Calcium 9.0 mg/dL (8.7-10.4); Carbon Dioxide 28 mmol/L (20-31); Total Protein 5.7 g/dL (5.7-8.2)
[2024-11-05 06:11] LABS: Bilirubin, Direct 0.2 mg/dL (<0.3); Bilirubin, Total 0.7 mg/dL (0.2-1.0)
[2024-11-05 06:14] LABS: Alanine Aminotransferase 44 U/L (7-40); Blood Urea Nitrogen 27 mg/dL (9-23); Chloride 110 mmol/L (98-107); Glucose 106 mg/dL (74-106); Potassium 3.3 mmol/L (3.5-5.1); Sodium 147 mmol/L (136-145)
[2024-11-05 07:03] LABS: Lipase 49 U/L (12-53)
[2024-11-05] MEDS: POTASSIUM CHL 20 Meq TABLET PO ONE (08:27)
[2024-11-05] MEDS: AZITHROMYCIN 500MG/ 250ML 250 ML IV SCH (08:58)
[2024-11-05] MEDS ORDERED: cefTRIAXone 1GM/50ML D5W 50 ML IV SCH (09:00)
--- NOTE | 2024-11-05 10:12 | DVHPNRES ---
Progress Note Date Seen: Nov 05, 2024 Resident Creating Document: CAMRYN OGDEN RESIDENT Medical Necessity Reason Pt with a Central, PICC or Fol: No Subjective Review of Systems This is a 59-year-old male with past medical history of hypertension, type 2 diabetes mellitus, BPPV presented to the ED via EMS with a complaint of lightheadedness and generalized weakness, diaphoresis and chest discomfort for last 2 days prior to this visit. According to the EMS they brought the patient from home and at scene he was diaphoretic, heart rate was 80, blood pressure systolic was low 90, orthostatic was positive and they gave the patient 500 mL bolus of normal saline that improved the blood pressure to 106/64. The patient mentioned that he had watery diarrhea for 2 episodes and also complaint of nausea for the same duration. He was previously admitted in [facility] on last July with a complaint of dizziness and later diagnosed with BPPV and following Dr. Nicole. He denies active chest pain, shortness of breath, blurred vision, abdominal pain, vomiting, dysuria, hematuria or any recent positive sick contact.\ PMH: BPPV, diabetes mellitus type 2, hypertension PSH: tonsillectomy Smoke: No ALCOHOL: none Drugs: None allergy: Penicillin ROS: Patient was seen and examined by me at the bedside. Overnight events were reviewed. Patient has been in the emergency for the past 2 days and reports that he is feeling better. He has no diarrhea episodes. He feels slightly dizzy. 11/05/2024: Patient was seen and examined by me at the bedside. Overnight events were reviewed. Patient says that his dizziness is still there on movement. We are trying scopolamine patches today and continuing with the meclizine. His heart rates in the 40s. we will continuing to monitor him. Patient also has not passed stool since he came to the hospital. We repleted his potassium today. CT head came back normal. CT of the lumbar spine showed spinal stenosis and disc bulge. Objective vital signs Vital Sign Date Time Temp Pulse Resp B/P (MAP) Pulse Ox O2 Delivery O2 Flow Rate FiO2 11/05/24 08:00 50 11/05/24 06:00 97.6 17 93/53 (66) 95 97.6 11/05/24 01:07 Room Air* 0 21 Total Intake and Output 11/04/24 11/04/24 11/05/24 14:59 22:59 06:59 Intake Total 530 ml 200 ml 340 ml Balance 530 ml 200 ml 340 ml medications Current Medications Medications Dose Ordered Sig/Shubham Route Start Time Stop Time Status Last Admin Dose Admin Tamsulosin HCl 0.4 mg QPM PO 11/03/24 18:00 11/04/24 18:55 0.4 MG Dextrose 50 ml UD PRN IV 11/02/24 20:00 Cancel Acetaminophen/ Hydrocodone Bitart 1 tab Q4HP PRN PO 11/02/24 20:00 Ondansetron HCl 4 mg Q4HP PRN IV 11/02/24 20:00 Cancel Acetaminophen 650 mg Q6HP PRN PO 11/02/24 20:00 Cancel Meclizine HCl 25 mg Q6HPRN PRN PO 11/03/24 22:15 Diagnostic Test (Pha) 1 strip ACHS 11/04/24 07:00 Cancel Insulin Human Regular ACHS SC 11/04/24 07:00 11/04/24 23:11 2 UNITS Dextrose 50 ml UD PRN IV 11/03/24 22:15 Ondansetron HCl 4 mg Q4HP PRN IV 11/03/24 22:15 Enoxaparin Sodium 40 mg DAILY SC 11/04/24 10:00 11/05/24 08:28 40 MG Acetaminophen 650 mg Q6HP PRN PO 11/03/24 22:15 Diagnostic Test (Pha) 1 strip ACHS 11/04/24 11:30 11/05/24 07:00 1 STRIP Metronidazole 100 ml @ 100 mls/hr Q8H IV 11/04/24 20:00 11/05/24 04:23 100 MLS/HR Pantoprazole Sodium 40 mg DAILY@0600 PO 11/05/24 06:00 11/05/24 05:53 40 MG Sodium Chloride 1,000 ml @ 75 mls/hr [id number] IV 11/04/24 19:15 11/05/24 08:59 75 MLS/HR Enteral Nutritional Formula 240 ml TIDWM PO 11/04/24 19:15 Azithromycin 250 ml @ 125 mls/hr DAILY IV 11/05/24 10:00 11/05/24 08:58 125 MLS/HR Patient Own Medication 1 DAILY TD 11/05/24 10:00 Examination Gen: 59-year-old male in no apparent distress. Skin: Warm, dry, normal color and texture, no rash. HEENT: Normocephalic atraumatic, mucous membranes moist and pink. Neck: Cervical and supraclavicular nodes normal without enlargement, trachea is midline, thyroid gland is normal without masses. Pulmonary: Clear to auscultation and percussion bilaterally. Cardiac: Regular rate and rhythm. No murmur Abdomen: Soft, nontender, nondistended, bowel sounds present all 4 quadrants, no guarding, no rigidity, no organomegaly. Extremities: No cyanosis, clubbing, no edema Neuro: Cranial nerves II through XII grossly intact, normal affect and speech, no focal motor deficits. laboratory and microbiology Laboratory Tests 11/05/24 05:02 Test 11/05/24 05:02 Range/Units Serum Glucose 106 74-106 mg/dL Labs and/or images reviewed: Labs reviewed by me, Image(s) reviewed by me Problem List/Assessment/Plan Problem List/Assessment/Plan #Acute gastroenteritis -Zofran -IV fluid continue NS 75 cc/hour -500 mL fluid bolus given -stool studies, stool culture, C diff -metronidazole continue -azithromycin -CMP, pending -nutritional supplement #Orthostatic hypotension -All hypertensive medications held as patient had hypotension -orthostatic vitals positive -TSH normal, cortisol 15.58 normal #Paroxysmal Benign Potional Vertigo #Dizziness secondary to ?bradycardia -09/14/2024 MRI No evidence of hemodynamically significant intracranial stenosis, proximal occlusion or aneurysm -08/03/24 echo: lvef 60% -vamsi hallpike, epleys maneuver negative -scopolamine patches 1 every 3 days -Ct head- No acute intracranial abnormality. #hx of Type 2 diabetes -Sliding scale insulin -HB A1c 5.8 -Accu-Cheks #Hypokalemia -Repleted -Magnesium levels, pending #Gait disturbance due to spinal stenosis and disc protrusion -CT LS spine: mm disc protrusions at L4-5 and L5-S1. Moderate neural foraminal stenosis at L3-4, L4-5, L5-S1; Moderate lumbar degenerative disc disease; Moderate bilateral sacroiliac degenerative joint disease; Mild lumbar dextrocurvature. - outpatient follow up GI prophylaxis: Protonix 40 mg per orally daily DVT prophylaxis: Lovenox 40 mg subcutaneous daily Diet: diabetic diet Goals of care discussed with the patient for more than 27 minutes: Full code status Case discussed with Dr. Snyder, patient and nurse. Plan discussed with: Patient, Other (rn) My Orders My Orders Orders - CAMRYN OGDEN Procedure Category Date Status Time Stool Wbc LAB 11/04/24 Logged 19:05 Stool Bacterial DAX 11/04/24 Uncollected Culture 19:05 Clostridium Difficile ADX 11/04/24 Uncollected Toxin 19:05 Pantoprazole Tablet PHA 11/05/24 In Process (Protonix Tablet) 06:00 Communication Order ORDERS 11/04/24 Transmitted 19:18 * Dietary Consult CONS 11/05/24 Transmitted 03:15 * [employer] CONS 11/05/24 Transmitted Consult 03:15 CAMRYN OGDEN RESIDENT Nov 05, 2024 10:12
--- NOTE | 2024-11-05 13:48 | DVH ---
CT HEAD WITHOUT CONTRAST INDICATION: slurred speech EXAM DATE: 11/05/2024 12:32 PM COMPARISON: MRI BRAIN HEAD WO CONTRAST on DOS: 08/03/24, CT HEAD WITHOUT CONTRAST on DOS: 08/02/24, MRI B RAIN HEAD WO CONTRAST on DOS: 07/14/24 RADIATION DOSE: CTDIvol: 57.94 mGy, DLP: 1069.34 mGy*cm PROCEDURE: CT scans of the head were obtained from the vertex to the skull base. Sagittal and coronal reconstructions were provided. All CT scans at this medical facility are performed using dose modulation techniques as appropriate t o a performed exam including the following: Automated exposure control was utilized; adjustment of th e MA and/or KV according to patient size; and use of iterative reconstruction technique. FINDINGS: There is sulcal and ventricular prominence. The brainshows normal morphology and paz-whi te matter differentiation, without intracranial hemorrhage, extra-axial fluid collection, mass effect or acute large vessel infarct. The ventricles are normal in size. The basal cisterns are patent. The skull and visible facial bones are intact. The paranasal sinuses, mastoid air cells and middle ear c avities are well-aerated. The soft tissues of the scalp are unremarkable. IMPRESSION: No acute intracranial abnormality.
[2024-11-05] MEDS: LACTULOSE 20Gm/30ML SOLN PO ONE (21:05)
[2024-11-05 22:49] LABS: COVID19 ANTIGEN SOFIA FIA NEGATIVE (NEGATIVE)
[2024-11-06 06:52] LABS: Potassium 3.6 mmol/L (3.5-5.1)
[2024-11-06 06:53] LABS: Anion Gap 10 (5-15); Carbon Dioxide 25 mmol/L (20-31)
[2024-11-06 06:54] LABS: Calcium 8.8 mg/dL (8.7-10.4)
[2024-11-06 06:57] LABS: Chloride 112 mmol/L (98-107); Sodium 147 mmol/L (136-145)
[2024-11-06 06:59] LABS: BUN/Creatinine Ratio 17.7 (10.0-20.0); Blood Urea Nitrogen 17 mg/dL (9-23)
[2024-11-06 07:00] LABS: Glucose 108 mg/dL (74-106)
[2024-11-06 07:59] VITALS: PULSE 47
[2024-11-06 08:30] VITALS: BP 132/82; PULSE 49; RESP 17; TEMP 97.8; O2SAT 95
[2024-11-06 11:07] LABS: Prostate Specific Antigen 1.6 ng/mL (0.0-4.0)
[2024-11-06] MEDS: POTASSIUM CHL 20 Meq TABLET PO ONE (12:08)
[2024-11-06 13:30] VITALS: BP 130/76; PULSE 52; RESP 18; TEMP 98.1; O2SAT 96
[2024-11-06 16:05] VITALS: TEMP 36.7
--- NOTE | 2024-11-06 16:53 | DVHDSRES ---
Discharge Summary Date of Admission Resident Creating Document: CAMRYN OGDEN RESIDENT Nov 03, 2024 at 22:04 Date of Discharge: Nov 06, 2024 Labs/Diagnostic Data: Laboratory Results Test 11/06/24 12:11 11/06/24 05:54 11/05/24 21:50 11/05/24 08:32 POC Glucose 116 mg/dl (70-106) Sodium Level 147 mmol/L (136-145) Potassium Level 3.6 mmol/L (3.5-5.1) Chloride Level 112 mmol/L (98-107) Carbon Dioxide Level 25 mmol/L (20-31) Anion Gap 10 (5-15) Blood Urea Nitrogen 17 mg/dL (9-23) Creatinine 0.96 mg/dL (0.700-1.30) Glomerular Filtration Rate Calc 90 mL/min (>90) BUN/Creatinine Ratio 17.7 (10.0-20.0) Serum Glucose 108 mg/dL (74-106) Calcium Level 8.8 mg/dL (8.7-10.4) Influenza Type A Antigen Negative (Negative) Influenza Type B Antigen Negative (Negative) SARS-CoV-2 Antigen (Rapid) Negative (NEGATIVE) Cortisol AM Sample 15.58 ug/dL (5.27-22.45) Test 11/05/24 05:02 11/04/24 19:50 11/03/24 12:45 11/02/24 18:32 White Blood Count 6.1 10^3/uL (4.4-10.8) Red Blood Count 4.70 10^6/uL (4.5-5.90) Hemoglobin 14.5 g/dL (13.5-17.5) Hematocrit 40.9 % (41.0-53.0) Mean Corpuscular Volume 87.0 fL (80.0-100.0) Mean Corpuscular Hemoglobin 30.8 pg (28.0-32.0) Mean Corpuscular Hemoglobin Concent 35.4 g/dL (32.0-36.0) Red Cell Distribution Width 13.2 % (11.8-14.3) Platelet Count 264 10^3/uL (140-450) Mean Platelet Volume 7.8 fL (6.9-10.8) Neutrophils (%) (Auto) 60.4 % (37.0-80.0) Lymphocytes (%) (Auto) 25.8 % (10.0-50.0) Monocytes (%) (Auto) 10.2 % (0.0-12.0) Eosinophils (%) (Auto) 2.7 % (0.0-7.0) Basophils (%) (Auto) 0.9 % (0.0-2.0) Neutrophils # (Auto) 3.7 10 ^3/uL (1.6-8.6) Lymphocytes # (Auto) 1.6 10 ^3/uL (0.4-5.4) Monocytes # (Auto) 0.6 10 ^3/uL (0-1.3) Eosinophils # (Auto) 0.2 10 ^3/uL (0-0.8) Basophils # (Auto) 0.1 10 ^3/uL (0-0.2) Nucleated Red Blood Cells 0.1 % Hemoglobin A1c 5.8 % A1C (<5.7) Magnesium Level 2.2 mg/dL (1.6-2.6) Total Bilirubin 0.7 mg/dL (0.2-1.0) Direct Bilirubin 0.2 mg/dL (<0.3) Aspartate Amino Transferase (AST) 29 U/L (13-40) Alanine Aminotransferase (ALT) 44 U/L (7-40) Alkaline Phosphatase 67 U/L (46-116) Total Protein 5.7 g/dL (5.7-8.2) Albumin 4.0 g/dL (3.2-4.8) Lipase 49 U/L (12-53) Free Prostate Specific Antigen 0.31 ng/mL (N/A) Percent Free Prostate Specific Ag 19.4 % (.) Prostate Specific Antigen Total 1.6 ng/mL (0.0-4.0) Troponin I High Sensitivity 9 ng/L (</=54) Thyroid Stimulating Hormone (TSH) 2.08 uIU/mL (0.55-4.78) Urine Color Yellow (Yellow) Urine Clarity Clear (Clear) Urine pH 6.0 (5.0-9.0) Urine Specific Bob White 1.026 (1.001-1.035) Urine Protein Negative (Negative) Urine Ketones 1+ (Negative) Urine Blood Negative /uL (Negative) Urine Nitrite Negative (Negative) Urine Bilirubin Negative (Negative) Urine Urobilinogen Normal mg/dL (Negative) Urine Leukocyte Esterase Negative /uL (Negative) Urine RBC <1 /hpf (0 - 3) Urine Microscopic WBC 1 /HPF (0-3) Urine Squamous Epithelial Cells Few /hpf (<5) Urine Bacteria None seen /hpf (None Seen) Urine Mucus Few (None Seen) Urine Glucose Normal mg/dL (Normal) B-Type Natriuretic Peptide 2.19 pg/mL (0-100) Other Laboratory Tests 11/06/24 05:54 11/05/24 05:02 Brief Hx & Hospital Course: This is a 59-year-old male with past medical history of hypertension, type 2 diabetes mellitus, BPPV presented to the ED via EMS with a complaint of lightheadedness and generalized weakness, diaphoresis and chest discomfort for last 2 days prior to this visit. According to the EMS they brought the patient from home and at scene he was diaphoretic, heart rate was 80, blood pressure systolic was low 90, orthostatic was positive and they gave the patient 500 mL bolus of normal saline that improved the blood pressure to 106/64. The patient mentioned that he had watery diarrhea for 2 episodes and also complaint of nausea for the same duration. He was previously admitted in [facility] on last July with a complaint of dizziness and later diagnosed with BPPV and following Dr. Nicole. He denies active chest pain, shortness of breath, blurred vision, abdominal pain, vomiting, dysuria, hematuria or any recent positive sick contact.\\ PMH: BPPV, diabetes mellitus type 2, hypertension PSH: tonsillectomy Smoke: No ALCOHOL: none Drugs: None allergy: Penicillin Brief history of hospitalization: Patient had symptomatic hypotension secondary to GI losses. He had 2 episodes of diarrhea before he came to the emergency, he had acute gastroenteritis. We started him on Zofran for his nausea, and we gave him 500 mL bolus fluid as his blood pressure was low. We continued the IV fluids 75 cc/hour and sent out for stool studies. Metronidazole was given and nutritional supplements were given as well. Azithromycin was added IV. Patient had orthostatic hypotension so all hypertensive medications were held during admission. For his history of paroxysmal benign postural vertigo, bradycardia with chronotropic competence we reviewed his previous MRI and echo. We tried Harris-Hallpike maneuver and sabrina's maneuver, both of which were negative. We continued his meclizine home medication as well. Patient still had dizziness so we tried scopolamine patch and have directed him to use it 1 patch every [address] head was done and no intracranial abnormality was noted. Patient had history of type 2 diabetes in his sliding scale insulin was started and Accu-Cheks were done. During hospitalization we also noticed his potassium levels were low and repleted them. Patient also complained of gait disturbance so we did a CT lumbar spine which showed disc protrusions at L4-L5, L5-S1. There was also stenosis of L3-L4, L4- L5, L5-S1 and moderate lumbar degenerative disc disease, moderate bilateral sacroiliac degenerative disease, mild lumbar dextrocurvature. We monitored the patient's bradycardia, dizziness and patient reports feeling a bit better than before. Scopolamine patch was started today and we are discharging him as he is stable. We also gave him 15 mL of lactulose as he had not passed stool since he came to the hospital since last 4 days. Patient had a regular bowel movement after that and reported feeling better. We have counseled the patient regarding the need of an ENT consultation outpatient for his dizziness, outpatient follow up with his primary care regarding his back pain, and asked him to continue the scopolamine patches and meclizine tablets. Patient has communicated understanding and agreed to the discharge plan. Gen: 59-year-old male in no apparent distress. Skin: Warm, dry, normal color and texture, no rash. HEENT: Normocephalic atraumatic, mucous membranes moist and pink. Neck: Cervical and supraclavicular nodes normal without enlargement, trachea is midline, thyroid gland is normal without masses. Pulmonary: Clear to auscultation and percussion bilaterally. Cardiac: Regular rate and rhythm. No murmur Abdomen: Soft, nontender, nondistended, bowel sounds present all 4 quadrants, no guarding, no rigidity, no organomegaly. Extremities: No cyanosis, clubbing, no edema Neuro: Cranial nerves II through XII grossly intact, normal affect and speech, no focal motor deficits. Operations or Procedures PROCEDURE(s): CXRP - CHEST PORTABLE REASON: Dizziness IMPRESSION: No acute cardiopulmonary findings as visualized. S2CT - LS SPINE WO CONTRAST REASON: tenderness, paraesthesias IMPRESSION: Moderate lumbar degenerative disc disease. Moderate bilateral sacroiliac degenerative joint disease. Mild lumbar dextrocurvature. WOCT - HEAD WITHOUT CONTRAST REASON: slurred speech ORDER NUMBER(s): [id number], ACCESSION NUMBER(s): [id number] CT HEAD WITHOUT CONTRAST INDICATION: slurred speech IMPRESSION: No acute intracranial abnormality. Condition at Discharge: Stable Final Diagnosis/Problems List #Symptomatic hypotension secondary to GI losses #acute gastroenteritis #Orthostatic hypotension #Paroxysmal Benign Potional Vertigo #bradycardia with chronotropic competence #hx of Type 2 diabetes #Hypokalemia #Gait disturbance due to spinal stenosis and disc protrusion Discharge Disposition: Home Discharge Instruct/Medications Diet: Consistent carbohydrate, Cardiac 2g Na,low cholest Activity: No Restrictions, As Tolerated Follow Up/Referral: Follow up with PCP in 10 days Follow up with DC clinic within 1 week Follow up outpatient with an ENT specialist Follow up with outpatient visit therapist with help of PCP Medications: Resume home medications Scheduled Linagliptin Base (Tradjenta), 1 TAB PO DAILY Lisinopril & Hydrochlorothiazi (Zestoretic 20-25 mg), 1 TAB PO DAILY, (Reported) Loratadine (Loratadine), 10 MG PO DAILY Metformin Hydrochloride (Glumetza), 1,000 MG PO BID, (Reported) Scopolamine (Scopolamine), 1 MG TD DAILY Tamsulosin Hcl (Flomax), 0.4 MG PO DAILY, (Reported) Scheduled PRN Meclizine HCl (Meclizine 25), 25 MG PO Q8HP PRN Discharge Statement: "Patient was advised to return to the ER or call 911 if any headaches, dizziness, shortness of breath, chest pain, abdominal pain, bleeding, fevers, or worsening of medical condition. Patient was counseled about treatment plan, medications, possible side effects, patientverbalized understanding. All questions were answered to the best of my ability. This discharge took greater then 30 minutes in planning, reviewing documentation, counseling the patient, and discussing with other team members." ASSESSMENT ASSESSMENT Assessment #Symptomatic hypotension secondary to GI losses Date of Service: Nov 06, 2024 Billing Provider: LY KRAUSE MD Common Visit Codes: 61252-HHW/OBS DISCH DAY >30min CAMRYN OGDEN RESIDENT Nov 06, 2024 16:53 LY KRAUSE MD Nov 08, 2024 21:14
== END 2024-11-06 16:55 | disposition home or self-care (01) | DRG 312 ==
LOC: ER 17:42 → EDBD 17:42 → OVERFLOW 11-03 22:04 → CENTRAL 11-05 13:18 → TELE-CENTR 11-05 15:24
PROVIDERS: ADMIT Student in an Organized Health Care Education/Training Program; ATTEND Emergency Medicine
DX: I95.1 Orthostatic hypotension (principal); E87.6 Hypokalemia; K52.9 Noninfective gastroenteritis and colitis, unspecified; H81.10 Benign paroxysmal vertigo, unspecified ear; R00.1 Bradycardia, unspecified; Z20.822 Contact with and (suspected) exposure to COVID-19; E11.9 Type 2 diabetes mellitus without complications; R26.9 Unspecified abnormalities of gait and mobility; I10 Essential (primary) hypertension; M51.27 Other intervertebral disc displacement, lumbosacral region; M51.26 Other intervertebral disc displacement, lumbar region; M48.061 Spinal stenosis, lumbar region without neurogenic claudication; M48.07 Spinal stenosis, lumbosacral region; M51.369 Other intervertebral disc degeneration, lumbar region without mention of lumbar back pain or lower extremity pain; Z88.0 Allergy status to penicillin; Z83.3 Family history of diabetes mellitus; Z82.3 Family history of stroke; Z80.8 Family history of malignant neoplasm of other organs or systems; Z79.899 Other long term (current) drug therapy
CPT/HCPCS: 36415; 70450; 71045; 72131; 80048; 80053; 80076; 81001; 82533; 82962; 83036; 83690; 83735; 83880; 84154; 84443; 84484; 85025; 87426; 87804; 93005; 96360; 97163; G0378; J1815; J3490

== ENCOUNTER 2024-12-06 14:40 | Outpatient (CLI) | payer OTHER ==
[~2024-12-06 14:40] MED LIST changes: +SCOP1DIS9 TD
[2024-12-06 15:03] LABS: Hematocrit 44.5 % (41.0-53.0); Hemoglobin 15.8 g/dL (13.5-17.5); Mean Corpuscular Hemoglobin 31.6 pg (28.0-32.0); Mean Corpuscular Volume 88.9 fL (80.0-100.0); Nucleated Red Blood Cells % 0.1 %
[2024-12-06 15:17] LABS: INR 1.01 (0.9-1.15); Partial Thromboplastin Time 29.0 SEC (24.5-34.5); Prothrombin Time 10.7 sec (9.3-11.8)
[2024-12-06 15:39] LABS: Alanine Aminotransferase 32 U/L (7-40); Alkaline Phosphatase 68 U/L (46-116); Anion Gap 10 (5-15); BUN/Creatinine Ratio 18.1 (10.0-20.0); Blood Urea Nitrogen 17 mg/dL (9-23); Calcium 9.7 mg/dL (8.7-10.4); Carbon Dioxide 29 mmol/L (20-31); Chloride 106 mmol/L (98-107); Potassium 3.8 mmol/L (3.5-5.1); Sodium 145 mmol/L (136-145); Total Protein 7.2 g/dL (5.7-8.2)
[2024-12-06 15:40] LABS: Albumin 4.6 g/dL (3.2-4.8)
[2024-12-06 15:42] LABS: Bilirubin, Total 1.4 mg/dL (0.2-1.0); Glucose 106 mg/dL (74-106)
== END 2024-12-06 17:00 | disposition home or self-care (01) ==
LOC: LAB 14:40
PROVIDERS: ATTEND Internal Medicine
DX: Z01.812 Encounter for preprocedural laboratory examination (principal); Z79.899 Other long term (current) drug therapy
CPT/HCPCS: 36415; 80053; 85025; 85610; 85730